=== PATIENT | female | born 1945 | race Caucasian/White ===

== ENCOUNTER → 2016-12-03 | Outpatient (CLI) | payer MEDICARE, OTHER ==
[~2016-12-03] MED LIST: ALPR.25T PO; ALPR0.254 PO; AMLO1CAP4 PO; ASCO-262 PO; ASP325T PO; ASP81CT PO; ASP81TEC PO; ATOR40TA70 PO; ATOR80TA PO; BNZ10T PO; BNZ20T PO; CALC-656 PO; CARV3.12 PO; CARV6.252 PO; CEPH500C PO; CHOL10003 PO; FISH OIL PO; FLAX100031 PO; FLC1T PO; GABA-486 PO; GABA-488 PO; GINK60CA13 PO; HCTZ12.5T PO; HYDR12.56 PO; MULT-974 PO; NITR0.3T6 SL; OMEG-12 PO; SERT50TA9 PO; SMV20T PO; TICA90TA PO; TRAM50TA2 PO; UBID100C27 PO; UBID200C PO; UBID30CA13 PO; VITA-198 PO; [UNRECOGNIZED DRUG - OTHER] PO; [UNRECOGNIZED DRUG - OTHER] PO; [UNRECOGNIZED DRUG - REMARK] PO
--- NOTE | 2016-12-03 11:30 | Diagnostic Imaging Report ---
Left leg duplex arterial ultrasound. INDICATION: Left leg pain with walking. FINDINGS: There are triphasic waveforms in the common femoral artery with transition to biphasic waveforms throughout the distal arteries to the foot in the left leg. The color Doppler demonstrates patency of vessels including the posterior tibial and dorsalis pedis in the foot. The velocities range from 61-166 cm/sec in the femoropopliteal segments and is 64 cm/sec in the posterior tibial artery. Slightly diminished flow velocity in the dorsalis pedis artery at 33 cm/sec is seen. The grayscale images demonstrate no significant plaque identified the in the femoropopliteal segments. IMPRESSION: No ultrasound evidence of significant arterial disease in the left leg. Dictated by: Dictated on workstation # [id number]
== END ==
LOC: RAD 08:38
PROVIDERS: ATTEND Family Medicine
DX: M79.605 Pain in left leg (principal)
CPT/HCPCS: 93926

== ENCOUNTER → 2016-12-06 | Outpatient (CLI) | payer MEDICARE, OTHER ==
--- NOTE | 2016-12-06 18:00 | Diagnostic Imaging Report ---
Three views of the left knee. INDICATION: Left knee pain. FINDINGS: No acute fracture or dislocation seen. Prosthesis with screws in the tibia and femur appear to relate to ACL graft surgery seen. No suprapatellar effusion is noted. There is suggestion of prominent osteophyte formation laterally with possible posttraumatic component along the lateral aspect of the tibial plateau. No significant joint space loss is seen. Only mild osteophytes in the medial and patellofemoral joint seen. IMPRESSION: No acute process. Dictated by: Dictated on workstation # [id number]
--- NOTE | 2016-12-06 18:08 | Diagnostic Imaging Report ---
Two views of the left tibia and fibula. The uppermost aspect of the tibia and fibula are included and concurrent left knee radiographs. There is no fracture or dislocation seen. Portion of tibial screw from prior ACL repair seen. The ankle joint appear grossly unremarkable. IMPRESSION: No acute process. Dictated by: Dictated on workstation # [id number]
== END ==
LOC: RAD 10:35
PROVIDERS: ATTEND Family Medicine
DX: M79.662 Pain in left lower leg (principal); M25.562 Pain in left knee
CPT/HCPCS: 73562; 73590

== ENCOUNTER → 2017-01-01 | Outpatient (CLI) | payer MEDICARE, OTHER ==
--- NOTE | 2017-01-01 15:48 | Diagnostic Imaging Report ---
Left renal ultrasound. INDICATION: Mass seen in the left kidney on MRI of the lumbar spine. FINDINGS: The left kidney is 10.5 cm in length. No focal lesion is identified. No hydronephrosis. IMPRESSION: No focal lesion is identified in the left kidney. If there is high index of suspicion, then dedicated CT scan or MRI of the kidneys could be helpful. Dictated by: Dictated on workstation # [id number]
--- NOTE | 2017-01-01 15:53 | Diagnostic Imaging Report ---
PROCEDURE: US Bilateral lower extremity arterial. TECHNIQUE: Multiple real-time grayscale images are obtained through both lower extremity arterial systems with color Doppler imaging and color Doppler spectral analysis. INDICATION: Weak pulses in the left foot. FINDINGS: Grayscale images demonstrate minimal atherosclerotic plaque in the femoropopliteal segments. Color Doppler demonstrates patency of the main arteries and the lower extremity on both sides from the common femoral to the posterior tibial and dorsalis pedis arteries. On the right side, the peak systolic velocities are in the range of 64 to 183 cm/sec in the femoropopliteal segments with mostly biphasic waveforms seen. Velocity in the posterior tibial is 75 cm/sec and in the dorsalis pedis is 45 cm/sec. On the left side, velocities are in the range of 99-211 cm/sec in the femoropopliteal segments with biphasic waveforms. The dorsalis pedis velocity is 49 and posterior tibial velocity is 86 cm/sec. IMPRESSION: Mild atherosclerotic plaque is seen in the lower extremities with largely biphasic waveforms. No focal significant stenosis is identified. Dictated by: Dictated on workstation # [id number]
== END ==
LOC: RAD 12:59
PROVIDERS: ATTEND Orthopaedic Surgery
DX: I70.203 Unspecified atherosclerosis of native arteries of extremities, bilateral legs (principal); N28.1 Cyst of kidney, acquired
CPT/HCPCS: 76775; 93925

== ENCOUNTER 2017-03-21 14:30 | Outpatient (RCR) | payer MEDICARE, OTHER | END 2017-04-07 | disposition home or self-care (01) | PROVIDERS: ATTEND Physician Assistant | DX: M48.06 Spinal stenosis, lumbar region (principal); M54.16 Radiculopathy, lumbar region ==

== ENCOUNTER → 2017-07-17 | Outpatient (CLI) | payer MEDICARE, OTHER ==
--- NOTE | 2017-07-17 17:59 | Diagnostic Imaging Report ---
PROCEDURE: US Thyroid. TECHNIQUE: Multiple real-time grayscale images were obtained of the thyroid in various projections. INDICATION: Thyroid nodule. FINDINGS: The previous thyroid ultrasound exam performed on 09/19/2016 noted a complex predominantly solid nodule involving the mid portion inferior pole of the left lobe. This measured 3.4 x 1.6 x 1.5 cm. This lesion was biopsied using ultrasound guidance on 10/08/2016. The pathology report noted follicular pattern growth and prominent fibrosis but failed to show any papillary features. On this exam, the nodule is again identified and measures 3.2 x 1.5 x 1.5 cm. The stability of this finding over a nearly year period would suggest that it is not related to an aggressive process. The previous study also identified another nodule in the mid portion of the left lobe. This nodule measures 1.1 x 0.5 x 0.9 cm and also seems similar in size to the previous exam. There is another subcentimeter nodule in the left lobe of the thyroid and it too is similar to the previous study. The hypoechoic nodules in the right lobe seen previously are again evident and no different. The thyroid gland is not enlarged with the right lobe measuring 4.7 x 1.3 x 1.2 cm and the left lobe estimated to be 4.5 x 1.7 x 1.7 cm (normal 4-5 x 2 x 2 cm or less). IMPRESSION: 1. The large complex nodule associated with the left lobe of the thyroid seen previously is again evident and no different. Most likely, this is a benign process. It may prove worthwhile to have a short-term (six-month) follow-up ultrasound exam for further study. 2. The overall appearance of the thyroid gland itself is otherwise no different. No new abnormality has developed. Dictated by: Dictated on workstation # [id number]
== END ==
LOC: RAD 12:16
PROVIDERS: ATTEND Family Medicine
DX: E04.1 Nontoxic single thyroid nodule (principal)
CPT/HCPCS: 76536

== ENCOUNTER → 2017-11-20 | Outpatient (CLI) | payer MEDICARE, OTHER ==
--- NOTE | 2017-11-21 10:07 | Diagnostic Imaging Report ---
Bilateral screening mammogram 2D views with tomosynthesis The current study was also evaluated with a Computer Aided Detection (CAD) system. Indication: Screening. No current complaints stated on the questionnaire. COMPARISON: 03/09/2015 Findings: The breasts are composed of scattered fibroglandular densities. There are scattered benign-appearing and vascular calcifications seen. Allowing for technique and positional differences, no suspicious change is seen. IMPRESSION: No significant change. ACR BI-RADS Category 2: Benign findings. Result letter will be mailed to the patient. Note: At least 10% of breast cancer is not imaged by mammography. Dictated by: Dictated on workstation # [id number]
== END ==
LOC: RAD 11:26
PROVIDERS: ATTEND Family Medicine
DX: Z12.31 Encounter for screening mammogram for malignant neoplasm of breast (principal)
CPT/HCPCS: 77067

== ENCOUNTER 2017-11-25 10:47 | Outpatient (RCR) | payer MEDICARE, OTHER | END 2018-01-02 10:22 | disposition home or self-care (01) | PROVIDERS: ATTEND Family Medicine | DX: M54.16 Radiculopathy, lumbar region (principal) ==

== ENCOUNTER → 2018-01-07 | Outpatient (CLI) | payer MEDICARE, OTHER ==
--- NOTE | 2018-01-07 13:10 | Diagnostic Imaging Report ---
PROCEDURE: US carotid duplex, bilateral. TECHNIQUE: Multiple real-time grayscale images were obtained over the carotid arteries in various projections, bilaterally. Additional duplex Doppler and color Doppler images were also obtained. INDICATION: Stenosis with right-sided stent. FINDINGS: There are no previous ultrasound examinations available for comparison. The CTA neck exam of 03/19/2016 indicated an 80% stenosis of the proximal internal carotid artery on the right. Reportedly in the interval since the prior exam, a stent has been inserted into the area of stenosis in the right internal carotid artery. The stent is visualized on this exam. The flow velocities failed to show any sign of a hemodynamically significant stenosis of the internal carotid artery. The IC/CC ratio is approximately 2.0. The previous CTA neck exam indicated a 40-50% stenosis of the internal carotid artery on the left. On this study, there is no sign of a hemodynamically significant stenosis of the left carotid system. The IC/CC ratio is 1.2. Both vertebral are noted and there is antegrade flow bilaterally. IMPRESSION: 1. There has been interval insertion of a stent into the internal carotid artery on the right. There is no evidence for a hemodynamically significant stenosis of the right carotid system. 2. There is still no hemodynamically significant stenosis of the left carotid system either. 3. Both vertebral arteries are patent and there is antegrade flow bilaterally. Dictated by: Dictated on workstation # [id number]
== END ==
LOC: RAD 11:31
PROVIDERS: ATTEND Nurse Practitioner
DX: I65.23 Occlusion and stenosis of bilateral carotid arteries (principal); Z95.5 Presence of coronary angioplasty implant and graft
CPT/HCPCS: 93880

== ENCOUNTER → 2018-02-20 | Outpatient (CLI) | payer MEDICARE ==
--- NOTE | 2018-02-20 13:08 | Diagnostic Imaging Report ---
PROCEDURE: US Thyroid. TECHNIQUE: Multiple real-time grayscale images were obtained of the thyroid in various projections. INDICATION: Followup thyroid nodules. COMPARISON: Comparison is made with prior exam from 07/17/2017. FINDINGS: The right lobe of thyroid measures 4.4 x 1.2 x 1.0 cm and left lobe measures 4.6 x 1.8 x 1.6 cm. There is a small hypoechoic solid nodule in the right lobe, unchanged measuring approximately 6 mm x 4 mm. Several small cysts are present as well. On the left, there is a dominant solid mass in the mid and lower aspect measuring 3.2 x 1.5 x 1.4 cm, stable. There is also mixed solid and cystic mass measuring 1.1 x 0.5 x 0.9 cm, stable. No new mass is detected. IMPRESSION: Stable bilateral thyroid nodules when compared with prior exam from 07/17/2017. Dictated by: Dictated on workstation # [id number]
== END ==
LOC: RAD 12:09
PROVIDERS: ATTEND Family Medicine
DX: E04.2 Nontoxic multinodular goiter (principal)
CPT/HCPCS: 76536

== ENCOUNTER → 2018-03-17 | Outpatient (CLI) | payer MEDICARE ==
[~2018-03-17] VITALS: Ht 177.8 cm; Wt 72.6 kg
[~2018-03-17] MED LIST changes: +ACHD5005 PO; +AMLO5TAB2 PO; +ASPI-999 PO; +BENA40TA5 PO; +CARV12.53 PO; +CEFD300C3 PO; +CHOL10007 PO; +CLOP75TA28 PO; +DOCU-143 PO; +FENO54TA PO; +FOLI0.4T2 PO; +GABA800T2 PO; +GARL10002 PO; +HYDR-3812 PO; +HYDR25TA4 PO; +LEVO100T7 PO; +NF-VITD400 PO; +OMG1KC PO; +ROSU5TAB PO; +UBID200C16 PO; +VITA400C60 PO
== END ==
LOC: PREOP 05:40
PROVIDERS: ATTEND Surgery
DX: Z01.818 Encounter for other preprocedural examination (principal); Z12.11 Encounter for screening for malignant neoplasm of colon

== ENCOUNTER 2018-04-20 05:41 | Outpatient (CLI) | payer MEDICARE ==
[~2018-04-20] VITALS: Ht 177.8 cm; Wt 72.6 kg
[~2018-04-20 05:41] MED LIST changes: -ACHD5005 PO; -BENA40TA5 PO; +BNZ40T PO; -GARL10002 PO; -LEVO100T7 PO; -NF-VITD400 PO
[2018-04-20] MEDS ORDERED: GARL10002 PO (14:25)
[2018-04-20] MEDS ORDERED: NF-VITD400 PO (14:25)
[2018-04-21] MEDS ORDERED: ACHD5005 PO (14:18)
[2018-04-21] MEDS ORDERED: LEVO100T7 PO (14:19)
== END 2018-04-20 14:27 ==
LOC: PREOP 05:41
PROVIDERS: ATTEND Surgery
DX: Z01.818 Encounter for other preprocedural examination (principal)

== ENCOUNTER 2018-04-21 10:32 | Inpatient (IN) | payer MEDICARE ==
[~2018-04-21] VITALS: Ht 177.8 cm; Wt 72.6 kg
[~2018-04-21 10:32] MED LIST changes: +GARL10002 PO; +NF-VITD400 PO
[2018-04-21] MEDS ORDERED: BUP/EPI 0.5% 1:200,000 (SENSORCAINE) 30 ML VIAL ONE (10:35)
[2018-04-21] MEDS ORDERED: THROMBIN SPRAY KIT 5,000 UNIT VIAL ONE ×2 (10:35→23:57)
[2018-04-21 10:40] VITALS: BP 115/55
[2018-04-21 11:10] LABS: BASOPHILS # (AUTO) 0.1 10^3/uL (0.0-0.1); BASOPHILS % (AUTO) 3 % (0-10); EOSINOPHILS # (AUTO) 0.2 10^3/uL (0.0-0.3); EOSINOPHILS % (AUTO) 5 % (0-10); HEMATOCRIT 41 % (35-52); HEMOGLOBIN 13.5 G/DL (11.5-16.0); LYMPHOCYTES # (AUTO) 1.8 X 10^3 (1.0-4.0); LYMPHOCYTES % (AUTO) 39 % (12-44); MEAN CORPUSCULAR HEMOGLOBIN 30 PG (25-34); MEAN CORPUSCULAR HGB CONC 33 G/DL (32-36); MEAN CORPUSCULAR VOLUME 92 FL (80-99); MEAN PLATELET VOLUME 9.6 FL (7.4-10.4); MONOCYTES # (AUTO) 0.5 X 10^3 (0.0-1.0); MONOCYTES % (AUTO) 10 % (0-12); NEUTROPHILS % (AUTO) 44 % (42-75); PLATELET COUNT 277 10^3/uL (130-400); RED BLOOD COUNT 4.45 10^6/uL (4.35-5.85); RED CELL DISTRIBUTION WIDTH 12.5 % (10.0-14.5); WHITE BLOOD COUNT 4.6 10^3/uL (4.3-11.0)
[2018-04-21] MEDS ORDERED: fentaNYL INJECTION 100 MCG/2 ML AMP ONE (11:11)
--- OUTSIDE RECORDS SUMMARY | 2018-04-21 11:15 | XMS REPORT | Continuity of Care Document ---
Author Author [facility] Organization [facility] Address Unknown Phone Unavailable Allergies Active Description Code Type Severity Reaction Onset Reported/Identified Relationship to Patient Clinical Status Yes No Known Drug Allergies [id number] Drug Allergy Unknown N/A 03/17/2018 Medications There is no data. Problems Date Dx Coded Attending Type Code Diagnosis Diagnosed By 10/30/1021 DAKOTA SOLIZ DO Ot M54.16 RADICULOPATHY, LUMBAR REGION 03/20/2012 Ot 272.4 HYPERLIPIDEMIA NEC/NOS 03/20/2012 Ot 300.00 ANXIETY STATE NOS 03/20/2012 Ot 305.1 TOBACCO USE DISORDER 03/20/2012 Ot 401.9 HYPERTENSION NOS 03/20/2012 Ot 410.91 ACUTE MYOCARD INFARCT,UNSPEC SITE,INITIA 03/20/2012 Ot 414.01 CORONARY ATHEROSCLEROSIS OF [place] CORON 03/20/2012 Ot 428.0 CONGESTIVE HEART FAILURE NOS 03/20/2012 Ot 428.21 ACUTE SYSTOLIC HEART FAILURE 03/20/2012 Ot V17.49 FAMILY HISTORY OF OTHER CARDIOVASCULAR D 04/02/2012 Ot 272.4 HYPERLIPIDEMIA NEC/NOS 04/02/2012 Ot 305.1 TOBACCO USE DISORDER 04/02/2012 Ot 401.9 HYPERTENSION NOS 04/02/2012 Ot 412 OLD MYOCARDIAL INFARCT 04/02/2012 Ot 414.01 CORONARY ATHEROSCLEROSIS OF [place] CORON 04/02/2012 Ot V45.82 PERCUTANEOUS TRANSLUM CORON ANGIOPLASTY 04/02/2012 Ot V58.66 LONG-TERM ( 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 04/02/2012 Ot V58.69 OTH MED,LT, CURRENT USE 04/08/2013 ABBEY BURNETT MD Ot 272.4 HYPERLIPIDEMIA NEC/NOS 04/08/2013 ABBEY BURNETT MD Ot 300.00 ANXIETY STATE NOS 04/08/2013 ABBEY BURNETT MD Ot 305.1 TOBACCO USE DISORDER 04/08/2013 ABBEY BURNETT MD Ot 401.9 HYPERTENSION NOS 04/08/2013 ABBEY BURNETT MD Ot 414.01 CORONARY ATHEROSCLEROSIS OF [place] CORON 04/08/2013 ABBEY BURNETT MD Ot 427.5 CARDIAC ARREST 04/08/2013 ABBEY BURNETT MD Ot 786.50 CHEST PAIN NOS 04/08/2013 ABBEY BURNETT MD Ot V45.82 PERCUTANEOUS TRANSLUM CORON ANGIOPLASTY 04/08/2013 ABBEY BURNETT MD Ot V58.61 ANTICOAGULANTS,LT,CURRENT USE 04/08/2013 ABBEY BURNETT MD Ot V58.66 LONG-TERM (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 04/08/2013 ABBEY BURNETT MD Ot V58.69 OTH MED,LT,CURRENT USE 05/15/2013 CRISTINA DONALD DO K Ot 401.9 HYPERTENSION NOS 07/11/2014 YVETTE GROVE Ot 300.00 ANXIETY STATE NOS 07/11/2014 YVETTE GROVE Ot 305.1 TOBACCO USE DISORDER 07/11/2014 YVETTE GROVE Ot 412 OLD MYOCARDIAL INFARCT 07/11/2014 YVETTE GROVE Ot 882.0 OPEN WOUND OF HAND 07/11/2014 YVETTE GROVE Ot E849.0 ACCIDENT IN HOME 07/11/2014 YVETTE GROVE Ot E920.8 ACC-CUTTING INSTRUM NEC 07/11/2014 YVETTE GROVE Ot V58.61 ANTICOAGULANTS,LT,CURRENT USE 07/11/2014 YVETTE GROVE Ot V58.66 LONG-TERM (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 07/21/2014 CAR SALCEDO MD Ot V58.32 ENCOUNTER FOR REMOVAL OF SUTURES 07/27/2014 ABBEY BURNETT MD Ot 272.4 HYPERLIPIDEMIA NEC/NOS 07/27/2014 ABBEY BURNETT MD Ot 300.00 ANXIETY STATE NOS 07/27/2014 ABBEY BURNETT MD Ot 305.1 TOBACCO USE DISORDER 07/27/2014 ABBEY BURNETT MD Ot 401.9 HYPERTENSION NOS 07/27/2014 ABBEY BURNETT MD Ot 414.01 CORONARY ATHEROSCLEROSIS OF [place] CORON 07/27/2014 ABBEY BURNETT MD Ot 786.50 CHEST PAIN NOS 07/27/2014 ABBEY BURNETT MD Ot 794.30 ABN CARDIOVASC STUDY NOS 07/27/2014 ABBEY BURNETT MD Ot V45.82 PERCUTANEOUS TRANSLUM CORON ANGIOPLASTY 07/27/2014 ABBEY BURNETT MD Ot V58.63 LONG-TERM(CURRENT)USE OF ANTIPLATELET/AN 07/27/2014 ABBEY BURNETT MD Ot V58.69 OTH MED,LT,CURRENT USE 04/29/2015 DAKOTA SOLIZ DO Ot V76.12 03/19/2016 Ot V76.12 OTH SCREEN MAMMO-MALIGN NEOPLASM OF TERRI 03/19/2016 Ot V76.12 OTH SCREEN MAMMO-MALIGN NEOPLASM OF TERRI 03/19/2016 ABBEY BURNETT MD Ot 272.4 HYPERLIPIDEMIA NEC/NOS 03/19/2016 ABBEY BURNETT MD Ot 401.9 HYPERTENSION NOS 03/19/2016 ABBEY BURNETT MD Ot 414.00 CORON ATHEROSCLER NOS TYPE VESSEL, NATIV 03/19/2016 DAKOTA SOLIZ DO Ot 793.89 OTH (ABN) FINDINGS ON RADIOLOGICAL EXAMI 03/19/2016 DAKOTA SOLIZ DO Ot V76.12 OTH SCREEN MAMMO-MALIGN NEOPLASM OF TERRI 03/19/2016 DAKOTA SOLIZ DO Ot 610.4 MAMMARY DUCT ECTASIA 03/19/2016 DAKOTA SOLIZ DO Ot 793.89 OTH (ABN) FINDINGS ON RADIOLOGICAL EXAMI 03/19/2016 HARSH ZHAO Ot 272.4 HYPERLIPIDEMIA NEC/NOS 03/19/2016 HARSH ZHAO Ot 305.1 TOBACCO USE DISORDER 03/19/2016 HARSH ZHAO Ot 401.9 HYPERTENSION NOS 03/19/2016 HARSH ZHAO Ot 414.00 CORON ATHEROSCLER NOS TYPE VESSEL, NATIV 03/19/2016 HARSH ZHAO Ot 272.4 HYPERLIPIDEMIA NEC/NOS 03/19/2016 HARSH ZHAO Ot 396.3 MITRAL/AORTIC JOSE INSUFF 03/19/2016 HARSH ZHAO Ot 397.0 TRICUSPID VALVE DISEASE 03/19/2016 HARSH ZHAO Ot 401.9 HYPERTENSION NOS 03/19/2016 HARSH ZHAO Ot 414.00 CORON ATHEROSCLER NOS TYPE VESSEL, NATIV 03/19/2016 DAKOTA SOLIZ DO A Ot V76.12 OTH SCREEN MAMMO-MALIGN NEOPLASM OF TERRI 03/20/2016 HORTENCIA LIU, ABBEY John Ot I65.23 OCCLUSION AND STENOSIS OF BILATERAL [place] 03/29/2016 HARSH ZHAO Ot E78.2 MIXED HYPERLIPIDEMIA 03/29/2016 HARSH ZHAO Ot I10 ESSENTIAL (PRIMARY) HYPERTENSION 03/29/2016 HARSH ZHAO Ot I25.10 ATHSCL HEART DISEASE OF [place] CORONARY 03/29/2016 HARSH ZHAO Ot Z72.0 TOBACCO USE 04/01/2016 HARSH ZHAO Ot E78.2 MIXED HYPERLIPIDEMIA 04/01/2016 HARSH ZHAO Ot I10 ESSENTIAL (PRIMARY) HYPERTENSION 04/01/2016 HARSH ZHAO Ot I25.10 ATHSCL HEART DISEASE OF [place] CORONARY 04/01/2016 HARSH ZHAO Ot Z72.0 TOBACCO USE 04/02/2016 HARSH ZHAO Ot E78.2 MIXED HYPERLIPIDEMIA 04/02/2016 HARSH ZHAO Ot I10 ESSENTIAL (PRIMARY) HYPERTENSION 04/02/2016 HARSH ZHAO Ot I25.10 ATHSCL HEART DISEASE OF [place] CORONARY 04/02/2016 HARSH ZHAO Ot Z72.0 TOBACCO USE 04/03/2016 HARSH ZHAO Ot E78.2 MIXED HYPERLIPIDEMIA 04/03/2016 HARSH ZHAO Ot I10 ESSENTIAL (PRIMARY) HYPERTENSION 04/03/2016 HARSH ZHAO Ot I25.10 ATHSCL HEART DISEASE OF [place] CORONARY 04/03/2016 HARSH ZHAO Ot Z72.0 TOBACCO USE 04/07/2016 HARSH ZHAO Ot E78.2 MIXED HYPERLIPIDEMIA 04/07/2016 HARSH ZHAO K Ot I10 ESSENTIAL (PRIMARY) HYPERTENSION 04/07/2016 HARSH ZHAO Ot I25.10 ATHSCL HEART DISEASE OF [place] CORONARY 04/07/2016 HARSH ZHAO Ot Z72.0 TOBACCO USE 04/09/2016 HORTENCIA LIU, ABBEY John Ot I65.23 OCCLUSION AND STENOSIS OF BILATERAL [place] 04/18/2016 HARSH ZHAO Ot E78.2 MIXED HYPERLIPIDEMIA 04/18/2016 HARSH ZHAO Ot I10 ESSENTIAL (PRIMARY) HYPERTENSION 04/18/2016 HARSH ZHAO Ot I25.10 ATHSCL HEART DISEASE OF [place] CORONARY 04/18/2016 HARSH ZHAO Ot Z72.0 TOBACCO USE 04/23/2016 HARSH ZHAO Ot E78.2 MIXED HYPERLIPIDEMIA 04/23/2016 HARSH ZHAO Ot I10 ESSENTIAL (PRIMARY) HYPERTENSION 04/23/2016 HARSH ZHAO Ot I25.10 ATHSCL HEART DISEASE OF [place] CORONARY 04/23/2016 HARSH ZHAO Ot Z72.0 TOBACCO USE 09/19/2016 Ot V76.12 OTH SCREEN MAMMO-MALIGN NEOPLASM OF TERRI 09/19/2016 Ot V76.12 OTH SCREEN MAMMO-MALIGN NEOPLASM OF TERRI 09/19/2016 ABBEY BURNETT MD Ot 272.4 HYPERLIPIDEMIA NEC/NOS 09/19/2016 ABBEY BURNETT MD Ot 401.9 HYPERTENSION NOS 09/19/2016 ABBEY BURNETT MD Ot 414.00 CORON ATHEROSCLER NOS TYPE VESSEL, NATIV 09/19/2016 DAKOTA SOLIZ DO Ot 793.89 OTH (ABN) FINDINGS ON RADIOLOGICAL EXAMI 09/19/2016 DAKOTA SOLIZ DO Ot V76.12 OTH SCREEN MAMMO-MALIGN NEOPLASM OF TERRI 09/19/2016 DAKOTA SOLIZ DO Ot 610.4 MAMMARY DUCT ECTASIA 09/19/2016 DAKOTA SOLIZ DO Ot 793.89 OTH (ABN) FINDINGS ON RADIOLOGICAL EXAMI 09/19/2016 HARSH ZHAO Ot 272.4 HYPERLIPIDEMIA NEC/NOS 09/19/2016 HARSH ZHAO Ot 305.1 TOBACCO USE DISORDER 09/19/2016 HARSH ZHAO Ot 401.9 HYPERTENSION NOS 09/19/2016 LAMONT ROSEN, HARSH Ortiz Ot 414.00 CORON ATHEROSCLER NOS TYPE VESSEL, NATIV 09/19/2016 HARSH ZHAO Ot 272.4 HYPERLIPIDEMIA NEC/NOS 09/19/2016 HARSH ZHAO Ot 396.3 MITRAL/AORTIC JOSE INSUFF 09/19/2016 HARSH ZHAO Ot 397.0 TRICUSPID VALVE DISEASE 09/19/2016 HARSH ZHAO Ot 401.9 HYPERTENSION NOS 09/19/2016 HARSH ZHAO Ot 414.00 CORON ATHEROSCLER NOS TYPE VESSEL, NATIV 09/19/2016 DAKOTA SOLIZ DO Ot V76.12 OTH SCREEN MAMMO-MALIGN NEOPLASM OF TERRI 09/19/2016 HORTENCIA LIU, ABBEY John Ot I65.23 OCCLUSION AND STENOSIS OF BILATERAL [place] 09/19/2016 HARSH ZHAO Ot E78.2 MIXED HYPERLIPIDEMIA 09/19/2016 HARSH ZHAO Ot I10 ESSENTIAL (PRIMARY) HYPERTENSION 09/19/2016 HARSH ZHAO Ot I25.10 ATHSCL HEART DISEASE OF [place] CORONARY 09/19/2016 HARSH ZHAO Ot Z72.0 TOBACCO USE 09/19/2016 HARSH ZHAO Ot E78.2 MIXED HYPERLIPIDEMIA 09/19/2016 HARSH ZHAO Ot I10 ESSENTIAL (PRIMARY) HYPERTENSION 09/19/2016 HARSH ZHAO Ot I25.10 ATHSCL HEART DISEASE OF [place] CORONARY 09/19/2016 HARSH ZHAO Ot Z72.0 TOBACCO USE 09/19/2016 HARSH ZHAO Ot E78.2 MIXED HYPERLIPIDEMIA 09/19/2016 HARSH ZHAO Ot I10 ESSENTIAL (PRIMARY) HYPERTENSION 09/19/2016 HARSH ZHAO Ot I25.10 ATHSCL HEART DISEASE OF [place] CORONARY 09/19/2016 HARSH ZHAO Ot Z72.0 TOBACCO USE 09/19/2016 HARSH ZHAO Ot Z86.39 PERSONAL HISTORY OF ENDO, NUTRITIONAL AN 09/24/2016 LAMONT ROSEN, HARSH Ortiz Ot E78.2 MIXED HYPERLIPIDEMIA 09/24/2016 HARSH ZHAO Ot I10 ESSENTIAL (PRIMARY) HYPERTENSION 09/24/2016 HARSH ZHAO Ot I25.10 ATHSCL HEART DISEASE OF [place] CORONARY 09/24/2016 HARSH ZHAO Ot Z72.0 TOBACCO USE 09/24/2016 HARSH ZHAO Ot Z86.39 PERSONAL HISTORY OF ENDO, NUTRITIONAL AN 10/09/2016 GELLENDER DO, DAKOTA Watkins Ot E04.9 NONTOXIC GOITER, UNSPECIFIED 10/09/2016 GELLENDER DO, DAKOTA Watkins Ot E04.9 NONTOXIC GOITER, UNSPECIFIED 10/10/2016 HARSH ZHAO Ot E78.2 MIXED HYPERLIPIDEMIA 10/10/2016 HARSH ZHAO Ot I10 ESSENTIAL (PRIMARY) HYPERTENSION 10/10/2016 HARSH ZHAO Ot I25.10 ATHSCL HEART DISEASE OF [place] CORONARY 10/10/2016 HARSH ZHAO Ot Z72.0 TOBACCO USE 10/10/2016 HARSH ZHAO Ot Z86.39 PERSONAL HISTORY OF ENDO, NUTRITIONAL AN 11/01/2016 GELLENDER DO, DAKOTA Watkins Ot E04.9 NONTOXIC GOITER, UNSPECIFIED 12/04/2016 GELLENDER DO, DAKOTA Watkins Ot M79.605 PAIN IN LEFT LEG 12/04/2016 GELLENDER DO, DAKOTA Watkins Ot M79.605 PAIN IN LEFT LEG 12/09/2016 GELLENDER DO, DAKOTA Watkins Ot M79.605 PAIN IN LEFT LEG 12/10/2016 GELLENDER DO, DAKOTA Watkins Ot M25.562 PAIN IN LEFT KNEE 12/10/2016 GELLENDER DO, DAKOTA Watkins Ot M79.662 PAIN IN LEFT LOWER LEG 12/26/2016 GELLENDER DO, DAKOTA Watkins Ot M25.562 PAIN IN LEFT KNEE 12/26/2016 GELLENDER DO, DAKOTA Watkins Ot M79.662 PAIN IN LEFT LOWER LEG 01/02/2017 ROMAINE MACHADO DO Ot I70.203 [facility] [place] [facility] 01/02/2017 ROMAINE MACHADO DO Ot N28.1 CYST OF KIDNEY, ACQUIRED 01/02/2017 ROMAINE MACHADO DO Ot I70.203 [facility] [place] [facility] 01/02/2017 ROMAINE MACHADO DO Ot N28.1 CYST OF KIDNEY, ACQUIRED 01/02/2017 DAOKTA SOLIZ DO Ot M79.605 PAIN IN LEFT LEG 01/23/2017 ROMAINE MACHADO DO Ot I70.203 [facility] [place] [facility] 01/23/2017 ROMAINE MACHADO DO Ot N28.1 CYST OF KIDNEY, ACQUIRED 02/27/2017 DORITA SANTIAGO Ot M48.06 SPINAL STENOSIS, LUMBAR REGION 02/27/2017 DORITA SANTIAGO Ot M54.16 RADICULOPATHY, LUMBAR REGION 04/07/2017 DORITA SANTIAGO Ot M48.06 SPINAL STENOSIS, LUMBAR REGION 04/07/2017 DORITA SANTIAGO Ot M54.16 RADICULOPATHY, LUMBAR REGION 07/23/2017 DAKOTA SOLIZ DO Ot E04.1 NONTOXIC SINGLE THYROID NODULE 08/08/2017 DAKOTA SOLIZ DO Ot E04.1 NONTOXIC SINGLE THYROID NODULE 11/20/2017 DAKOTA SOLIZ DO Ot M54.16 RADICULOPATHY, LUMBAR REGION 12/11/2017 DAKOTA SOLIZ DO Ot Z12.31 ENCNTR SCREEN MAMMOGRAM FOR MALIGNANT NE 12/29/2017 DAKOTA SOLIZ DO Ot M54.16 RADICULOPATHY, LUMBAR REGION 12/29/2017 SASKIA JOYNERP Ot I65.23 OCCLUSION AND STENOSIS OF BILATERAL [place] 12/29/2017 SASKIA JOYNER Ot I65.23 OCCLUSION AND STENOSIS OF BILATERAL [place] 12/29/2017 SASKIA JOYNER Ot I65.23 OCCLUSION AND STENOSIS OF BILATERAL [place] 12/29/2017 HORTENCIA LIU, ABBEY John Ot 272.4 HYPERLIPIDEMIA NEC/NOS 12/29/2017 ABBEY BURNETT MD Ot 401.9 HYPERTENSION NOS 12/29/2017 ABBEY BURNETT MD Ot 414.00 CORON ATHEROSCLER NOS TYPE VESSEL, NATIV 12/29/2017 DAKOTA SOLIZ DO Ot 793.89 OTH (ABN) FINDINGS ON RADIOLOGICAL EXAMI 12/29/2017 DAKOTA SOLIZ DO Ot V76.12 OTH SCREEN MAMMO-MALIGN NEOPLASM OF TERRI 12/29/2017 DAKOTA SOLIZ DO Ot 610.4 MAMMARY DUCT ECTASIA 12/29/2017 DAKOTA SOLIZ DO Ot 793.89 OTH (ABN) FINDINGS ON RADIOLOGICAL EXAMI 12/29/2017 HARSH ZHAO Ot 272.4 HYPERLIPIDEMIA NEC/NOS 12/29/2017 HARSH ZHAO Ot 305.1 TOBACCO USE DISORDER 12/29/2017 HARSH ZHAO Ot 401.9 HYPERTENSION NOS 12/29/2017 HARSH ZHAO Ot 414.00 CORON ATHEROSCLER NOS TYPE VESSEL, NATIV 12/29/2017 HARSH ZHAO Ot 272.4 HYPERLIPIDEMIA NEC/NOS 12/29/2017 HARSH ZHAO Ot 396.3 MITRAL/AORTIC JOSE INSUFF 12/29/2017 HARSH ZHAO Ot 397.0 TRICUSPID VALVE DISEASE 12/29/2017 HARSH ZHAO Ot 401.9 HYPERTENSION NOS 12/29/2017 HARSH ZHAO Ot 414.00 CORON ATHEROSCLER NOS TYPE VESSEL, NATIV 12/29/2017 DAKOTA SOLIZ DO Ot V76.12 OTH SCREEN MAMMO-MALIGN NEOPLASM OF TERRI 12/29/2017 HORTENCIA LIU, ABBEY John Ot I65.23 OCCLUSION AND STENOSIS OF BILATERAL TS[place] 12/29/2017 HARSH ZHAO Ot E78.2 MIXED HYPERLIPIDEMIA 12/29/2017 HARSH ZHAO Ot I10 ESSENTIAL (PRIMARY) HYPERTENSION 12/29/2017 HARSH ZHAO Ot I25.10 ATHSCL HEART DISEASE OF [place] CORONARY 12/29/2017 HARSH ZHAO Ot Z72.0 TOBACCO USE 12/29/2017 HARSH ZHAO Ot E78.2 MIXED HYPERLIPIDEMIA 12/29/2017 HARSH ZHAO Ot I10 ESSENTIAL (PRIMARY) HYPERTENSION 12/29/2017 HARSH ZHAO Ot I25.10 ATHSCL HEART DISEASE OF [place] CORONARY 12/29/2017 HARSH ZHAO Ot Z72.0 TOBACCO USE 12/29/2017 HARSH ZHAO Ot E78.2 MIXED HYPERLIPIDEMIA 12/29/2017 HARSH ZHAO Ot I10 ESSENTIAL (PRIMARY) HYPERTENSION 12/29/2017 HARSH ZHAO Ot I25.10 ATHSCL HEART DISEASE OF [place] CORONARY 12/29/2017 HARSH ZHAO Ot Z72.0 TOBACCO USE 12/29/2017 HARSH ZHAO Ot Z86.39 PERSONAL HISTORY OF ENDO, NUTRITIONAL AN 12/29/2017 DAKOTA SOLIZ DO Ot E04.9 NONTOXIC GOITER, UNSPECIFIED 12/29/2017 DAKOTA SOLIZ DO Ot M79.605 PAIN IN LEFT LEG 12/29/2017 DAKOTA SOLIZ DO Ot M25.562 PAIN IN LEFT KNEE 12/29/2017 DAKOTA SOLIZ DO Ot M79.662 PAIN IN LEFT LOWER LEG 12/29/2017 ROMAINE MACHADO DO Ot I70.203 UN[facility] ATHSCL [place] ARTERIES OF EXTREMITI 12/29/2017 ROMAINE MACHADO DO Ot N28.1 CYST OF KIDNEY, ACQUIRED 12/29/2017 DAKOTA SOLIZ DO Ot E04.1 NONTOXIC SINGLE THYROID NODULE 12/29/2017 DAKOTA SOLIZ DO Ot Z12.31 ENCNTR SCREEN MAMMOGRAM FOR MALIGNANT NE 12/29/2017 DAKOTA SOLIZ DO Ot M54.16 RADICULOPATHY, LUMBAR REGION 12/29/2017 SASKIA JOYNER Ot I65.23 OCCLUSION AND STENOSIS OF BILATERAL TS[place] 01/02/2018 DAKOTA SOLIZ DO Ot M54.16 RADICULOPATHY, LUMBAR REGION 01/08/2018 SASKIA JOYNER Ot I65.23 OCCLUSION AND STENOSIS OF BILATERAL [place] 01/08/2018 SASKIA JOYNER Ot Z95.5 PRESENCE OF CORONARY ANGIOPLASTY IMPLANT 01/29/2018 SASKIA JOYNER Ot I65.23 OCCLUSION AND STENOSIS OF BILATERAL [place] 01/29/2018 JOYNERSASKIA BERGERON Ot Z95.5 PRESENCE OF CORONARY ANGIOPLASTY IMPLANT 02/23/2018 INDYCEANTOINEDAKOTA Ot E04.2 NONTOXIC MULTINODULAR GOITER 03/04/2018 HEYDI LOPEZDAKOTA Ot E04.2 NONTOXIC MULTINODULAR GOITER 03/17/2018 SASKIA JOYNER Ot I65.23 OCCLUSION AND STENOSIS OF BILATERAL TS[place] 03/18/2018 LUCRECIA LIU, NEGAR Hall Ot Z01.818 ENCOUNTER FOR OTHER PREPROCEDURAL EXAMIN 03/18/2018 NEGAR SINGER MD Ot Z12.11 ENCOUNTER FOR SCREENING FOR MALIGNANT NE 03/23/2018 NEGAR SINGER MD Ot E04.1 NONTOXIC SINGLE THYROID NODULE 03/23/2018 NEGAR SINGER MD Ot E78.00 PURE HYPERCHOLESTEROLEMIA, UNSPECIFIED 03/23/2018 NEGAR SINGER MD Ot F41.9 ANXIETY DISORDER, UNSPECIFIED 03/23/2018 NEGAR SINGER MD Ot I10 ESSENTIAL (PRIMARY) HYPERTENSION 03/23/2018 NEGAR SINGER MD Ot I25.10 ATHSCL HEART DISEASE OF [place] CORONARY 03/23/2018 NEGAR SINGER MD Ot I25.2 OLD MYOCARDIAL INFARCTION 03/23/2018 NEGAR SINGER MD Ot Z12.11 ENCOUNTER FOR SCREENING FOR MALIGNANT NE 03/23/2018 NEGAR SINGER MD Ot Z79.899 OTHER HALF-WAY (CURRENT) DRUG THERAPY 03/23/2018 NEGAR SINGER MD Ot Z83.71 FAMILY HISTORY OF COLONIC POLYPS 03/25/2018 NEGAR SINGER MD Ot E04.1 NONTOXIC SINGLE THYROID NODULE 03/25/2018 NEGAR SINGER MD Ot E78.00 PURE HYPERCHOLESTEROLEMIA, UNSPECIFIED 03/25/2018 NEGAR SINGER MD Ot F41.9 ANXIETY DISORDER, UNSPECIFIED 03/25/2018 NEGAR SINGER MD M Ot I10 ESSENTIAL (PRIMARY) HYPERTENSION 03/25/2018 NEGAR SINGER MD Ot I25.10 ATHSCL HEART DISEASE OF [place] CORONARY 03/25/2018 NEGAR SINGER MD Ot I25.2 OLD MYOCARDIAL INFARCTION 03/25/2018 NEGAR SINGER MD Ot Z12.11 ENCOUNTER FOR SCREENING FOR MALIGNANT NE 03/25/2018 LUCRECIA LIU, NEGAR Hall Ot Z79.899 OTHER VENDOR SPECIALIST (CURRENT) DRUG THERAPY 03/25/2018 LUCRECIA LIU, NEGAR Hall Ot Z83.71 FAMILY HISTORY OF COLONIC POLYPS 03/29/2018 LUCRECIA LIU, NEGAR Hall Ot E04.1 NONTOXIC SINGLE THYROID NODULE 03/29/2018 LUCRECIA LIU, NEGAR Hall Ot E78.00 PURE HYPERCHOLESTEROLEMIA, UNSPECIFIED 03/29/2018 NEGAR SINGER MD Ot F41.9 ANXIETY DISORDER, UNSPECIFIED 03/29/2018 NEGAR SINGER MD Ot I10 ESSENTIAL (PRIMARY) HYPERTENSION 03/29/2018 NEGAR SINGER MD Ot I25.10 ATHSCL HEART DISEASE OF [place] CORONARY 03/29/2018 NEGAR SINGER MD Ot I25.2 OLD MYOCARDIAL INFARCTION 03/29/2018 NEGAR SINGER MD Ot Z12.11 ENCOUNTER FOR SCREENING FOR MALIGNANT NE 03/29/2018 LUCRECIA LIU, NEGAR Hall Ot Z79.899 OTHER HALF-WAY (CURRENT) DRUG THERAPY 03/29/2018 NEGAR SINGER MD Ot Z83.71 FAMILY HISTORY OF COLONIC POLYPS 03/30/2018 ABBEY BURNETT MD Ot 272.4 HYPERLIPIDEMIA NEC/NOS 03/30/2018 ABBEY BURNETT MD Ot 401.9 HYPERTENSION NOS 03/30/2018 ABBEY BURNETT MD Ot 414.00 CORON ATHEROSCLER NOS TYPE VESSEL, NATIV 03/30/2018 DAKOTA SOLIZ DO Ot 793.89 OTH (ABN) FINDINGS ON RADIOLOGICAL EXAMI 03/30/2018 DAKOTA SOLIZ DO Ot V76.12 OTH SCREEN MAMMO-MALIGN NEOPLASM OF TERRI 03/30/2018 DAKOTA SOLIZ DO Ot 610.4 MAMMARY DUCT ECTASIA 03/30/2018 DAKOTA SOLIZ DO Ot 793.89 OTH (ABN) FINDINGS ON RADIOLOGICAL EXAMI 03/30/2018 HARSH ZHAO Ot 272.4 HYPERLIPIDEMIA NEC/NOS 03/30/2018 HARSH ZHAO Ot 305.1 TOBACCO USE DISORDER 03/30/2018 HARSH ZHAO Ot 401.9 HYPERTENSION NOS 03/30/2018 HARSH ZHAO Ot 414.00 CORON ATHEROSCLER NOS TYPE VESSEL, NATIV 03/30/2018 HARSH ZHAO Ot 272.4 HYPERLIPIDEMIA NEC/NOS 03/30/2018 HARSH ZHAO Ot 396.3 MITRAL/AORTIC JOSE INSUFF 03/30/2018 HARSH ZHAO Ot 397.0 TRICUSPID VALVE DISEASE 03/30/2018 HARSH ZHAO Ot 401.9 HYPERTENSION NOS 03/30/2018 HARSH ZHAO Ot 414.00 CORON ATHEROSCLER NOS TYPE VESSEL, NATIV 03/30/2018 DAOKTA SOLIZ DO Ot V76.12 OTH SCREEN MAMMO-MALIGN NEOPLASM OF TERRI 03/30/2018 HORTENCIA LIU, ABBEY John Ot I65.23 OCCLUSION AND STENOSIS OF BILATERAL [place] 03/30/2018 HARSH ZHAO Ot E78.2 MIXED HYPERLIPIDEMIA 03/30/2018 HARSH ZHAO Ot I10 ESSENTIAL (PRIMARY) HYPERTENSION 03/30/2018 HARSH ZHAO Ot I25.10 ATHSCL HEART DISEASE OF [place] CORONARY 03/30/2018 HARSH ZHAO Ot Z72.0 TOBACCO USE 03/30/2018 HARSH ZHAO Ot E78.2 MIXED HYPERLIPIDEMIA 03/30/2018 HARSH ZHAO Ot I10 ESSENTIAL (PRIMARY) HYPERTENSION 03/30/2018 HARSH ZHAO Ot I25.10 ATHSCL HEART DISEASE OF [place] CORONARY 03/30/2018 HARSH ZHAO Ot Z72.0 TOBACCO USE 03/30/2018 HARSH ZHAO Ot E78.2 MIXED HYPERLIPIDEMIA 03/30/2018 HARSH ZHAO Ot I10 ESSENTIAL (PRIMARY) HYPERTENSION 03/30/2018 HARSH ZHAO Ot I25.10 ATHSCL HEART DISEASE OF [place] CORONARY 03/30/2018 HARSH ZHAO Ot Z72.0 TOBACCO USE 03/30/2018 HARSH ZHAO Ot Z86.39 PERSONAL HISTORY OF ENDO, NUTRITIONAL AN 03/30/2018 DAKOTA SOLIZ DO Ot E04.9 NONTOXIC GOITER, UNSPECIFIED 03/30/2018 HEYDI LOPEZ, DAKOTA Watkins Ot M79.605 PAIN IN LEFT LEG 03/30/2018 HEYDI LOPEZ, DAKOTA Watkins Ot M25.562 PAIN IN LEFT KNEE 03/30/2018 HEYDI LOPEZ, DAKOTA Watkins Ot M79.662 PAIN IN LEFT LOWER LEG 03/30/2018 JEANNETTE LOPEZ ROMAINE Rafael Ot I70.203 UNSP ATHSCL [place] ARTERIES OF EXTREMITI 03/30/2018 JEANNETTE LOPEZ ROMAINE Rafael Ot N28.1 CYST OF KIDNEY, ACQUIRED 03/30/2018 DAKOTA SOLIZ DO Ot E04.1 NONTOXIC SINGLE THYROID NODULE 03/30/2018 DAKOTA SOLIZ DO Ot Z12.31 ENCNTR SCREEN MAMMOGRAM FOR MALIGNANT NE 03/30/2018 SASKIA JOYNER Ot I65.23 OCCLUSION AND STENOSIS OF BILATERAL TS[place] 03/30/2018 SASKIA JOYNER Ot Z95.5 PRESENCE OF CORONARY ANGIOPLASTY IMPLANT 03/30/2018 SASKIA JOYNER Ot I65.23 OCCLUSION AND STENOSIS OF BILATERAL TSANG 03/30/2018 HEYDI LOPEZ, DAKOTA Roland Ot E04.2 NONTOXIC MULTINODULAR GOITER 03/30/2018 LUCRECIA LIU, NEGAR Hall Ot Z01.818 ENCOUNTER FOR OTHER PREPROCEDURAL EXAMIN 03/30/2018 LUCRECIA LIU, NEGAR Hall Ot Z12.11 ENCOUNTER FOR SCREENING FOR MALIGNANT NE 03/30/2018 SASKIA JOYNER Ot I65.23 OCCLUSION AND STENOSIS OF BILATERAL TS[place] 03/30/2018 SASKIA JOYNER Ot Z95.5 PRESENCE OF CORONARY ANGIOPLASTY IMPLANT 03/30/2018 YVETTE GROVE Ot E78.00 PURE HYPERCHOLESTEROLEMIA, UNSPECIFIED 03/30/2018 YVETTE GROVE Ot F17.210 NICOTINE DEPENDENCE, CIGARETTES, UNCOMPL 03/30/2018 YVETTE GROVE Ot F41.9 ANXIETY DISORDER, UNSPECIFIED 03/30/2018 YVETTE GROVE Ot I10 ESSENTIAL (PRIMARY) HYPERTENSION 03/30/2018 YVETTE GROVE Ot I25.10 ATHSCL HEART DISEASE OF [place] CORONARY 03/30/2018 YVETTE GROVE Ot I25.2 OLD MYOCARDIAL INFARCTION 03/30/2018 YVETTE GROVE Ot S41.111A LACERATION W/O FOREIGN BODY OF RIGHT UPP 03/30/2018 YVETTE GROVE Ot S50.11XA CONTUSION OF RIGHT FOREARM, INITIAL ENCO 03/30/2018 YVETTE GROVE Ot W28.XXXA CONTACT WITH POWERED THERAPEUTIC RECREATION LEADER, INITIAL 03/30/2018 YVETTE GROVE Ot 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.82 VENDOR SPECIALIST (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 03/30/2018 YVETTE GROVE Ot Z86.39 PERSONAL HISTORY OF ENDO, NUTRITIONAL AN 03/30/2018 YVETTE GROVE Ot Z90.49 ACQUIRED ABSENCE OF OTHER SPECIFIED PART 03/30/2018 YVETTE GROVE Ot Z95.5 PRESENCE OF CORONARY ANGIOPLASTY IMPLANT 03/30/2018 YVETTE GROVE Ot Z98.51 TUBAL LIGATION STATUS 04/01/2018 YVETTE GROVE Ot E78.00 PURE HYPERCHOLESTEROLEMIA, UNSPECIFIED 04/01/2018 YVETTE GROVE Ot F17.210 NICOTINE DEPENDENCE, CIGARETTES, UNCOMPL 04/01/2018 YVETTE GROVE Ot F41.9 ANXIETY DISORDER, UNSPECIFIED 04/01/2018 YVETTE GROVE Ot I10 ESSENTIAL (PRIMARY) HYPERTENSION 04/01/2018 YVETTE GROVE Ot I25.10 ATHSCL HEART DISEASE OF [place] CORONARY 04/01/2018 YVETTE GROVE Ot I25.2 OLD MYOCARDIAL INFARCTION 04/01/2018 YVETTE GROVE Ot S41.111A LACERATION W/O FOREIGN BODY OF RIGHT UPP 04/01/2018 YVETTE GROVE Ot S50.11XA CONTUSION OF RIGHT FOREARM, INITIAL ENCO 04/01/2018 YVETTE GROVE Ot W28.XXXA CONTACT WITH POWERED THERAPEUTIC RECREATION LEADER, INITIAL 04/01/2018 YVETTE GROVE Ot Z79.82 HALF-WAY (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 04/01/2018 YVETTE GROVE Ot Z86.39 PERSONAL HISTORY OF ENDO, NUTRITIONAL AN 04/01/2018 YVETTE GROVE Ot Z90.49 ACQUIRED ABSENCE OF OTHER SPECIFIED PART 04/01/2018 YVETTE GROVE Ot Z95.5 PRESENCE OF CORONARY ANGIOPLASTY IMPLANT 04/01/2018 YVETTE GROVE Ot Z98.51 TUBAL LIGATION STATUS 04/05/2018 YVETTE GROVE Ot E78.00 PURE HYPERCHOLESTEROLEMIA, UNSPECIFIED 04/05/2018 YVETTE GROVE Ot F17.210 NICOTINE DEPENDENCE, CIGARETTES, UNCOMPL 04/05/2018 YVETTE GROVE Ot F41.9 ANXIETY DISORDER, UNSPECIFIED 04/05/2018 YVETTE GROVE Ot I10 ESSENTIAL (PRIMARY) HYPERTENSION 04/05/2018 YVETTE GROVE Ot I25.10 ATHSCL HEART DISEASE OF [place] CORONARY 04/05/2018 YVETTE GROVE Ot I25.2 OLD MYOCARDIAL INFARCTION 04/05/2018 YVETTE GROVE Ot S41.111A LACERATION W/O FOREIGN BODY OF RIGHT UPP 04/05/2018 YVETTE GROVE Ot S50.11XA CONTUSION OF RIGHT FOREARM, INITIAL ENCO 04/05/2018 YVETTE GROVE Ot W28.XXXA CONTACT WITH [employer], INITIAL 04/05/2018 YVETTE GROVE Ot Z79.82 VENDOR SPECIALIST (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 04/05/2018 YVETTE GROVE Ot Z86.39 PERSONAL HISTORY OF ENDO, NUTRITIONAL AN 04/05/2018 YVETTE GROVE Ot Z90.49 ACQUIRED ABSENCE OF OTHER SPECIFIED PART 04/05/2018 YVETTE GROVE Ot Z95.5 PRESENCE OF CORONARY ANGIOPLASTY IMPLANT 04/05/2018 YVETTE GROVE Ot Z98.51 TUBAL LIGATION STATUS Procedures Code Description Performed By Performed On 00.40 03/17/2012 00.46 03/17/2012 00.66 03/17/2012 36.07 03/17/2012 37.22 03/17/2012 88.53 03/17/2012 88.56 03/17/2012 Results There is no data. Encounters ACCT No. Visit Date/Time Discharge Status Pt. Type Provider Facility Loc./Unit Complaint [id number] 03/30/2018 13:47:00 03/30/2018 16:34:00 DIS Outpatient YVETTE GROVE [facility] ER RIGHT ARM LAC [id number] 03/23/2018 09:54:00 03/23/2018 13:15:00 DIS Outpatient NEGAR SINGER MD [facility] ENDO SCREENING [id number] 03/17/2018 05:40:00 03/17/2018 23:59:59 CLS Outpatient NEGAR SINGER MD [facility] PREOP COLONOSCOPY [id number] 02/20/2018 12:09:00 02/20/2018 23:59:59 CLS Outpatient DAKOTA SOLIZ DO [facility] RAD THYROID NODULE [id number] 01/07/2018 11:31:00 01/07/2018 23:59:59 CLS Outpatient SASKIA JOYNER [facility] RAD Z98.890 I65.23 [id number] 11/25/2017 10:47:00 01/02/2018 10:22:00 DIS Outpatient DAKOTA SOLIZ DO [facility] REHAB LBP WITH L RADICULOPATHY [id number] 11/20/2017 11:26:00 11/20/2017 23:59:59 CLS Outpatient DAKOTA SOLIZ DO [facility] RAD YEARLY MAMMO [id number] 07/17/2017 12:16:00 07/17/2017 23:59:59 CLS Outpatient DAKOTA SOLIZ DO [facility] RAD THYROID NODULE [id number] 04/08/2017 00:14:00 04/08/2017 23:59:59 CLS Preadmit DORITA SANTIAGO [facility] REHAB STENOSIS; LUMBAR RADICULOPATHY [id number] 03/21/2017 14:30:00 04/07/2017 00:01:00 DIS Outpatient DORITA SANTIAGO [facility] REHAB STENOSIS; LUMBAR RADICULOPATHY [id number] 01/01/2017 12:59:00 01/01/2017 23:59:59 CLS Outpatient ROMAINE MACHADO DO [facility] RAD CYST,CLAUDICATION [id number] 12/06/2016 10:35:00 12/06/2016 23:59:59 CLS Outpatient DAKOTA SOLIZ DO [facility] RAD PAIN LT KNEE LT LOWER LEG [id number] 12/03/2016 08:38:00 12/03/2016 23:59:59 CLS Outpatient DAKOTA SOLIZ DO [facility] RAD FOOT COLD,LT LEG PAIN [id number] 10/08/2016 13:25:00 10/08/2016 23:59:59 CLS Outpatient DAKOTA SOLIZ DO [facility] RAD LT THYROID SOLID MASS [id number] 09/19/2016 11:09:00 09/19/2016 23:59:59 CLS Outpatient HARSH ZHAO [facility] RAD HTN,HX OF THYROID NODULE,HLP [id number] 04/01/2016 07:42:00 04/01/2016 23:59:59 CLS Outpatient HARSH ZHAO [facility] CARD HTN,HLP, [id number] 03/28/2016 12:29:00 03/28/2016 23:59:59 CLS Outpatient HARSH ZHAO [facility] CARD HTN,HLP, CORONARY STENOSIS [id number] 03/19/2016 08:44:00 03/19/2016 23:59:59 CLS Outpatient ABBEY BURNETT MD [facility] RAD CAROTID STENOSIS BILATERAL [id number] 03/09/2015 08:02:00 03/09/2015 23:59:59 CLS Outpatient HEYDI DO DAKOTA Roland [facility] RAD SCREENING [id number] 07/27/2014 09:00:00 07/27/2014 18:00:00 DIS Outpatient ABBEY BURNETT MD [facility] CATH ABNORMAL STRESS, CAD, HTN,HLP,TOBACCOISM [id number] 07/25/2014 07:42:00 07/25/2014 23:59:59 CLS Outpatient HARSH ZHAO [facility] CARD CAD,HTN,HLP, TOBACCO USE [id number] 07/21/2014 08:00:00 07/21/2014 08:13:00 DIS Emergency CAR SALCEDO MD [facility] ER SUTURE REMOVAL [id number] 07/11/2014 11:17:00 07/11/2014 13:03:00 DIS Emergency YVETTE GROVE [facility] ER LEFT HAND LAC [id number] 07/05/2014 10:44:00 07/05/2014 23:59:59 CLS Outpatient HARSH ZHAO [facility] CARD CAD,HTN,HLP, TOBACCO USE [id number] 10/13/2013 07:24:00 10/13/2013 23:59:59 CLS Outpatient DAKOTA SOLIZ DO [facility] RAD ABN MAMMO [id number] 09/22/2013 09:00:00 09/22/2013 23:59:59 CLS Outpatient DAKOTA SOLIZ DO [facility] RAD SCREENING [id number] 05/15/2013 15:37:00 05/15/2013 17:58:00 DIS Emergency ODILON LOPEZ CRISTINA Angel [facility] ER HIGH BLOOD PRESSURE [id number] 04/07/2013 08:09:00 04/08/2013 09:30:00 DIS Outpatient ABBEY BURNETT MD [facility] CATH ABN STRESS,CAD,HTN,HLP, CHEST PAIN [id number] 03/29/2013 07:50:00 03/29/2013 23:59:59 CLS Outpatient ABBEY BURNETT MD [facility] RAD CAD,HTN,HLP [id number] 01/11/2019 09:00:00 PEN Preadmit SASKIA JOYNER SCHEDULE HANGER [facility] RAD I65.23 BILATERAL CAROTID ARTERY ATHEROSCLEROSIS [id number] 04/21/2018 12:00:00 PEN [facility]readmit [facility] [id number] 05/27/2012 07:18:00 Document Registration [id number] 04/01/2012 07:40:00 Document Registration [id number] 03/17/2012 11:47:00 Document Registration [id number] 05/13/2011 08:37:00 Document Registration [email or web address] 03/09/2015 08:02:59 ACT Document Registration
[2018-04-21] MEDS ORDERED: ceFAZolin 2 GM IV Premixed 50 ML ONE (11:18)
[2018-04-21 11:24] LABS: BUN/CREATININE RATIO 14; CALCIUM 9.3 MG/DL (8.5-10.1); CARBON DIOXIDE 25 MMOL/L (21-32); CHLORIDE 107 MMOL/L (98-107); CREATININE SERUM 0.81 MG/DL (0.60-1.30); GFR ESTIMATED > 60; GLUCOSE 90 MG/DL (70-105); POTASSIUM 4.2 MMOL/L (3.6-5.0); SODIUM 143 MMOL/L (135-145)
[2018-04-21] MEDS ORDERED: ceFAZolin 2 GM IV Premixed 50 ML IV ONE (11:30)
[2018-04-21 11:42] LABS: BAND NEUTROPHILS 0 %; BASOPHILS % (MANUAL) 3 %; EOSINOPHILS % (MANUAL) 3 %; LYMPHOCYTES % (MANUAL) 44 %; MONOCYTES % (MANUAL) 9 %; NEUTROPHILS % (MANUAL) 40 %; RBC MORPH NORMAL; REACTIVE LYMPHOCYTES 1 %
--- NOTE | 2018-04-21 12:12 | Progress Note-Pre Operative ---
Pre-Operative Progress Note H&P Reviewed The H&P was reviewed, patient examined and no changes noted. Date Seen by Provider: April 16, 2018 Time Seen by Provider: 11:00 Date H&P Reviewed: April 21, 2018 Time H&P Reviewed: 12:11 Pre-Operative Diagnosis: Follicular neoplasm of thyroid. Laceration of right forearm NEGAR SINGER MD April 21, 2018 12:12 pm
[2018-04-21] MEDS ORDERED: LIDOCAINE PF 2% 5 ML (XYLOCAINE) VIAL ONE (12:57)
[2018-04-21] MEDS ORDERED: SEVOFLURANE (ULTANE) 15 ML INHAL SOLN ONE ×8 (12:57→14:05)
[2018-04-21] MEDS ORDERED: proPOfol 200 MG/20 ML (DIPRIVAN) VIAL IV ONE (12:57)
[2018-04-21] MEDS ORDERED: DEXAMETHASONE 10 MG/ML (DECADRON) 1 ML VIAL ONE (12:58)
[2018-04-21] MEDS ORDERED: ONDANSETRON 4 MG/2 ML (SDV) Z0FRAN ONE (12:58)
[2018-04-21] MEDS ORDERED: LACTATED RINGERS 1,000 ML IV ONE (14:00)
[2018-04-21] MEDS ORDERED: LACTATED RINGERS 1,000 ML IV PRN (14:03)
--- NOTE | 2018-04-21 14:11 | Operative Report ---
Operative Report Date of Procedure/Surgery April 21, 2018 Surgeon (s) NEGAR SINGER MD Belt Sander (s): Deyanira Watkins (Med Student) Post-Operative Diagnosis Same Procedure Performed Total thyroidectomy Intraoperative nerve monitoring Debridement of right forearm Description of Procedure Anesthesia Type: General Estimated blood loss (mL): Minimal Specimen(s) collected/removed Both lobes of thyroid Description of the Procedure Indication for the procedures: This lady was found to have a 3.2 cm right thyroid nodule, confirmed to be a follicular neoplasm by needle biopsy. In addition, she had smaller nodules on the right lobe of the thyroid. It was therefore felt reasonable to offer total thyroidectomy. Intraoperative monitoring of the recurrent laryngeal nerve was also arranged. During the weeks preceding surgery, she developed a traumatic laceration of the right forearm resulting from a fall. A 2 cm segment of necrotic skin was found and therefore excising this at the end of thyroidectomy was felt to be reasonable. Informed consent was obtained after reviewing the operative details and complications of hematoma, transient hoarseness of voice and hypocalcemia. Description of the procedures: 1. Total thyroidectomy with intraoperative nerve monitoring: She was placed supine on the operative table and general anesthesia induced using an endotracheal tube. A gram of Ancef was administered intravenously as prophylaxis against wound infection. Sequential compression devices were placed around her legs, to minimize the risk of venous thrombosis. Her neck and upper chest were prepared and draped in the usual sterile manner. Pre-emptive analgesia was established using 0.5 percent Marcaine with epinephrine. A 3 cm transverse incision was made and platysma incised transversely. Flaps were raised, superiorly to the level of the thyroid cartilage and inferiorly to the sternal notch. Cervical fascia was incised vertically and the strap muscles were retracted laterally. I began the dissection on the left side. The lobe with a solid nodule and the cystic 1 came into view. It was retracted medially, leading to the identification of both parathyroid glands. These were preserved, along with their blood supply. Superior thyroid artery was controlled between 0 silk sutures, reinforced with a Ligaclip. Brandis of the inferior thyroid artery were controlled using a combination of ligation clips and Harmonic scalpel. Recurrent laryngeal nerve was found in its conventional position and kept out of harm's way by constant visual inspection and intermittent nursed ablation technique. These muscle was then divided and the left lobe sent off separately for histologic examination. On the right side, a similar dissection was performed. Recurrent nerve was found in its conventional position and protected in a similar fashion. We had the CHOCOLATE TEMPERER administer Valsalva maneuver, looking for any venous bleeding. There wasn't any. Gelfoam, soaked in thrombin solution was placed along the trachea- esophageal groove, to optimize hemostasis. Neck was then flexed, in preparation for closure. Cervical fascia was approximated using 3-0 Vicryl and platysma using the same material. Skin was closed using 4-0 Vicryl, in a subcuticular fashion. 2. Debridement of the right forearm: Right forearm was prepared and draped in the usual sterile manner. Necrotic skin about 2 cm in width was excised and the area irrigated with saline. A nonadherent dressing was then applied. She tolerated the procedures well, was extubated in the operating room and taken to the recovery room in a stable condition. Findings of the Procedure see op report Allergies and Home Medications Allergies Coded Allergies: No Known Drug Allergies (Unverified , 04/20/18) Home Medications Amlodipine Besylate 5 Mg Tablet, 5 MG PO DAILY, (Reported) Aspirin 81 Mg Tab.chew, 81 MG PO DAILY, (Reported) Benazepril HCl 40 Mg Tab, 40 MG PO DAILY, (Reported) Carvedilol 12.5 Mg Tablet, 12.5 MG PO BID, (Reported) Cholecalciferol (Vitamin D3) 400 Unit Tablet, 400 UNIT PO DAILY, (Reported) Clopidogrel Bisulfate 75 Mg Tablet, 75 MG PO DAILY, (Reported) Fenofibrate 54 Mg Tablet, 54 MG PO HS, (Reported) Folic Acid 0.4 Mg Tablet, 0.4 MG PO DAILY, (Reported) Gabapentin 800 Mg Tablet, 800 MG PO TID, (Reported) Garlic 1,000 Mg Capsule, 1,000 MG PO DAILY, (Reported) Hydrochlorothiazide 25 Mg Tablet, 25 MG PO DAILY, (Reported) [place] 3 Polyunsat Fatty Acids 1,000 Mg Cap, 1,000 MG PO TID, (Reported) Rosuvastatin Calcium 5 Mg Tablet, 5 MG PO DAILY, (Reported) Ubidecarenone 200 Mg Capsule, 200 MG PO DAILY, (Reported) Patient Home Medication List Home Medication List Reviewed: Yes NEGAR SINGER MD April 21, 2018 2:11 pm
[2018-04-21] MEDS ORDERED: ONDANSETRON 4 MG/2 ML (SDV) Z0FRAN IVP PRN ×2 (14:15→14:45)
[2018-04-21] MEDS ORDERED: fentaNYL INJECTION 100 MCG/2 ML AMP IVP PRN ×2 (14:15→14:45)
[2018-04-21] MEDS ORDERED: HYDROcodone/APAP 5 MG/325 MG (LORTAB) TAB PO PRN (14:15)
[2018-04-21] MEDS ORDERED: ACHD5005 PO (14:18)
[2018-04-21] MEDS ORDERED: LEVO100T7 PO (14:19)
--- NOTE | 2018-04-21 14:20 | Discharge Inst-Simple/Standard ---
Discharge Inst-Standard Discharge Medications New, Converted or Re-Newed RX: RX on Chart Patient Instructions/Follow Up Plan of Care/Instructions/FU: Dressings off in a.m. Follow-up in 3 weeks. To follow-up with my nurse twice a week for wound care Activity as Tolerated: Yes Discharge Diet: No Restrictions NEGAR SINGER MD April 21, 2018 2:20 pm
[2018-04-21] MEDS ORDERED: morphine INJ 4 MG/ML 1 ML (VIAL/SYRINGE) ONE (14:38)
[2018-04-21] MEDS ORDERED: morphine INJ 10 MG/ML 1ML (SYR OR VIAL) IVP PRN (14:45)
[2018-04-21 15:25] VITALS: BP 137/64
[2018-04-21] MEDS: LACTATED RINGERS 1,000 ML IV SCH (16:22)
[2018-04-21 19:10] VITALS: BP 147/64
[2018-04-21] MEDS ORDERED: HYDROcodone/APAP 7.5MG-325 MG/15 ML (LORTAB) UDC PO PRN (20:45)
[2018-04-21] MEDS: HYDROcodone/APAP 7.5MG-325 MG/15 ML (LORTAB) UDC PO PRN (21:06)
[2018-04-21] MEDS: CARVEDILOL 12.5 MG (COREG) TABLET PO SCH ×2 (21:07→22:32)
[2018-04-21 21:50] VITALS: BP 158/72
--- NOTE | 2018-04-21 23:05 | Progress Note ---
Subjective Date Seen by Provider: April 21, 2018 Time Seen by Provider: 23:00 Subjective/Events-last exam Called to evaluate patient. Having difficulty breathing, cant talk. Family having concern of neck swelling. Started around 9 pm when took lortab elixir and had coughing spell. Symptoms progressed and nurse notified me with her concerns. Objective Exam Vital Signs Date Time Temp Pulse Resp B/P (MAP) Pulse Ox O2 Delivery O2 Flow Rate FiO2 04/21/18 19:10 98.2 71 18 147/64 (91) 95 Room Air 04/21/18 15:25 97.5 66 16 137/64 (88) 95 Room Air 04/21/18 10:40 97.0 59 16 115/55 (75) 98 Room Air Capillary Refill : General Appearance: Moderate Distress HEENT: Other (significant neck swelling, taut and blood oozing from incision site. Significant bruising inferior to incision. ) Respiratory: Other (labored breathing, with increased effort) Cardiovascular: Tachycardia Gastrointestinal: non tender, soft Neurologic/Psychiatric: Alert (anxious, difficutly speaking) Skin: Normal Color (bruising inferior to neck incision) Lymphatic: No Adenopathy Results Lab Laboratory Tests 04/21/18 10:45: White Blood Count 4.6, Red Blood Count 4.45, Hemoglobin 13.5, Hematocrit 41, Mean Corpuscular Volume 92, Mean Corpuscular Hemoglobin 30, Mean Corpuscular Hemoglobin Concent 33, Red Cell Distribution Width 12.5, Platelet Count 277, Mean Platelet Volume 9.6, Neutrophils (%) (Auto) 44, Lymphocytes (%) (Auto) 39, Monocytes (%) (Auto) 10, Eosinophils (%) (Auto) 5, Basophils (%) (Auto) 3, Neutrophils # (Auto) 2.0, Lymphocytes # (Auto) 1.8, Monocytes # (Auto) 0.5, Eosinophils # (Auto) 0.2, Basophils # (Auto) 0.1, Neutrophils % (Manual) 40, Lymphocytes % (Manual) 44, Monocytes % (Manual) 9, Eosinophils % (Manual) 3, Basophils % (Manual) 3, Band Neutrophils 0, Reactive Lymphocytes 1, Blood Morphology Comment NORMAL, Sodium Level 143, Potassium Level 4.2, Chloride Level 107, Carbon Dioxide Level 25, Anion Gap 11, Blood Urea Nitrogen 11, Creatinine 0.81, Estimat Glomerular Filtration Rate > 60, BUN/Creatinine Ratio 14, Glucose Level 90, Calcium Level 9.3 Assessment/Plan Assessment/Plan Assessment/Plan s/p thyroidectomy airway compromise likely secondary to expanding hematoma discussed risk and benefits of neck exploration and all indicated procedures to or Clinical Quality Measures DVT/VTE Risk/Contraindication: Risk Factor Score Per Nursin RFS Level Per Nursing on Admit: 3=High GURDEEP LOZA DO April 21, 2018 23:05
[2018-04-21] MEDS ORDERED: KETAMINE HCL 100 MG/ML 5 ML VIAL ONE (23:07)
[2018-04-21] MEDS ORDERED: MIDAZOLAM 2 MG/2 ML (VERSED) VIAL ONE (23:07)
[2018-04-21] MEDS ORDERED: morphine INJ 10 MG/ML 1ML (SYR OR VIAL) ONE (23:40)
[2018-04-21] MEDS ORDERED: PROMETHAZINE INJ 25 MG/ML (PHENERGAN) AMP ONE (23:48)
[2018-04-22] VITALS (36 sets, daily range): BP systolic 89–172; BP diastolic 42–77
[2018-04-22] MEDS ORDERED: LACTATED RINGERS 1,000 ML IV PRN
[2018-04-22] MEDS ORDERED: SUCCINYLCHOLINE INJ 100 MG/5 ML SYR ONE (00:13)
[2018-04-22] MEDS ORDERED: SEVOFLURANE (ULTANE) 15 ML INHAL SOLN ONE (00:13)
[2018-04-22] MEDS ORDERED: proPOfol 200 MG/20 ML (DIPRIVAN) VIAL IV ONE (00:13)
[2018-04-22] MEDS ORDERED: DEXAMETHASONE 10 MG/ML (DECADRON) 1 ML VIAL ONE (00:13)
[2018-04-22] MEDS ORDERED: ROCURONIUM 10 MG/ML 5 ML SYRINGE IV ONE (00:13)
[2018-04-22] MEDS ORDERED: ONDANSETRON 4 MG/2 ML (SDV) Z0FRAN ONE (00:13)
[2018-04-22] MEDS ORDERED: ONDANSETRON 4 MG/2 ML (SDV) Z0FRAN IVP PRN (01:00)
[2018-04-22] MEDS ORDERED: MEPERIDINE (DEMEROL) INJ 50 MG/ML IVP PRN (01:00)
[2018-04-22] MEDS ORDERED: fentaNYL INJECTION 100 MCG/2 ML AMP IVP PRN (01:00)
--- NOTE | 2018-04-22 01:05 | Progress Note-Post Operative ---
Post-Operative Progess Note Surgeon (s)/Research Staff Member (s) Surgeon GURDEEP LOZA DO Research Staff Member: na Pre-Operative Diagnosis airway compromise secondary to expanding hematoma s/p thyroidectomy Post-Operative Diagnosis same Procedure & Operative Findings Date of Procedure 04/22/18 Procedure Performed/Findings exploration of neck with evacuation of hematoma and control of bleeding Anesthesia Type general Estimated Blood Loss Estimated blood loss (mL): 100ml (70 mL clot and 30 mL bright red blood) Specimens/Packing Specimens Removed na Packin fr kelvin drain GURDEEP LOZA DO April 22, 2018 01:05
[2018-04-22] MEDS: morphine INJ 10 MG/ML 1ML (SYR OR VIAL) IVP PRN ×2 (01:07→01:11)
[2018-04-22] MEDS ORDERED: PROPOFOL DRIP (ICU) 100 ML IV ONE (01:13)
[2018-04-22] MEDS: PROPOFOL DRIP (ICU) 100 ML IV SCH ×4 (01:20→22:15)
--- OUTSIDE RECORDS SUMMARY | 2018-04-22 02:17 | XMS REPORT | Continuity of Care Document ---
Author Author [facility] Organization [facility] Address Unknown Phone Unavailable Allergies Active Description Code Type Severity Reaction Onset Reported/Identified Relationship to Patient Clinical Status Yes No Known Drug Allergies [id number] Drug Allergy Unknown N/A 03/17/2018 Medications There [...] SITE,INITIA 03/20/2012 Ot 414.01 CORONARY ATHEROSCLEROSIS OF [place] CORON 03/20/2012 Ot 428.0 CONGESTIVE HEART FAILURE NOS 03/20/2012 Ot 428.21 ACUTE SYSTOLIC HEART FAILURE 03/20/2012 Ot V17.49 FAMILY HISTORY OF OTHER CARDIOVASCULAR D 04/02/2012 Ot 272.4 HYPERLIPIDEMIA NEC/NOS 04/02/2012 Ot 305.1 TOBACCO USE DISORDER 04/02/2012 Ot 401.9 HYPERTENSION NOS 04/02/2012 Ot 412 OLD MYOCARDIAL INFARCT 04/02/2012 Ot 414.01 CORONARY ATHEROSCLEROSIS OF [place] CORON 04/02/2012 Ot V45.82 PERCUTANEOUS TRANSLUM CORON [...] BURNETT MD Ot 414.01 CORONARY ATHEROSCLEROSIS OF [place] CORON 04/08/2013 ABBEY BURNETT MD Ot 427.5 [...] BURNETT MD Ot 414.01 CORONARY ATHEROSCLEROSIS OF [place] CORON 07/27/2014 ABBEY BURNETT MD Ot 786.50 [...] ZHAO Ot I25.10 ATHSCL HEART DISEASE OF [place] CORONARY 03/29/2016 HARSH ZHAO Ot Z72.0 TOBACCO USE 04/01/2016 HARSH ZHAO Ot E78.2 MIXED HYPERLIPIDEMIA 04/01/2016 HARSH ZHAO Ot I10 ESSENTIAL (PRIMARY) HYPERTENSION 04/01/2016 HARSH ZHAO Ot I25.10 ATHSCL HEART DISEASE OF [place] CORONARY 04/01/2016 HARSH ZHAO Ot Z72.0 TOBACCO USE 04/02/2016 HARSH ZHAO Ot E78.2 MIXED HYPERLIPIDEMIA 04/02/2016 HARSH ZHAO Ot I10 ESSENTIAL (PRIMARY) HYPERTENSION 04/02/2016 HARSH ZHAO Ot I25.10 ATHSCL HEART DISEASE OF [place] CORONARY 04/02/2016 HARSH ZHAO Ot Z72.0 TOBACCO USE 04/03/2016 HARSH ZHAO Ot E78.2 MIXED HYPERLIPIDEMIA 04/03/2016 HARSH ZHAO Ot I10 ESSENTIAL (PRIMARY) HYPERTENSION 04/03/2016 HARSH ZHAO Ot I25.10 ATHSCL HEART DISEASE OF [place] CORONARY 04/03/2016 HARSH ZHAO Ot Z72.0 TOBACCO USE 04/07/2016 HARSH ZHAO Ot E78.2 MIXED HYPERLIPIDEMIA 04/07/2016 HARSH ZHAO K Ot I10 ESSENTIAL (PRIMARY) HYPERTENSION 04/07/2016 HARSH ZHAO Ot I25.10 ATHSCL HEART DISEASE OF [place] CORONARY 04/07/2016 HARSH ZHAO Ot Z72.0 TOBACCO USE 04/09/2016 HORTENCIA LIU, ABBEY John Ot I65.23 OCCLUSION AND STENOSIS OF BILATERAL TSANG 04/18/2016 HARSH ZHAO Ot E78.2 MIXED HYPERLIPIDEMIA 04/18/2016 HARSH ZHAO Ot I10 ESSENTIAL (PRIMARY) HYPERTENSION 04/18/2016 HARSH ZHAO Ot I25.10 ATHSCL HEART DISEASE OF [place] CORONARY 04/18/2016 HARSH ZHAO Ot Z72.0 TOBACCO USE 04/23/2016 HARSH ZHAO Ot E78.2 MIXED HYPERLIPIDEMIA 04/23/2016 HARSH ZHAO Ot I10 ESSENTIAL (PRIMARY) HYPERTENSION 04/23/2016 HARSH ZHAO Ot I25.10 ATHSCL HEART DISEASE OF [place] CORONARY 04/23/2016 HARSH ZHAO Ot Z72.0 TOBACCO [...] ZHAO Ot I25.10 ATHSCL HEART DISEASE OF [place] CORONARY 09/19/2016 HARSH ZHAO Ot Z72.0 TOBACCO USE 09/19/2016 HARSH ZHAO Ot E78.2 MIXED HYPERLIPIDEMIA 09/19/2016 HARSH ZHAO Ot I10 ESSENTIAL (PRIMARY) HYPERTENSION 09/19/2016 HARSH ZHAO Ot I25.10 ATHSCL HEART DISEASE OF [place] CORONARY 09/19/2016 HARSH ZHAO Ot Z72.0 TOBACCO USE 09/19/2016 HARSH ZHAO Ot E78.2 MIXED HYPERLIPIDEMIA 09/19/2016 HARSH ZHAO Ot I10 ESSENTIAL (PRIMARY) HYPERTENSION 09/19/2016 HARSH ZHAO Ot I25.10 ATHSCL HEART DISEASE OF [place] CORONARY 09/19/2016 HARSH ZHAO Ot Z72.0 TOBACCO USE 09/19/2016 HARSH ZHAO Ot Z86.39 PERSONAL HISTORY OF ENDO, NUTRITIONAL AN 09/24/2016 LAMONT ROSEN, HARSH Ortiz Ot E78.2 MIXED HYPERLIPIDEMIA 09/24/2016 HARSH ZHAO Ot I10 ESSENTIAL (PRIMARY) HYPERTENSION 09/24/2016 HARSH ZHAO Ot I25.10 ATHSCL HEART DISEASE OF [place] CORONARY 09/24/2016 HARSH ZHAO Ot Z72.0 TOBACCO USE 09/24/2016 HARSH ZHAO Ot Z86.39 PERSONAL HISTORY OF ENDO, NUTRITIONAL AN 10/09/2016 GELLENDER DO, DAKOTA Watkins Ot E04.9 NONTOXIC GOITER, UNSPECIFIED 10/09/2016 GELLENDER DO, DAKOTA Watkins Ot E04.9 NONTOXIC GOITER, UNSPECIFIED 10/10/2016 HARSH ZHAO Ot E78.2 MIXED HYPERLIPIDEMIA 10/10/2016 HARSH ZHAO Ot I10 ESSENTIAL (PRIMARY) HYPERTENSION 10/10/2016 HARSH ZHAO Ot I25.10 ATHSCL HEART DISEASE OF [place] CORONARY 10/10/2016 HARSH ZHAO Ot Z72.0 TOBACCO [...] LEG 01/02/2017 ROMAINE MACHADO DO Ot I70.203 [facility] ATHHIL [place] [facility] 01/02/2017 ROMAINE MACHADO DO Ot N28.1 CYST OF KIDNEY, ACQUIRED 01/02/2017 ROMAINE MACHADO DO Ot I70.203 [facility] ATHHIL [place] [facility] 01/02/2017 ROMAINE MACHADO DO Ot N28.1 CYST OF KIDNEY, ACQUIRED 01/02/2017 DAKOTA SOLIZ DO Ot M79.605 PAIN IN LEFT LEG 01/23/2017 ROMAINE MACHADO DO Ot I70.203 [facility] ATHHIL [place] [facility] 01/23/2017 [...] ZHAO Ot I25.10 ATHSCL HEART DISEASE OF [place] CORONARY 12/29/2017 HARSH ZHAO Ot Z72.0 TOBACCO USE 12/29/2017 HARSH ZHAO Ot E78.2 MIXED HYPERLIPIDEMIA 12/29/2017 HARSH ZHAO Ot I10 ESSENTIAL (PRIMARY) HYPERTENSION 12/29/2017 HARSH ZHAO Ot I25.10 ATHSCL HEART DISEASE OF [place] CORONARY 12/29/2017 HARSH ZHAO Ot Z72.0 TOBACCO USE 12/29/2017 HARSH ZHAO Ot E78.2 MIXED HYPERLIPIDEMIA 12/29/2017 HARSH ZHAO Ot I10 ESSENTIAL (PRIMARY) HYPERTENSION 12/29/2017 HARSH ZHAO Ot I25.10 ATHSCL HEART DISEASE OF [place] CORONARY 12/29/2017 HARSH ZHAO Ot Z72.0 TOBACCO [...] ROMAINE MACHADO DO Ot I70.203 UNSP ATHSCL [place] [facility] EXTREMITI 12/29/2017 ROMAINE MACHADO DO [...] MD Ot I25.10 ATHSCL HEART DISEASE OF [place] CORONARY 03/23/2018 NEGAR SINGER MD Ot I25.2 OLD MYOCARDIAL INFARCTION 03/23/2018 NEGAR SINGER MD Ot Z12.11 ENCOUNTER FOR SCREENING FOR MALIGNANT NE 03/23/2018 NEGAR SINGER MD Ot Z79.899 OTHER MCC (CURRENT) DRUG THERAPY 03/23/2018 NEGAR SINGER MD Ot Z83.71 FAMILY HISTORY OF COLONIC POLYPS 03/25/2018 NEGAR SINGER MD Ot E04.1 NONTOXIC SINGLE THYROID NODULE 03/25/2018 NEGAR SINGER MD Ot E78.00 PURE HYPERCHOLESTEROLEMIA, UNSPECIFIED 03/25/2018 NEGAR SINGER MD Ot F41.9 ANXIETY DISORDER, UNSPECIFIED 03/25/2018 NEGAR SINGER MD M Ot I10 ESSENTIAL (PRIMARY) HYPERTENSION 03/25/2018 NEGAR SINGER MD Ot I25.10 ATHSCL HEART DISEASE OF [place] CORONARY 03/25/2018 NEGAR SINGER MD Ot I25.2 OLD MYOCARDIAL INFARCTION 03/25/2018 NEGAR SINGER MD Ot Z12.11 ENCOUNTER FOR SCREENING FOR MALIGNANT NE 03/25/2018 LUCRECIA LIU, NEGAR Hall Ot Z79.899 OTHER SITE SUPERINTENDENT (CURRENT) DRUG THERAPY 03/25/2018 LUCRECIA LIU, NEGAR aHll Ot Z83.71 FAMILY HISTORY OF COLONIC POLYPS 03/29/2018 LUCRECIA LIU, NEGAR Hall Ot E04.1 NONTOXIC SINGLE THYROID NODULE 03/29/2018 LUCRECIA LIU, NEGAR Hall Ot E78.00 PURE HYPERCHOLESTEROLEMIA, UNSPECIFIED 03/29/2018 NEGAR SINGER MD Ot F41.9 ANXIETY DISORDER, UNSPECIFIED 03/29/2018 NEGAR SINGER MD Ot I10 ESSENTIAL (PRIMARY) HYPERTENSION 03/29/2018 NEGAR SINGER MD Ot I25.10 ATHSCL HEART DISEASE OF [place] CORONARY 03/29/2018 NEGAR SINGER MD Ot I25.2 OLD MYOCARDIAL INFARCTION 03/29/2018 NEGAR SINGER MD Ot Z12.11 ENCOUNTER FOR SCREENING FOR MALIGNANT NE 03/29/2018 LUCRECIA LIU, NEGAR Hall Ot Z79.899 OTHER MCC (CURRENT) DRUG THERAPY 03/29/2018 NEGAR SINGER MD [...] VESSEL, NATIV 03/30/2018 DAKOTA SOLIZ DO Ot V76.12 OTH SCREEN MAMMO-MALIGN NEOPLASM OF [place] 03/30/2018 HORTENCIA LIU, ABBEY John Ot I65.23 OCCLUSION AND STENOSIS OF BILATERAL TSANG 03/30/2018 HARSH ZHAO Ot E78.2 MIXED HYPERLIPIDEMIA 03/30/2018 HARSH ZHAO Ot I10 ESSENTIAL (PRIMARY) HYPERTENSION 03/30/2018 HARSH ZHAO Ot I25.10 ATHSCL HEART DISEASE OF [place] CORONARY 03/30/2018 HARSH ZHAO Ot Z72.0 TOBACCO USE 03/30/2018 HARSH ZHAO Ot E78.2 MIXED HYPERLIPIDEMIA 03/30/2018 HARSH ZHAO Ot I10 ESSENTIAL (PRIMARY) HYPERTENSION 03/30/2018 HARSH ZHAO Ot I25.10 ATHSCL HEART DISEASE OF [place] CORONARY 03/30/2018 HARSH ZHAO Ot Z72.0 TOBACCO USE 03/30/2018 HARSH ZHAO Ot E78.2 MIXED HYPERLIPIDEMIA 03/30/2018 HARSH ZHAO Ot I10 ESSENTIAL (PRIMARY) HYPERTENSION 03/30/2018 HARSH ZHAO Ot I25.10 ATHSCL HEART DISEASE OF [place] CORONARY 03/30/2018 HARSH ZHAO Ot Z72.0 TOBACCO [...] LOPEZ ROMAINE Rafael Ot I70.203 UNSP ATHSCL [place] ARTERIES OF EXTREMITI 03/30/2018 JEANNETTE LOPEZ ROMAINE [...] GROVE Ot I25.10 ATHSCL HEART DISEASE OF [place] CORONARY 03/30/2018 YVETTE GROVE Ot I25.2 OLD MYOCARDIAL INFARCTION 03/30/2018 YVETTE GROVE Ot S41.111A LACERATION W/O FOREIGN BODY OF RIGHT UPP 03/30/2018 YVETTE GROVE Ot S50.11XA CONTUSION OF RIGHT FOREARM, INITIAL ENCO 03/30/2018 YVETTE GROVE Ot W28.XXXA CONTACT WITH P[employer]IL[employer] MAN, INITIAL 03/30/2018 YVETTE GROVE Ot Z79.82 SITE SUPERINTENDENT (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 03/30/2018 YVETTE GROVE Ot Z86.39 PERSONAL HISTORY OF ENDO, NUTRITIONAL AN 03/30/2018 YVETTE GROVE Ot Z90.49 ACQUIRED ABSENCE OF OTHER SPECIFIED PART 03/30/2018 YVETTE GROVE Ot Z95.5 PRESENCE OF CORONARY ANGIOPLASTY IMPLANT 03/30/2018 YVETTE GROVE Ot Z98.51 TUBAL LIGATION STATUS 04/01/2018 YVETTE GROVE Ot E78.00 PURE HYPERCHOLESTEROLEMIA, UNSPECIFIED 04/01/2018 YVETTE GROVE Ot F17.210 NICOTINE DEPENDENCE, CIGARETTES, UNCOMPL 04/01/2018 YVETTE GRVOE Ot F41.9 ANXIETY DISORDER, UNSPECIFIED 04/01/2018 YVETTE GROVE Ot I10 ESSENTIAL (PRIMARY) HYPERTENSION 04/01/2018 YVETTE GROVE Ot I25.10 ATHSCL HEART DISEASE OF [place] CORONARY 04/01/2018 YVETTE GROVE Ot I25.2 OLD MYOCARDIAL INFARCTION 04/01/2018 YVETTE GROVE Ot S41.111A LACERATION W/O FOREIGN BODY OF RIGHT UPP 04/01/2018 YVETTE GROVE Ot S50.11XA CONTUSION OF RIGHT FOREARM, INITIAL ENCO 04/01/2018 YVETTE GROVE Ot W28.XXXA CONTACT WITH POWER[employer] TA[employer] MAN, INITIAL 04/01/2018 YVETTE GROVE Ot Z79.82 MCC (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 04/01/2018 YVETTE GROVE [...] GROVE Ot I25.10 ATHSCL HEART DISEASE OF [place] CORONARY 04/05/2018 YVETTE GROVE Ot I25.2 OLD MYOCARDIAL INFARCTION 04/05/2018 YVETTE GROVE Ot S41.111A LACERATION W/O FOREIGN BODY OF RIGHT UPP 04/05/2018 YVETTE GROVE Ot S50.11XA CONTUSION OF RIGHT FOREARM, INITIAL ENCO 04/05/2018 YVETTE GROVE Ot W28.XXXA CONTACT WITH [employer], INITIAL 04/05/2018 YVETTE GROVE Ot Z79.82 SITE SUPERINTENDENT (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 04/05/2018 YVETTE GROVE [...] Status Pt. Type Provider Facility Loc./Unit Complaint [id number] 03/30/2018 13:47:00 03/30/2018 16:34:00 DIS Outpatient YVETTE GROVE [facility] ER RIGHT ARM LAC [id number] 03/23/2018 09:54:00 03/23/2018 13:15:00 DIS Outpatient NEGAR SINGER MD [facility] ENDO SCREENING [id number] 03/17/2018 05:40:00 03/17/2018 23:59:59 CLS Outpatient NEGAR SINGER MD [facility] PREOP COLONOSCOPY [id number] 02/20/2018 12:09:00 02/20/2018 23:59:59 CLS Outpatient DAKOTA SOLIZ DO [facility] RAD THYROID NODULE [id number] 01/07/2018 11:31:00 01/07/2018 23:59:59 CLS Outpatient SASKIA JOYNER [facility] RAD Z98.890 I65.23 [id number] 11/25/2017 10:47:00 01/02/2018 10:22:00 DIS Outpatient DAKOTA SOLIZ DO [facility] REHAB LBP WITH L RADICULOPATHY [id number] 11/20/2017 11:26:00 11/20/2017 23:59:59 CLS Outpatient DAKOTA SOLIZ DO [facility] RAD YEARLY MAMMO [id number] 07/17/2017 12:16:00 07/17/2017 23:59:59 CLS Outpatient DAKOTA SOLIZ DO [facility] RAD THYROID NODULE [id number] 04/08/2017 00:14:00 04/08/2017 23:59:59 CLS Preadmit DORITA SANTIAGO [facility] REHAB STENOSIS; LUMBAR RADICULOPATHY [id number] 03/21/2017 14:30:00 04/07/2017 00:01:00 DIS Outpatient DORITA SANTIAGO [facility] REHAB STENOSIS; LUMBAR RADICULOPATHY [id number] 01/01/2017 12:59:00 01/01/2017 23:59:59 CLS Outpatient ROMAINE MACHADO DO [facility] RAD CYST,CLAUDICATION [id number] 12/06/2016 10:35:00 12/06/2016 23:59:59 CLS Outpatient DAKOTA SOLIZ DO [facility] RAD PAIN LT KNEE LT LOWER LEG [id number] 12/03/2016 08:38:00 12/03/2016 23:59:59 CLS Outpatient DAKOTA SOLIZ DO [facility] RAD FOOT COLD,LT LEG PAIN [id number] 10/08/2016 13:25:00 10/08/2016 23:59:59 CLS Outpatient DAKOTA SOLIZ DO [facility] RAD LT THYROID SOLID MASS [id number] 09/19/2016 11:09:00 09/19/2016 23:59:59 CLS Outpatient HARSH ZHAO [facility] RAD HTN,HX OF THYROID NODULE,HLP [id number] 04/01/2016 07:42:00 04/01/2016 23:59:59 CLS Outpatient HARSH ZHAO [facility] CARD HTN,HLP, [id number] 03/28/2016 12:29:00 03/28/2016 23:59:59 CLS Outpatient HARSH ZHAO [facility] CARD HTN,HLP, CORONARY STENOSIS [id number] 03/19/2016 08:44:00 03/19/2016 23:59:59 CLS Outpatient ABBEY BURNETT MD [facility] RAD CAROTID STENOSIS BILATERAL [id number] 03/09/2015 08:02:00 03/09/2015 23:59:59 CLS Outpatient HEYDI DO DAKOTA Roland [facility] RAD SCREENING [id number] 07/27/2014 09:00:00 07/27/2014 18:00:00 DIS Outpatient ABBEY BURNETT MD [facility] CATH ABNORMAL STRESS, CAD, HTN,HLP,TOBACCOISM [id number] 07/25/2014 07:42:00 07/25/2014 23:59:59 CLS Outpatient HARSH ZHAO [facility] CARD CAD,HTN,HLP, TOBACCO USE [id number] 07/21/2014 08:00:00 07/21/2014 08:13:00 DIS Emergency CAR SALCEDO MD [facility] ER SUTURE REMOVAL [id number] 07/11/2014 11:17:00 07/11/2014 13:03:00 DIS Emergency YVETTE GROVE [facility] ER LEFT HAND LAC [id number] 07/05/2014 10:44:00 07/05/2014 23:59:59 CLS Outpatient HARSH ZHAO [facility] CARD CAD,HTN,HLP, TOBACCO USE [id number] 10/13/2013 07:24:00 10/13/2013 23:59:59 CLS Outpatient DAKOTA SOLIZ DO [facility] RAD ABN MAMMO [id number] 09/22/2013 09:00:00 09/22/2013 23:59:59 CLS Outpatient DAKOTA SOLIZ DO [facility] RAD SCREENING [id number] 05/15/2013 15:37:00 05/15/2013 17:58:00 DIS Emergency ODILON LOPEZ CRISTINA Angel [facility] ER HIGH BLOOD PRESSURE [id number] 04/07/2013 08:09:00 04/08/2013 09:30:00 DIS Outpatient ABBEY BURNETT MD [facility] CATH ABN STRESS,CAD,HTN,HLP, CHEST PAIN [id number] 03/29/2013 07:50:00 03/29/2013 23:59:59 CLS Outpatient ABBEY BURNETT MD [facility] RAD CAD,HTN,HLP [id number] 01/11/2019 09:00:00 PEN Preadmit SASKIA JOYNER [employer] [facility] RAD I65.23 BILATERAL CAROTID ARTERY ATHEROSCLEROSIS [id number] 04/21/2018 12:00:00 PEN Preadmit [facility],HEMATOMA [id number] 05/27/2012 07:18:00 Document Registration [id number] 04/01/2012 07:40:00 Document Registration [id number] 03/17/2012 11:47:00 Document Registration [id number] 05/13/2011 08:37:00 Document Registration [id number] 03/09/2015 08:02:59 ACT Document Registration
[2018-04-22 02:18] LABS: ABG BASE EXCESS 0.2 MMOL/L (-2.5-2.5); ABG OXYGEN SATURATION 100 % (94-100); ABG PCO2 37 MMHG (35-45); ABG PH 7.43 (7.37-7.43); ABG PO2 401 MMHG (79-93); ABG TCO2 25.5 MMOL/L (21.0-31.0)
[2018-04-22 02:19] LABS: BASOPHILS % (AUTO) 0 % (0-10); EOSINOPHILS % (AUTO) 0 % (0-10); HEMATOCRIT 39 % (35-52); HEMOGLOBIN 13.1 G/DL (11.5-16.0); LYMPHOCYTES # (AUTO) 0.9 X 10^3 (1.0-4.0); LYMPHOCYTES % (AUTO) 5 % (12-44); MEAN CORPUSCULAR HEMOGLOBIN 31 PG (25-34); MEAN CORPUSCULAR HGB CONC 34 G/DL (32-36); MEAN CORPUSCULAR VOLUME 92 FL (80-99); MEAN PLATELET VOLUME 9.9 FL (7.4-10.4); MONOCYTES # (AUTO) 0.9 X 10^3 (0.0-1.0); MONOCYTES % (AUTO) 5 % (0-12); NEUTROPHILS # (AUTO) 15.5 X 10^3 (1.8-7.8); NEUTROPHILS % (AUTO) 89 % (42-75); PLATELET COUNT 138 10^3/uL (130-400); RED BLOOD COUNT 4.21 10^6/uL (4.35-5.85); RED CELL DISTRIBUTION WIDTH 12.1 % (10.0-14.5); WHITE BLOOD COUNT 17.3 10^3/uL (4.3-11.0)
[2018-04-22 02:20] LABS: ALLENS TEST YES-POS; INSPIRED O2 100%; PATIENT TEMP 96.9; VENTILATOR YES
[2018-04-22 02:27] LABS: PROTHROMBIN TIME PATIENT 13.7 SEC (12.2-14.7)
[2018-04-22] MEDS: LACTATED RINGERS 1,000 ML IV SCH ×3 (02:33→20:59)
[2018-04-22 02:36] LABS: ALANINE AMINOTRANSFERASE 13 U/L (0-55); ALBUMIN 3.9 GM/DL (3.2-4.5); ALKALINE PHOSPHATASE 54 U/L (40-136); BILIRUBIN,TOTAL 0.5 MG/DL (0.1-1.0); BUN/CREATININE RATIO 16; CALCIUM 8.4 MG/DL (8.5-10.1); CARBON DIOXIDE 20 MMOL/L (21-32); CHLORIDE 106 MMOL/L (98-107); CREATININE SERUM 0.96 MG/DL (0.60-1.30); GFR ESTIMATED 57; GLUCOSE 222 MG/DL (70-105); MAGNESIUM 1.8 MG/DL (1.8-2.4); SODIUM 140 MMOL/L (135-145); TOTAL PROTEIN 6.4 GM/DL (6.4-8.2)
[2018-04-22] MEDS ORDERED: PANTOPRAZOLE 40 MG/10 ML (PROTONIX) VIAL IV ONE (02:45)
[2018-04-22] MEDS ORDERED: CHLORHEXIDINE 0.12% SOLN 15 ML (PERIDEX) UDC PO PRN (02:45)
[2018-04-22] MEDS: NS IV 1000 ML 1,000 ML IV SCH ×2 (03:10→12:04)
[2018-04-22] MEDS ORDERED: NS IV 1000 ML 1,000 ML IV SCH ×2 (04:15→05:45)
[2018-04-22] MEDS: MAGNESIUM 1 GM/100 ML IVPB 100 ML IV SCH (05:14)
[2018-04-22] MEDS: KCL 20 MEQ TAB (K-DUR) PO SCH (05:14)
[2018-04-22] MEDS: POTASSIUM CL 10MEQ/50ML IVPB 50 ML IV SCH (05:14)
[2018-04-22] MEDS ORDERED: LEVOTHYROXINE 100 MCG (LEVOTHROID) TAB PO NR (06:00)
--- NOTE | 2018-04-22 06:19 | Pulmonary Consultation ---
History of Present Illness History of Present Illness Date of Consultation 04/22/18 06:09 Time Seen by Provider: 06:09 Date of Admission History of Present Illness 72 yo presented for elective thyroidectomy. Surgery went well however she then developed a large hematoma compromising airway. She is now s/p emergent surgery with evacuation of hematoma and placement of drain. She is intubated with a size 7.[address] Pt is resting comfortably on vent. Daughter at bedside. All questions answered. Unable to obtain ROS. I am consulted for CC management. Allergies and Home Medications Allergies Coded Allergies: No Known Drug Allergies (Unverified , 04/20/18) Home Medications Amlodipine Besylate 5 Mg Tablet, 5 MG PO DAILY, (Reported) Aspirin 81 Mg Tab.chew, 81 MG PO DAILY, (Reported) Benazepril HCl 40 Mg Tab, 40 MG PO DAILY, (Reported) Carvedilol 12.5 Mg Tablet, 12.5 MG PO BID, (Reported) Cholecalciferol (Vitamin D3) 400 Unit Tablet, 400 UNIT PO DAILY, (Reported) Clopidogrel Bisulfate 75 Mg Tablet, 75 MG PO DAILY, (Reported) Fenofibrate 54 Mg Tablet, 54 MG PO HS, (Reported) Folic Acid 0.4 Mg Tablet, 0.4 MG PO DAILY, (Reported) Gabapentin 800 Mg Tablet, 800 MG PO TID, (Reported) Garlic 1,000 Mg Capsule, 1,000 MG PO DAILY, (Reported) Hydrochlorothiazide 25 Mg Tablet, 25 MG PO DAILY, (Reported) Hydrocodone Bit/Acetaminophen 1 Tab Tab, 1-2 TAB PO 4-6HR PRN for PAIN Prescribed by: NEGAR SINGER on 04/21/18 1418 Levothyroxine Sodium 100 Mcg Tablet, 100 MCG PO DAILY Prescribed by: NEGAR SINGER on 04/21/18 1419 [place] 3 Polyunsat Fatty Acids 1,000 Mg Cap, 1,000 MG PO TID, (Reported) Rosuvastatin Calcium 5 Mg Tablet, 5 MG PO DAILY, (Reported) Ubidecarenone 200 Mg Capsule, 200 MG PO DAILY, (Reported) Past Tuvulme-Esqqqw-Gkctol Hx Patient Social History Alcohol Use: Denies Use Recreational Drug Use: No Smoking Status: Current Everyday Smoker Type Used: Cigarettes Recent Foreign Travel: No Contact w/Someone Who Travel: No Recent Infectious Disease Expo: No Recent Hopitalizations: No Physical Abuse: No Sexual Abuse: No Mistreated: No Fear: No Immunizations Up To Date Tetanus Booster (TDap): Less than 5yrs Date of Pneumonia Vaccine: Sep 11, 2015 Date of Influenza Vaccine: Sep 15, 2017 Seasonal Allergies Seasonal Allergies: No Past Medical History Surgeries: Yes (R CAROTID STENT, L KNEE) Appendectomy, Coronary Stent, Orthopedic, Tubal Ligation Respiratory: No Cardiac: Yes Coronary Artery Disease, Heart Attack, High Cholesterol, Hypertension Neurological: No Reproductive Disorders: No Sexually Transmitted Disease: No HIV/AIDS: No Genitourinary: No Gastrointestinal: No Musculoskeletal: Yes Degenerate Disk Disease, Arthritis Endocrine: Yes (THYROID ISSUES) Loss of Vision: Bilateral Hearing Impairment: Denies Cancer: Yes Skin Psychosocial: Yes Anxiety Integumentary: No Blood Disorders: No Adverse Reaction/Blood Tranf: No (N/A) Family Medical History Respiratory disorder No Pertinent Family Hx Review of Systems Time Seen by Provider: 06:22 Exam Exam Vital Signs Date Time Temp Pulse Resp B/P (MAP) Pulse Ox O2 Delivery O2 Flow Rate FiO2 04/22/18 06:00 61 12 138/60 (86) 100 Mechanical Ventilator 50.00 04/22/18 05:00 55 12 89/44 (59) 100 Mechanical Ventilator 50.00 04/22/18 04:20 Mechanical Ventilator 50.00 04/22/18 04:13 58 12 100 70 04/22/18 04:00 58 12 122/54 (76) 100 Mechanical Ventilator 70.00 04/22/18 03:03 96.9 Mechanical Ventilator 70.00 04/22/18 03:00 53 11 106/52 (70) 100 Mechanical Ventilator 80.00 04/22/18 02:10 58 12 100 80 04/22/18 02:00 58 12 106/57 (73) 100 Mechanical Ventilator 80.00 04/22/18 01:40 68 04/22/18 01:40 61 11 172/74 (106) 100 Mechanical Ventilator 80.00 04/22/18 01:20 97.6 88 20 158/72 97 Nasal Cannula 2.00 04/22/18 00:46 62 12 100 100 04/21/18 23:08 97.6 88 20 97 Nasal Cannula 2.00 04/21/18 22:58 97 Nasal Cannula 2.00 04/21/18 21:50 96 158/72 (100) 98 04/21/18 19:10 98.2 71 18 147/64 (91) 95 Room Air 04/21/18 15:25 97.5 66 16 137/64 (88) 95 Room Air 04/21/18 10:40 97.0 59 16 115/55 (75) 98 Room Air I & O 04/22/18 07:00 Intake Total 1270 ml Output Total 1040 ml Balance 230 ml General Appearance: No Apparent Distress (sedated on vent) HEENT: Other (neck is bandaged and clean. 7.[address].) Respiratory: Lungs Clear, No Accessory Muscle Use, No Respiratory Distress Cardiovascular: Tachycardia Gastrointestinal: non tender, soft Neurologic/Psychiatric: Alert Skin: Normal Color (bruising inferior to neck incision) Lymphatic: No Adenopathy Results Lab Laboratory Tests 04/21/18 10:45 04/22/18 02:05 Assessment/Plan Assessment/Plan S/p Thyroidectomy with developing hematoma -S/p emergent surgery Acute respiratory failure secondary to hematoma compressing airway -Continue ventilator care for today -Will wean when ok with surgery HTN then developed hypotension after BP meds - pt responded to IVF 255 ELIZABETH MORRIS DO April 22, 2018 06:19
--- NOTE | 2018-04-22 08:05 | Diagnostic Imaging Report ---
INDICATION: Tube placement. Time of exam: 2:19 AM An endotracheal tube has its tip in good position above the bear. NG tube passes below the diaphragm. The heart size is normal. The lungs appear clear. No effusion or pneumothorax is seen. IMPRESSION: Satisfactory endotracheal tube and nasogastric tube placement. Dictated by: Dictated on workstation # [id number]
[2018-04-22] MEDS: HYDROcodone/APAP 7.5MG-325 MG/15 ML (LORTAB) UDC PO PRN ×2 (08:54→14:47)
[2018-04-22] MEDS: ASPIRIN 81 MG CHEW (CHILDREN'S ASA) PO SCH (08:54)
[2018-04-22] MEDS ORDERED: NON-FORMULARY MEDICATION 1 EA EA (Benazepril HCl 40 MG) PO SCH (09:00)
[2018-04-22] MEDS ORDERED: NON-FORMULARY MEDICATION 1 EA EA (Amlodipine Besylate 5 MG) PO SCH (09:00)
[2018-04-22] MEDS: PANTOPRAZOLE 40 MG/10 ML (PROTONIX) VIAL IV SCH ×2 (10:35→20:59)
[2018-04-22] MEDS: fentaNYL INJECTION 100 MCG/2 ML AMP IVP PRN (10:40)
--- NOTE | 2018-04-22 10:41 | Diagnostic Imaging Report ---
Indication: PICC line placement. Time of exam: 10:17 AM Correlation is made with prior study earlier the same day. The endotracheal tube has its tip at the level of the clavicular heads. NG tube passed below the diaphragm. A right upper extremity PICC line has tip overlying the SVC. No pneumothorax is seen. There is some generalized increased density in the upper mediastinum. There is no effusion. Impression: 1. Satisfactory right upper extremity PICC line placement. 2. Generalized increased density in the upper mediastinum, perhaps owing to a recent thyroid surgery and perhaps hematoma. No definite mass effect on the airway is detected. Dictated by: Dictated on workstation # [id number]
--- NOTE | 2018-04-22 11:14 | Progress Note-Standard ---
Standard Progress Note Progress Notes/Assess & Plan Date Seen by Provider: April 22, 2018 Time Seen by Provider: 10:05 Progress/Assessment & Plan 04/22/18:patient's family and the nursing staff report a violent episode of coughing around 1030 last night, leading to a hematoma and compression of the trachea. Reexploration by the on-call surgeon, Dr. Carrillo, who I spoke with early this morning. Hematoma evacuated and drain placed. Patient left intubated in anticipation of edema of the airway. Oxygenation and ventilation appropriate. Episodes of hypotension about 6 a.m. this morning, responded to a total of 2 L of fluids. Currently normotensive. Calcium more than 8 mg. Intravenous thyroxine would be metastatic today. I have talked to her daughter and the sister and the family waiting room, updating about the patient's condition. Minimal output from the drain. Possible extubation in 1-2 days. I have made the family aware of the potential for injury to the recurrent laryngeal nerve due to reexploration. Final Diagnosis Follicular neoplasm of thyroid. Postoperative hematoma Focused Exam Lactate Level 04/22/18 02:05: Lactic Acid Level 1.70 NEGAR SINGER MD April 22, 2018 11:14
[2018-04-22] MEDS ORDERED: LEVOTHYROXINE 100 MCG INJ (SYNTHROID) VIAL IV SCH (11:15)
[2018-04-22] MEDS ORDERED: meTOprolol 5 MG/5 ML (LOPRESSOR) VIAL IV PRN (11:15)
[2018-04-22] MEDS: CARVEDILOL 12.5 MG (COREG) TABLET PO SCH ×2 (11:39→20:05)
[2018-04-22] MEDS: ROSUVASTATIN 5 MG (CRESTOR) TABLET PO SCH (13:18)
[2018-04-22] MEDS: lisINopril 40 MG (PRINIVIL) TABLET PO SCH (18:53)
[2018-04-22] MEDS: amLODIPine 5 MG (NORVASC) TAB PO SCH (18:53)
[2018-04-22] MEDS ORDERED: LACTATED RINGERS 1,000 ML IV ONE (21:20)
[2018-04-23] VITALS (28 sets, daily range): BP systolic 100–177; BP diastolic 45–136
[2018-04-23] MEDS: fentaNYL INJECTION 100 MCG/2 ML AMP IVP PRN ×3 (00:34→21:34)
[2018-04-23 03:45] LABS: ABG BASE EXCESS 0.9 MMOL/L (-2.5-2.5); ABG OXYGEN SATURATION 97 % (94-100); ABG PCO2 35 MMHG (35-45); ABG PH 7.46 (7.37-7.43); ABG PO2 74 MMHG (79-93); ABG TCO2 25.4 MMOL/L (21.0-31.0); ALLENS TEST YES-POS; INSPIRED O2 21%; PATIENT TEMP 98.6; VENTILATOR YES
[2018-04-23 03:53] LABS: BASOPHILS % (AUTO) 0 % (0-10); EOSINOPHILS % (AUTO) 0 % (0-10); HEMATOCRIT 30 % (35-52); HEMOGLOBIN 9.8 G/DL (11.5-16.0); LYMPHOCYTES # (AUTO) 2.5 X 10^3 (1.0-4.0); LYMPHOCYTES % (AUTO) 22 % (12-44); MEAN CORPUSCULAR HEMOGLOBIN 30 PG (25-34); MEAN CORPUSCULAR HGB CONC 32 G/DL (32-36); MEAN CORPUSCULAR VOLUME 94 FL (80-99); MEAN PLATELET VOLUME 10.1 FL (7.4-10.4); MONOCYTES % (AUTO) 9 % (0-12); NEUTROPHILS # (AUTO) 7.7 X 10^3 (1.8-7.8); NEUTROPHILS % (AUTO) 69 % (42-75); PLATELET COUNT 185 10^3/uL (130-400); RED BLOOD COUNT 3.23 10^6/uL (4.35-5.85); RED CELL DISTRIBUTION WIDTH 12.5 % (10.0-14.5); WHITE BLOOD COUNT 11.2 10^3/uL (4.3-11.0)
[2018-04-23] MEDS: PROPOFOL DRIP (ICU) 100 ML IV SCH ×2 (04:16→10:18)
[2018-04-23 04:39] LABS: BUN/CREATININE RATIO 19; CALCIUM 7.5 MG/DL (8.5-10.1); CARBON DIOXIDE 22 MMOL/L (21-32); CHLORIDE 111 MMOL/L (98-107); CREATININE SERUM 0.73 MG/DL (0.60-1.30); GFR ESTIMATED > 60; GLUCOSE 86 MG/DL (70-105); MAGNESIUM 1.9 MG/DL (1.8-2.4); PHOSPHORUS 2.2 MG/DL (2.3-4.7); POTASSIUM 3.9 MMOL/L (3.6-5.0); SODIUM 142 MMOL/L (135-145)
[2018-04-23] MEDS: POTASSIUM CL 10MEQ/50ML IVPB 50 ML IV SCH (04:41)
[2018-04-23] MEDS: KCL 20 MEQ TAB (K-DUR) PO SCH (04:41)
[2018-04-23] MEDS: MAGNESIUM 1 GM/100 ML IVPB 100 ML IV SCH (04:41)
--- NOTE | 2018-04-23 05:23 | Pulmonary Progress Note ---
Subjective Time Seen by Provider: 05:26 Subjective/Events-last exam PT ON VENT ONLY REQUIRING 21% FI02. Focused Exam Lactate Level 04/22/18 02:05: Lactic Acid Level 1.70 Exam Exam Vital Signs Date Time Temp Pulse Resp B/P (MAP) Pulse Ox O2 Delivery O2 Flow Rate FiO2 04/23/18 04:16 98.0 81 14 149/136 98 Mechanical Ventilator 21.00 04/23/18 04:00 77 11 169/77 (107) 97 Mechanical Ventilator 21.00 04/23/18 04:00 Mechanical Ventilator 21 04/23/18 03:55 14 21 04/23/18 03:33 81 16 98 21 04/23/18 03:00 72 14 150/65 (93) 97 Mechanical Ventilator 21.00 04/23/18 02:00 65 12 107/46 (66) 96 Mechanical Ventilator 21.00 04/23/18 01:05 68 13 97 21 04/23/18 01:00 72 04/23/18 01:00 72 12 141/61 (87) 97 Mechanical Ventilator 21.00 04/23/18 00:29 98.0 04/23/18 00:00 67 12 122/54 (76) 95 Mechanical Ventilator 21.00 04/23/18 00:00 Mechanical Ventilator 21 04/22/18 23:00 66 12 108/42 (64) 96 Mechanical Ventilator 21.00 04/22/18 22:50 66 13 97 21 04/22/18 22:15 98.6 65 12 108/48 96 Mechanical Ventilator 21.00 04/22/18 22:00 71 11 143/60 (87) 97 Mechanical Ventilator 21.00 04/22/18 21:12 65 12 96 21 04/22/18 21:00 64 12 108/48 (68) 96 Mechanical Ventilator 21.00 04/22/18 20:00 Mechanical Ventilator 21 04/22/18 20:00 67 12 105/42 (63) 97 Mechanical Ventilator 21.00 04/22/18 19:48 68 12 97 21 04/22/18 19:25 98.6 68 12 134/63 (86) 96 Mechanical Ventilator 21.00 04/22/18 19:00 70 04/22/18 19:00 70 12 126/51 (76) 97 Mechanical Ventilator 21.00 04/22/18 18:17 77 14 96 21 04/22/18 18:00 63 12 98/42 (60) 96 Mechanical Ventilator 21.00 04/22/18 17:00 64 11 108/47 (67) 96 Mechanical Ventilator 21.00 04/22/18 16:37 126/52 04/22/18 16:10 Mechanical Ventilator 21 04/22/18 16:10 98.7 Mechanical Ventilator 21.00 04/22/18 16:03 65 12 96 21 04/22/18 16:00 62 11 112/47 (68) 95 Mechanical Ventilator 21.00 04/22/18 15:00 65 12 129/56 (80) 95 Mechanical Ventilator 21.00 04/22/18 14:28 62 12 97 21 04/22/18 14:00 65 13 149/62 (91) 97 Mechanical Ventilator 21.00 04/22/18 13:00 56 04/22/18 13:00 56 12 121/55 (77) 96 Mechanical Ventilator 21.00 04/22/18 12:43 61 12 97 21 04/22/18 12:04 Mechanical Ventilator 21 04/22/18 12:00 55 11 107/47 (67) 94 Mechanical Ventilator 21.00 04/22/18 12:00 98.3 Mechanical Ventilator 21.00 04/22/18 10:19 67 12 97 21 04/22/18 10:00 58 11 108/48 (68) 95 Mechanical Ventilator 21.00 04/22/18 09:15 98.2 Mechanical Ventilator 21.00 04/22/18 09:00 60 29 150/68 (95) 95 Mechanical Ventilator 21.00 04/22/18 08:54 Mechanical Ventilator 21 04/22/18 08:31 59 12 98 30 04/22/18 08:00 58 12 112/54 (73) 97 Mechanical Ventilator 30.00 04/22/18 07:00 61 04/22/18 07:00 59 11 113/54 (73) 96 Mechanical Ventilator 30.00 04/22/18 06:40 Mechanical Ventilator 30.00 04/22/18 06:25 59 12 100 40 04/22/18 06:00 61 12 138/60 (86) 100 Mechanical Ventilator 50.00 I & O 04/23/18 07:00 Intake Total 500 ml Output Total 1025 ml Balance -525 ml General Appearance: No Apparent Distress (sedated on vent) HEENT: Other (neck is bandaged and clean. 7.[address].) Respiratory: Lungs Clear, No Accessory Muscle Use, No Respiratory Distress Cardiovascular: Tachycardia Gastrointestinal: non tender, soft Neurologic/Psychiatric: Alert Skin: Normal Color (bruising inferior to neck incision) Lymphatic: No Adenopathy Results Lab Laboratory Tests 04/21/18 10:45 04/22/18 02:05 04/23/18 03:20 Assessment/Plan Assessment/Plan S/p Thyroidectomy with developing hematoma -S/p emergent surgery Acute respiratory failure secondary to hematoma compressing airway -Continue ventilator care for today -WILL WEAN VENT WHEN OK WITH SURGERY -Check US of neck secondary to obvious edema to ensure there's not going to be tracheal compression when extubated. -Will wean when ok with surgery HTN then developed hypotension after BP meds - pt responded to IVF 233 ELIZABETH MORRIS DO April 23, 2018 05:23
[2018-04-23] MEDS ORDERED: SODIUM PHOSPHATE INJ 30 MM in NS (IVPB) 250 ML IV NR (06:45)
[2018-04-23] MEDS: LACTATED RINGERS 1,000 ML IV SCH (07:28)
--- NOTE | 2018-04-23 08:35 | Diagnostic Imaging Report ---
INDICATION: Dyspnea. Comparison made with prior examination 04/22/18. FINDINGS: Lines and tubes are in satisfactory position. Heart size is normal. Lungs are clear. There is no pleural effusion or pneumothorax. IMPRESSION: Stable appearance of the chest. Dictated by: Dictated on workstation # [id number]
[2018-04-23] MEDS: amLODIPine 5 MG (NORVASC) TAB PO SCH (08:43)
[2018-04-23] MEDS: lisINopril 40 MG (PRINIVIL) TABLET PO SCH (08:43)
[2018-04-23] MEDS: PANTOPRAZOLE 40 MG/10 ML (PROTONIX) VIAL IV SCH ×2 (08:43→21:33)
[2018-04-23] MEDS: ASPIRIN 81 MG CHEW (CHILDREN'S ASA) PO SCH (08:43)
[2018-04-23] MEDS: ROSUVASTATIN 5 MG (CRESTOR) TABLET PO SCH (08:43)
[2018-04-23] MEDS: CARVEDILOL 12.5 MG (COREG) TABLET PO SCH ×2 (08:43→21:10)
[2018-04-23] MEDS ORDERED: CALCIUM GLUCONATE 10% INJ 4.65 MEQ in NS (IVPB) 50 ML IV NR ×2 (09:14→19:15)
[2018-04-23] MEDS ORDERED: POTASSIUM PHOSPHATE INJ 30 MM in NS (IVPB) 250 ML IV ONE (09:15)
[2018-04-23 10:20] LABS: HEMOGLOBIN 8.7 G/DL (11.5-16.0)
--- NOTE | 2018-04-23 11:15 | Diagnostic Imaging Report ---
INDICATION: Neck edema. Patient had bilateral thyroidectomy approximately 2 days ago with postoperative hematoma. TECHNIQUE: Sonographic interrogation of the soft tissues of the neck was performed. FINDINGS: There is a complex fluid collection in the right thyroid bed measuring 2.5 x 2.5 x 5.2 cm. There is a similar complex fluid collection in the left neck thyroid bed measuring 2.5 x 2.1 x 3.8 cm. IMPRESSION: Bilateral neck hematomas, as described. Dictated by: Dictated on workstation # [id number]
[2018-04-23] MEDS ORDERED: NS 250 ML (IVPB) BAG IV ONE (14:00)
[2018-04-23] MEDS ORDERED: IOHEXOL 350 MG/ML 100 ML (OMNIPAQUE 350) VIAL IV ONE (14:00)
[2018-04-23] MEDS ORDERED: DEXTROSE 50% 50 ML (IMS) SYR ONE (14:53)
--- NOTE | 2018-04-23 15:01 | Anesthesia-General Post-Op ---
General Patient Condition Mental Status/LOC: Same as Preop (Off sedation, appears to open eyes and nod head appropriately. ) Cardiovascular: Satisfactory Nausea/Vomiting: Absent (still intubated) Respiratory: Unsatisfactory (This morning she was on FiO2 21% and breathing on her own with ETT in place. ) Pain: Controlled Complications: Present (Pt was brought emergently to the OR for expanding neck hematoma after thyroidectomy Friday. She remains intubated. This morning the patient was off sedation and could open eyes and nod head appropriately. ) Post Op Complications Complications Post op thyroidectomy hematoma. No airway issues and ETT still in place. Follow Up Care/Instructions Patient Instructions None needed. Anesthesia/Patient Condition Patient Condition Patient is still intubated. We will be available if needed. MARGARETH RODARTE DO April 23, 2018 15:01
--- NOTE | 2018-04-23 15:13 | Diagnostic Imaging Report ---
INDICATION: Status post recent thyroidectomy with return to surgery for postop bleeding. The study is performed to evaluate for airway compromise prior to extubation. TECHNIQUE: After intravenous administration of contrast, thin section axial CT angiography of the neck was performed. Source data was reformatted into multiple MIP projections. FINDINGS: Endotracheal tube is located within the trachea terminates above the bear. There is also an NG tube in place. There are postop changes of thyroidectomy. There are multiple surgical clips located within the thyroid bed. There is some increased density noted at the thyroid bed consistent with hematoma, correlating with the ultrasound earlier the same day. Small amount of gas is present in the thyroid bed as well. No significant mass effect on the adjacent trachea is seen. Airway at the level of the thyroid bed appears to be widely patent. Soft tissue at the thyroid bed measures approximately 3.3 cm AP x 2.9 cm transverse on the left and 3.1 cm AP x 2.5 cm on the right. A hematoma extends from the thyroid bed cephalad to the level of the hyoid. No definite acute arterial extravasation is seen. There is a surgical drain which enters at the level of the clavicles on the left and extends just anterior to the trachea and curls cephalad. The tip is located just anterior to the thyroid cartilage. No other significant abnormality is seen. The intracranial structures are unremarkable. Posterior nasopharynx and oropharynx are unremarkable. Visualized salivary glands are unremarkable. IMPRESSION: Status post thyroidectomy. There is a hematoma in the neck at the thyroid bed and extending cephalad, as described. No significant mass effect or compression of the adjacent trachea is seen. No active arterial extravasation is identified. Dictated by: Dictated on workstation # [id number]
[2018-04-23] MEDS: D5 LR IV SOLUTION 1,000 ML IV SCH (15:25)
[2018-04-23 16:34] LABS: ABG BASE EXCESS 1.1 MMOL/L (-2.5-2.5); ABG OXYGEN SATURATION 97 % (94-100); ABG PCO2 37 MMHG (35-45); ABG PH 7.44 (7.37-7.43); ABG PO2 85 MMHG (79-93); ABG TCO2 25.8 MMOL/L (21.0-31.0)
[2018-04-23 16:35] LABS: ALLENS TEST YES-POS; INSPIRED O2 21%; VENTILATOR YES
[2018-04-23 16:36] LABS: PATIENT TEMP 99.3
--- NOTE | 2018-04-23 16:41 | Progress Note-Standard ---
Standard Progress Note Progress Notes/Assess & Plan Date Seen by Provider: April 23, 2018 Time Seen by Provider: 09:20 Progress/Assessment & Plan 04/22/18:patient's family and the nursing staff report a violent episode of coughing around 1030 last night, leading to a hematoma and compression of the trachea. Reexploration by the on-call surgeon, Dr. Carrillo, who I spoke with early this morning. Hematoma evacuated and drain placed. Patient left intubated in anticipation of edema of the airway. Oxygenation and ventilation appropriate. Episodes of hypotension about 6 a.m. this morning, responded to a total of 2 L of fluids. Currently normotensive. Calcium more than 8 mg. Intravenous thyroxine would be metastatic today. I have talked to her daughter and the sister and the family waiting room, updating about the patient's condition. Minimal output from the drain. Possible extubation in 1-2 days. I have made the family aware of the potential for injury to the recurrent laryngeal nerve due to reexploration. 04/23/18: Seen in the morning and subsequently around 2 o'clock. Sedated with soft tissue swelling over the right side of the neck. CT scan shows no compression on the trachea with no extravasation of the contrast. Therefore, it is reasonable to attempt weaning from the ventilator, with a view to extubation. Hemoglobin is decreased due to the formation of a hematoma and hemodilution. This could be observed at this point. 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 This should be disclosed to the family during the next visit Final Diagnosis Multinodular goiter. Postoperative hematoma Focused Exam Lactate Level 04/22/18 02:05: Lactic Acid Level 1.70 NEGAR SINGER MD April 23, 2018 16:41
--- NOTE | 2018-04-23 16:56 | OPERATIVE REPORT ---
DATE OF SERVICE: 04/21/2018 PREOPERATIVE DIAGNOSIS: Airway compromise secondary to expanding hematoma status post thyroidectomy. POSTOPERATIVE DIAGNOSIS: Airway compromise secondary to expanding hematoma status post thyroidectomy. PROCEDURE: Exploration of neck with evacuation of hematoma, control of bleeding. ANESTHESIA: General. SURGEON: Robbie Carrillo DO ESTIMATED BLOOD LOSS: Approximately 70 mL of clot and 30 mL of bright red blood. INDICATIONS: The patient is a 72-year-old female who earlier underwent thyroidectomy by Dr. Tarango. Postoperatively, the patient began having some neck swelling, inability to speak with her normal voice and having difficulty breathing. The patient's neck was examined and she had significant swelling throughout the neck region with bruising inferior to the incision. Her dressing was taken down and had some slight bleeding through the incision as well. At this time, these findings were discussed with the patient and the family that there is concern for airway compromise due to expanding hematoma causing compression of the trachea and the emergent exploration of the neck need to be performed. The operating team had already been called in case of this scenario and I stayed with the patient until we are all the way from the room down to the operating room. DESCRIPTION OF PROCEDURE: The patient was intubated and the patient was prepped and draped in a sterile fashion. A timeout was performed. The skin incision was then opened, no significant hematoma present at this time in the first layer. The platysma was then divided, which then began noticing a little bit of blood within this layer, but noticing significantly taught strap muscles. Once the strap muscles were then opened by cutting the suture that was done in a running fashion, once this was cut a significant amount of clot started protruding between the strap muscles. Once this was completely opened, the whole area was significantly distended with clot. Irrigation was then used to begin irrigating field and evacuating the clot. Gentle finger manipulation of the clot was performed removing the clot. With copious amounts of irrigation was used, continue to improve visualization throughout this area. Once all the clot was evacuated, The wound was continued to be inspected for any active bleeding. There is one area of active bleeding, which was very small, which was at the level of the ligament of Fraser on the right side. It was more medial to this approximately a centimeter away from the ligament of Fraser on the trachea. Cautery was used to control this area achieving hemostasis. The wound was then irrigated with copious amounts of irrigation again and continued to be inspected for any other sources of bleeding. No other source of bleeding was identified. A Gelfoam and thrombin was then used to pack the wound and this was let to sit for approximately 5 to 10 minutes. This was then removed. The wound was then reinspected, again seen no areas of bleeding. At this time, a 15-Macedonian Jose drain was placed through a stab incision inferior to the incision and was cut to length, which was then placed underneath the strap muscles and the strap muscles were then closed in interrupted fashion with 3-0 Vicryls. The platysma muscle was then reapproximated using 3-0 Vicryl. The skin was then closed using 4-0 Vicryl in a running subcuticular fashion. The area was then washed and dried. Mastisol and Steri-Strips were applied and sterile bandage was applied. The drain was secured in place with 3-0 silk suture. The patient tolerated procedure well, but due to the significant edema and difficulty with intubation, the patient remained intubated and placed in the Intensive Care Unit. Job ID: [id number] DocumentID: [id number] Dictated Date: 04/23/2018 13:44:35 Chinese Herbalist Date: 04/23/2018 16:55:53 Dictated By: DO JOLANTA BELTRAN
[2018-04-23] MEDS ORDERED: fentaNYL INJECTION 100 MCG/2 ML AMP ONE (21:08)
[2018-04-24] VITALS (12 sets, daily range): BP systolic 132–184; BP diastolic 52–79
[2018-04-24] MEDS: fentaNYL INJECTION 100 MCG/2 ML AMP IVP PRN ×4 (00:37→06:00)
[2018-04-24 04:15] LABS: BASOPHILS # (AUTO) 0.1 10^3/uL (0.0-0.1); BASOPHILS % (AUTO) 1 % (0-10); EOSINOPHILS % (AUTO) 0 % (0-10); HEMATOCRIT 32 % (35-52); HEMOGLOBIN 10.6 G/DL (11.5-16.0); LYMPHOCYTES # (AUTO) 2.1 X 10^3 (1.0-4.0); LYMPHOCYTES % (AUTO) 23 % (12-44); MEAN CORPUSCULAR HEMOGLOBIN 30 PG (25-34); MEAN CORPUSCULAR HGB CONC 33 G/DL (32-36); MEAN CORPUSCULAR VOLUME 92 FL (80-99); MEAN PLATELET VOLUME 9.8 FL (7.4-10.4); MONOCYTES % (AUTO) 10 % (0-12); NEUTROPHILS # (AUTO) 6.1 X 10^3 (1.8-7.8); NEUTROPHILS % (AUTO) 66 % (42-75); PLATELET COUNT 197 10^3/uL (130-400); RED BLOOD COUNT 3.51 10^6/uL (4.35-5.85); RED CELL DISTRIBUTION WIDTH 12.1 % (10.0-14.5); WHITE BLOOD COUNT 9.2 10^3/uL (4.3-11.0)
[2018-04-24 04:45] LABS: BUN/CREATININE RATIO 11; CALCIUM 8.2 MG/DL (8.5-10.1); CARBON DIOXIDE 25 MMOL/L (21-32); CHLORIDE 109 MMOL/L (98-107); CREATININE SERUM 0.64 MG/DL (0.60-1.30); GFR ESTIMATED > 60; GLUCOSE 90 MG/DL (70-105); MAGNESIUM 1.8 MG/DL (1.8-2.4); PHOSPHORUS 2.8 MG/DL (2.3-4.7); POTASSIUM 3.2 MMOL/L (3.6-5.0); SODIUM 144 MMOL/L (135-145)
[2018-04-24] MEDS: POTASSIUM CL 10MEQ/50ML IVPB 50 ML IV SCH ×5 (05:24→08:45)
[2018-04-24] MEDS: MAGNESIUM 1 GM/100 ML IVPB 100 ML IV SCH (05:24)
[2018-04-24] MEDS: KCL 20 MEQ TAB (K-DUR) PO SCH (05:25)
--- NOTE | 2018-04-24 06:16 | Pulmonary Progress Note ---
Subjective Time Seen by Provider: 06:14 Subjective/Events-last exam pt appears to be doing much better. Focused Exam Lactate Level 04/22/18 02:05: Lactic Acid Level 1.70 Exam Exam Vital Signs Date Time Temp Pulse Resp B/P (MAP) Pulse Ox O2 Delivery O2 Flow Rate FiO2 04/24/18 05:00 63 13 151/68 (95) 95 Room Air 04/24/18 04:00 80 11 168/69 (102) 96 Room Air 04/24/18 04:00 98.0 04/24/18 04:00 Room Air 04/24/18 03:00 60 13 149/61 (90) 95 Room Air 04/24/18 02:00 81 166/52 (90) 96 Room Air 04/24/18 01:00 70 04/24/18 01:00 66 144/61 (88) 94 Room Air 04/24/18 00:10 98.8 04/24/18 00:00 74 167/66 (99) 96 Room Air 04/24/18 00:00 Room Air 04/23/18 23:00 73 161/65 (97) 95 Room Air 04/23/18 22:00 71 148/58 (88) 94 Room Air 04/23/18 21:44 99 Room Air 04/23/18 21:00 80 155/68 (97) 97 Nasal Cannula 2.00 04/23/18 20:17 99.5 77 18 174/68 (103) 98 Nasal Cannula 2.00 04/23/18 20:00 Room Air 04/23/18 19:00 73 155/76 (102) 98 Nasal Cannula 2.00 04/23/18 19:00 73 04/23/18 18:00 80 97 Mechanical Ventilator 21.00 04/23/18 17:00 83 159/62 (94) 98 Mechanical Ventilator 21.00 04/23/18 16:00 99.5 85 20 177/73 (107) 97 Mechanical Ventilator 21.00 04/23/18 16:00 Mechanical Ventilator 21 04/23/18 15:00 65 8 176/77 (110) 96 Mechanical Ventilator 21.00 04/23/18 14:00 73 144/62 (89) 97 Mechanical Ventilator 21.00 04/23/18 13:35 99 21 04/23/18 13:25 61 12 97 21 04/23/18 13:00 62 04/23/18 13:00 62 19 126/57 (80) 97 Mechanical Ventilator 21.00 04/23/18 12:00 Mechanical Ventilator 21 04/23/18 12:00 61 12 139/57 (84) 97 Mechanical Ventilator 21.00 04/23/18 11:00 58 11 129/55 (79) 97 Mechanical Ventilator 21.00 04/23/18 10:22 57 12 95 21 04/23/18 10:18 61 105/47 Mechanical Ventilator 21.00 04/23/18 10:00 60 12 114/50 (71) 93 Mechanical Ventilator 21.00 04/23/18 09:00 64 11 127/58 (81) 97 Mechanical Ventilator 21.00 04/23/18 08:30 64 12 97 21 04/23/18 08:07 99.1 Mechanical Ventilator 21.00 04/23/18 08:00 Mechanical Ventilator 21 04/23/18 07:00 67 04/23/18 07:00 73 14 130/54 (79) 97 Mechanical Ventilator 21.00 04/23/18 06:38 67 13 97 21 I & O 04/24/18 07:00 Intake Total 150 ml Output Total 2785 ml Balance -2635 ml General Appearance: No Apparent Distress (sedated on vent) HEENT: Other (neck is bandaged and clean. 7.[address].) Respiratory: Lungs Clear, No Accessory Muscle Use, No Respiratory Distress Cardiovascular: Tachycardia Gastrointestinal: non tender, soft Neurologic/Psychiatric: Alert Skin: Normal Color (bruising inferior to neck incision) Lymphatic: No Adenopathy Results Lab Laboratory Tests 04/23/18 03:20 04/23/18 10:10 04/24/18 03:45 Assessment/Plan Assessment/Plan S/p Thyroidectomy with developing hematoma -S/p emergent surgery Acute respiratory failure secondary to hematoma compressing airway -PT is now off ventilator and doing well. No complications noted. HTN then developed hypotension after BP meds - pt responded to IVF To 4th floor when ok with surgery. 233 ELIZABETH MORRIS DO April 24, 2018 06:16
--- NOTE | 2018-04-24 07:18 | Diagnostic Imaging Report ---
INDICATION: Status post thyroidectomy. Followup. COMPARISON: 04/23/2018 FINDINGS: Single frontal radiographic view of the chest was obtained and demonstrates interval extubation and removal of enteric tube. Surgical drain remains projecting over the chest. Right upper extremity PICC line is also again identified. Cardiac silhouette and pulmonary vasculature is stable and within normal limits. Lungs remain clear. There is no focal consolidation, large effusion, nor pneumothorax. Bony structures show no gross acute abnormalities. IMPRESSION: 1. Lines and tubes as above. Otherwise, no acute cardiopulmonary process. Dictated by: Dictated on workstation # [id number]
[2018-04-24] MEDS: amLODIPine 5 MG (NORVASC) TAB PO SCH (10:49)
[2018-04-24] MEDS: ASPIRIN 81 MG CHEW (CHILDREN'S ASA) PO SCH (10:49)
[2018-04-24] MEDS: CARVEDILOL 12.5 MG (COREG) TABLET PO SCH ×2 (10:50→21:43)
[2018-04-24] MEDS: HYDROcodone/APAP 5 MG/325 MG (LORTAB) TAB PO PRN ×2 (10:50→21:43)
[2018-04-24] MEDS: PANTOPRAZOLE 40 MG (PROTONIX) TAB PO SCH ×2 (10:50→17:38)
[2018-04-24] MEDS: ROSUVASTATIN 5 MG (CRESTOR) TABLET PO SCH (10:50)
[2018-04-24] MEDS: LEVOTHYROXINE 100 MCG (LEVOTHROID) TAB PO SCH (10:50)
[2018-04-24] MEDS: lisINopril 40 MG (PRINIVIL) TABLET PO SCH (10:50)
--- NOTE | 2018-04-24 11:24 | Progress Note-Standard ---
Standard Progress Note Progress Notes/Assess & Plan Date Seen by Provider: April 24, 2018 Time Seen by Provider: 11:22 Progress/Assessment & Plan 04/22/18:patient's family and the nursing staff report a violent episode of coughing around 1030 last night, leading to a hematoma and compression of the trachea. Reexploration by the on-call surgeon, Dr. Carrillo, who I spoke with early this morning. Hematoma evacuated and drain placed. Patient left intubated in anticipation of edema of the airway. Oxygenation and ventilation appropriate. Episodes of hypotension about 6 a.m. this morning, responded to a total of 2 L of fluids. Currently normotensive. Calcium more than 8 mg. Intravenous thyroxine would be metastatic today. I have talked to her daughter and the sister and the family waiting room, updating about the patient's condition. Minimal output from the drain. Possible extubation in 1-2 days. I have made the family aware of the potential for injury to the recurrent laryngeal nerve due to reexploration. 04/23/18: Seen in the morning and subsequently around 2 o'clock. Sedated with soft tissue swelling over the right side of the neck. CT scan shows no compression on the trachea with no extravasation of the contrast. Therefore, it is reasonable to attempt weaning from the ventilator, with a view to extubation. Hemoglobin is decreased due to the formation of a hematoma and hemodilution. This could be observed at this point. 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 This should be disclosed to the family during the next visit 04/24/18: Vocal cord function intact. Calcium 8.2. Very minimal output from the drain, which would be removed. Hypokalemia, replaced early this morning. She appears to be slightly anxious. 2 mm focus of papillary carcinoma, should be considered as an incidental finding. I have disclosed this to the patient and her family Increase kristina intake and possibly discharge in a.m. Final Diagnosis Papillary carcinoma of thyroid Focused Exam Lactate Level 04/22/18 02:05: Lactic Acid Level 1.70 NEGAR SINGER MD April 24, 2018 11:24
[2018-04-24] MEDS: D5 LR IV SOLUTION 1,000 ML IV SCH (13:40)
[2018-04-24] MEDS ORDERED: ACETAMINOPHEN 500 MG TAB (TYLENOL) PO PRN (17:30)
[2018-04-24] MEDS ORDERED: ACETAMINOPHEN 500 MG TAB (TYLENOL) ONE (17:32)
[2018-04-25] MEDS: HYDROcodone/APAP 5 MG/325 MG (LORTAB) TAB PO PRN ×3 (01:46→10:13)
[2018-04-25 03:40] VITALS: BP 141/63
[2018-04-25] MEDS: POTASSIUM CL 10MEQ/50ML IVPB 50 ML IV SCH (05:41)
[2018-04-25] MEDS: KCL 20 MEQ TAB (K-DUR) PO SCH (05:43)
[2018-04-25] MEDS: MAGNESIUM 1 GM/100 ML IVPB 100 ML IV SCH (05:43)
[2018-04-25] MEDS: LEVOTHYROXINE 100 MCG (LEVOTHROID) TAB PO SCH (05:46)
[2018-04-25] MEDS: PANTOPRAZOLE 40 MG (PROTONIX) TAB PO SCH (05:46)
[2018-04-25 06:16] LABS: BASOPHILS # (AUTO) 0.1 10^3/uL (0.0-0.1); BASOPHILS % (AUTO) 1 % (0-10); EOSINOPHILS # (AUTO) 0.2 10^3/uL (0.0-0.3); EOSINOPHILS % (AUTO) 3 % (0-10); HEMATOCRIT 33 % (35-52); HEMOGLOBIN 10.8 G/DL (11.5-16.0); LYMPHOCYTES # (AUTO) 1.4 X 10^3 (1.0-4.0); LYMPHOCYTES % (AUTO) 21 % (12-44); MEAN CORPUSCULAR HEMOGLOBIN 30 PG (25-34); MEAN CORPUSCULAR HGB CONC 33 G/DL (32-36); MEAN CORPUSCULAR VOLUME 91 FL (80-99); MEAN PLATELET VOLUME 9.7 FL (7.4-10.4); MONOCYTES # (AUTO) 0.7 X 10^3 (0.0-1.0); MONOCYTES % (AUTO) 10 % (0-12); NEUTROPHILS # (AUTO) 4.3 X 10^3 (1.8-7.8); NEUTROPHILS % (AUTO) 65 % (42-75); PLATELET COUNT 204 10^3/uL (130-400); RED BLOOD COUNT 3.58 10^6/uL (4.35-5.85); RED CELL DISTRIBUTION WIDTH 11.8 % (10.0-14.5); WHITE BLOOD COUNT 6.7 10^3/uL (4.3-11.0)
[2018-04-25 06:38] LABS: BUN/CREATININE RATIO 14; CALCIUM 8.4 MG/DL (8.5-10.1); CARBON DIOXIDE 24 MMOL/L (21-32); CHLORIDE 107 MMOL/L (98-107); CREATININE SERUM 0.69 MG/DL (0.60-1.30); GFR ESTIMATED > 60; GLUCOSE 101 MG/DL (70-105); PHOSPHORUS 3.2 MG/DL (2.3-4.7); POTASSIUM 3.6 MMOL/L (3.6-5.0); SODIUM 141 MMOL/L (135-145)
[2018-04-25 07:37] VITALS: BP 127/60
[2018-04-25] MEDS: D5 LR IV SOLUTION 1,000 ML IV SCH (07:50)
[2018-04-25] MEDS: lisINopril 40 MG (PRINIVIL) TABLET PO SCH (08:32)
[2018-04-25] MEDS: CARVEDILOL 12.5 MG (COREG) TABLET PO SCH (08:32)
[2018-04-25] MEDS: ASPIRIN 81 MG CHEW (CHILDREN'S ASA) PO SCH (08:32)
[2018-04-25] MEDS: amLODIPine 5 MG (NORVASC) TAB PO SCH (08:32)
[2018-04-25] MEDS: ROSUVASTATIN 5 MG (CRESTOR) TABLET PO SCH (08:32)
[2018-04-25 12:00] VITALS: BP 133/62
[2018-04-25 13:15] VITALS: BP 133/62
--- NOTE | 2018-04-25 13:22 | Progress Note ---
Subjective Time Seen by Provider: 10:41 Subjective/Events-last exam Pt seen and examined, very nervous about going home. Pt is concerned about swallowing and eating; however, she denies any trouble drinking clears. Review of Systems General: No Chills, No Night Sweats Pulmonary: No Cough Cardiovascular: No: Chest Pain Objective Exam Vital Signs Date Time Temp Pulse Resp B/P (MAP) Pulse Ox O2 Delivery O2 Flow Rate FiO2 04/25/18 12:00 97.6 61 18 133/62 (85) 94 Room Air 04/25/18 07:37 99.3 71 18 127/60 (82) 92 Room Air 04/25/18 03:40 97.1 60 16 141/63 (89) 95 Room Air 04/24/18 23:50 97.8 59 18 144/67 (92) 95 Room Air 04/24/18 20:00 Room Air 04/24/18 19:25 97.5 71 16 132/60 (84) 95 Room Air 04/24/18 16:50 98.2 61 14 180/74 (109) 95 Room Air I & O 04/25/18 07:00 Intake Total 890 ml Output Total 20 ml Balance 870 ml Capillary Refill : General Appearance: No Apparent Distress HEENT: Other (neck is bandaged and clean, removed sponge over drain site looks good) Respiratory: Lungs Clear, No Accessory Muscle Use, No Respiratory Distress Cardiovascular: Regular Rate, Rhythm Gastrointestinal: non tender, soft Neurologic/Psychiatric: Alert Skin: Normal Color (bruising inferior to neck incision) Results Lab Laboratory Tests 04/25/18 06:06: White Blood Count 6.7, Red Blood Count 3.58L, Hemoglobin 10.8L, Hematocrit 33L, Mean Corpuscular Volume 91, Mean Corpuscular Hemoglobin 30, Mean Corpuscular Hemoglobin Concent 33, Red Cell Distribution Width 11.8, Platelet Count 204, Mean Platelet Volume 9.7, Neutrophils (%) (Auto) 65, Lymphocytes (%) (Auto) 21, Monocytes (%) (Auto) 10, Eosinophils (%) (Auto) 3, Basophils (%) (Auto) 1, Neutrophils # (Auto) 4.3, Lymphocytes # (Auto) 1.4, Monocytes # (Auto) 0.7, Eosinophils # (Auto) 0.2, Basophils # (Auto) 0.1, Sodium Level 141, Potassium Level 3.6, Chloride Level 107, Carbon Dioxide Level 24, Anion Gap 10, Blood Urea Nitrogen 10, Creatinine 0.69, Estimat Glomerular Filtration Rate > 60, BUN/ Creatinine Ratio 14, Glucose Level 101, Calcium Level 8.4L, Phosphorus Level 3.2 , Magnesium Level 2.0 Microbiology 04/22/18 Gram Stain - Final, Complete 04/22/18 Sputum Culture - Final, Complete Presumptive Rand Albicans Assessment/Plan Assessment/Plan Assessment/Plan s/p thyroidectomy Pt speaking without any hoarseness, swallowing without difficulty. OK to d/c home. Clinical Quality Measures DVT/VTE Risk/Contraindication: Risk Factor Score Per Nursin RFS Level Per Nursing on Admit: 3=High Contraindications-Pharm: Other *list below* Other: POST OP BLEED KIRTI ALEJANDRE DO April 25, 2018 13:22
--- NOTE | 2018-05-07 23:21 | DISCHARGE SUMMARY ---
DATE OF SERVICE: DIAGNOSIS: Bilateral thyroid nodules. 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 Due to previous endovascular intervention involving the carotid artery, aspirin was continued perioperatively. She developed postoperative hematoma during the late hours of the post-op night, requiring exploration and placement of drain. Subsequently, she made a reasonable recovery. At the time of discharge, her vocal cord function was preserved and her calcium back to normal. I have encouraged her to return for a followup in about 10 days. Job ID: [id number] DocumentID: [id number] Dictated Date: 05/07/2018 14:56:17 Sash Finisher Date: 05/07/2018 23:20:52 Dictated By: NEGAR SINGER MD MTDD
== END 2018-04-25 13:15 | disposition home or self-care (01) | DRG 907 ==
LOC: SDC 10:32 → 4TH 15:20 → SDC 04-22 01:38 → ICU 04-22 01:40 → UNDOADMOB 04-22 01:40 → ICU 04-22 09:04 → INTOOBSV 04-22 09:05 → OBSVTOIN 04-22 09:05 → ICU 04-22 11:13 → 4TH 04-24 10:25 → UNDODISIN 04-25 13:15
PROVIDERS: ADMIT Surgery; ATTEND Surgery
PROC: 0HBDXZZ Excision of Right Lower Arm Skin, External Approach (ICD-10-PCS; 2018-04-21)
PROC: 5A1945Z Respiratory Ventilation, 24-96 Consecutive Hours (ICD-10-PCS; 2018-04-21)
PROC: 0W360ZZ Control Bleeding in Neck, Open Approach (ICD-10-PCS; principal; 2018-04-21 12:14)
PROC: 0GTK0ZZ Resection of Thyroid Gland, Open Approach (ICD-10-PCS; 2018-04-21 12:14)
DX: E89.810 Postprocedural hemorrhage of an endocrine system organ or structure following an endocrine system procedure (principal); E89.820 Postprocedural hematoma of an endocrine system organ or structure following an endocrine system procedure; J96.00 Acute respiratory failure, unspecified whether with hypoxia or hypercapnia; C73 Malignant neoplasm of thyroid gland; E04.2 Nontoxic multinodular goiter; S51.811A Laceration without foreign body of right forearm, initial encounter; I96 Gangrene, not elsewhere classified; I10 Essential (primary) hypertension; I95.9 Hypotension, unspecified; F17.210 Nicotine dependence, cigarettes, uncomplicated; I25.10 Atherosclerotic heart disease of native coronary artery without angina pectoris; I25.2 Old myocardial infarction; E78.00 Pure hypercholesterolemia, unspecified; M19.91 Primary osteoarthritis, unspecified site; C44.90 Unspecified malignant neoplasm of skin, unspecified; F41.9 Anxiety disorder, unspecified; E87.6 Hypokalemia; W19.XXXA Unspecified fall, initial encounter; Z95.5 Presence of coronary angioplasty implant and graft
CPT/HCPCS: 36415; 36569; 36600; 70498; 71045; 76536; 76937; 80048; 80053; 82330; 82805; 82962; 83605; 83735; 84100; 84484; 85007; 85014; 85018; 85025; 85027; 85610; 87070; 87081; 87205; 88307; 94002; 94799

== ENCOUNTER → 2018-07-06 | Outpatient (CLI) | payer MEDICARE, OTHER ==
[~2018-07-06] MED LIST changes: +ACHD5005 PO; +BENA40TA5 PO; -BNZ40T PO; +LEVO100T7 PO
== END ==
LOC: CARD 13:38
PROVIDERS: ATTEND Internal Medicine Cardiovascular Disease
DX: R07.9 Chest pain, unspecified (principal); I25.10 Atherosclerotic heart disease of native coronary artery without angina pectoris; I10 Essential (primary) hypertension; E78.5 Hyperlipidemia, unspecified; I08.3 Combined rheumatic disorders of mitral, aortic and tricuspid valves; Z72.0 Tobacco use
CPT/HCPCS: 93306

== ENCOUNTER → 2018-07-08 | Outpatient (CLI) | payer MEDICARE, OTHER ==
[~2018-07-08] VITALS: Ht 175.3 cm; Wt 69.4 kg
[~2018-07-08] MED LIST changes: +CATHETER FLUSH 10 ML SYR IV PRN; +REGADENOSON 0.4 MG/5 ML SYR (LEXISCAN) IV ONE
[2018-07-08 09:38] VITALS: BP 158/67
[2018-07-08 09:45] VITALS: BP 152/60
--- NOTE | 2018-07-08 21:29 | STRESS TEST ---
DATE OF SERVICE: 07/08/2018 LEXISCAN MYOVIEW STRESS TEST REPORT REFERRING PHYSICIAN: Dr. Arshad. Baseline heart rate is 60, baseline blood pressure 158/67. Baseline EKG is sinus rhythm with no ischemic changes. In summary, the patient was injected with 10.82 mCi of technetium-99 Myoview and the resting images were obtained. Then, the patient received 0.4 mg of Lexiscan followed by 30.1 mCi of technetium-99 Myoview. Throughout the test, there were no EKG changes. The resting and stress images were reviewed and compared in the short axis, horizontal long axis, and vertical long axis views. Review of the images showed good radiotracer uptake with no significant ischemia or infarction on SPECT images. SSS is 6, SDS is 0. TID value is 1.05. On the gated images, the left ventricle appeared to be in normal size with normal contractility. Calculated ejection fraction 67%. CONCLUSION: 1. The patient tolerated Lexiscan well. 2. No ischemia or infarction on SPECT images. 3. Normal left ventricular size with normal contractility. Calculated ejection fraction 67%. Job ID: [id number] DocumentID: [id number] Dictated Date: 07/08/2018 16:59:05 Application Assistant Date: 07/08/2018 21:29:19 Dictated By: ABBEY BURNETT MD
== END ==
LOC: CARD 07:32
PROVIDERS: ATTEND Internal Medicine Cardiovascular Disease
DX: I10 Essential (primary) hypertension (principal); R07.9 Chest pain, unspecified
CPT/HCPCS: 78452; 93017

== ENCOUNTER → 2018-07-15 | Outpatient (CLI) | payer MEDICARE, OTHER ==
[~2018-07-15] MED LIST changes: -CATHETER FLUSH 10 ML SYR IV PRN; -REGADENOSON 0.4 MG/5 ML SYR (LEXISCAN) IV ONE
--- NOTE | 2018-07-15 11:42 | Diagnostic Imaging Report ---
PROCEDURE: US left lower extremity venous. TECHNIQUE: Multiple real-time grayscale images were obtained over the left lower extremity in various projections. Additional duplex Doppler and color Doppler images were also obtained. INDICATION: Left leg swelling. There is no evidence of a left lower extremity DVT. Left lower extremity deep venous system shows normal compressibility with normal response to augmentation and Valsalva. No fluid collection or mass is seen. IMPRESSION: No evidence of left lower extremity DVT. Dictated by: Dictated on workstation # [id number]
== END ==
LOC: RAD 10:35
PROVIDERS: ATTEND Family Medicine
DX: R22.42 Localized swelling, mass and lump, left lower limb (principal)

== ENCOUNTER 2018-08-06 07:10 | Emergency (ER) | payer MEDICARE ==
[~2018-08-06] VITALS: Ht 175.3 cm; Wt 67.1 kg
[~2018-08-06 07:10] MED LIST changes: -AMLO5TAB2 PO; +AMLO5TAB7 PO
[2018-08-06] MEDS ORDERED: NS IV 500 ML 500 ML IV ONE (07:24)
[2018-08-06 07:32] LABS: BASOPHILS # (AUTO) 0.1 10^3/uL (0.0-0.1); BASOPHILS % (AUTO) 2 % (0-10); EOSINOPHILS # (AUTO) 0.2 10^3/uL (0.0-0.3); EOSINOPHILS % (AUTO) 3 % (0-10); HEMATOCRIT 41 % (35-52); LYMPHOCYTES # (AUTO) 1.8 X 10^3 (1.0-4.0); LYMPHOCYTES % (AUTO) 27 % (12-44); MEAN CORPUSCULAR HEMOGLOBIN 31 PG (25-34); MEAN CORPUSCULAR HGB CONC 34 G/DL (32-36); MEAN CORPUSCULAR VOLUME 91 FL (80-99); MEAN PLATELET VOLUME 9.8 FL (7.4-10.4); MONOCYTES # (AUTO) 0.7 X 10^3 (0.0-1.0); MONOCYTES % (AUTO) 10 % (0-12); NEUTROPHILS # (AUTO) 3.9 X 10^3 (1.8-7.8); NEUTROPHILS % (AUTO) 59 % (42-75); PLATELET COUNT 236 10^3/uL (130-400); RED CELL DISTRIBUTION WIDTH 12.8 % (10.0-14.5); WHITE BLOOD COUNT 6.7 10^3/uL (4.3-11.0)
--- NOTE | 2018-08-06 07:46 | Diagnostic Imaging Report ---
INDICATION: New-onset confusion and weakness Portable chest 7:33 AM Heart size and pulmonary vascularity are normal. Lungs are clear. There are no effusions or pneumothoraces. IMPRESSION: Negative chest Dictated by: Dictated on workstation # [id number]
[2018-08-06 07:58] LABS: BILIRUBIN,URINE NEGATIVE (NEGATIVE); CLARITY,URINE CLEAR; COLOR,URINE YELLOW; GLUCOSE, URINE (UA) NEGATIVE (NEGATIVE); KETONES,URINE NEGATIVE (NEGATIVE); LEUKOCYTE ESTERASE ,URINE NEGATIVE (NEGATIVE); NITRITE,URINE NEGATIVE (NEGATIVE); PH,URINE 7 (5-9); PROTEIN,URINE NEGATIVE (NEGATIVE); UROBILINOGEN,URINE NORMAL (NORMAL)
[2018-08-06 08:09] LABS: BACTERIA,URINE NEGATIVE /HPF; SQUAMOUS EPITHELIAL CELL,UR RARE /HPF
[2018-08-06 08:09] LABS: ALANINE AMINOTRANSFERASE 11 U/L (0-55); ALBUMIN 3.8 GM/DL (3.2-4.5); ALKALINE PHOSPHATASE 53 U/L (40-136); BILIRUBIN,TOTAL 0.3 MG/DL (0.1-1.0); BUN/CREATININE RATIO 12; CALCIUM 8.8 MG/DL (8.5-10.1); CARBON DIOXIDE 28 MMOL/L (21-32); CHLORIDE 100 MMOL/L (98-107); CREATININE SERUM 0.78 MG/DL (0.60-1.30); GFR ESTIMATED > 60; GLUCOSE 96 MG/DL (70-105); MAGNESIUM 2.1 MG/DL (1.8-2.4); POTASSIUM 4.1 MMOL/L (3.6-5.0); SODIUM 134 MMOL/L (135-145); TOTAL PROTEIN 6.1 GM/DL (6.4-8.2)
--- NOTE | 2018-08-06 08:27 | ED General ---
General Chief Complaint: General Problems/Pain Stated Complaint: WEAKNESS Nursing Triage Note: PT ARRIVED PER EMS, PT CO OF WEAKNESS IN LOWER EXT BILATERALLY, PT IS VERY TIRED TODAY PT IS DIFFICULT TO KEEP AWAKE DURING PROCEDURES. PT HAS SL IN R AC #20 Nursing Sepsis Screen: No Definite Risk Source of Information: Patient, EMS Exam Limitations: No Limitations History of Present Illness Date Seen by Provider: Aug 06, 2018 Time Seen by Provider: 07:18 Initial Comments Here by EMS with report of weakness in the lower extremities this morning. Apparently family was helping her to the bathroom and then on the way back patient stated that she could not walk anymore because she was too weak. EMS was called. Patient arrives drowsy but in no distress. She does answer questions and seems to be oriented to person, place and situation. States that she is very tired and does feel weak on her legs. She has had some leg FOR quite some time. She did take full dose Xanax per the family last night instead of the half tablet. Timing/Duration: 1-3 Hours Severity: Moderate Associated Systoms: No Chest Pain, No Fever/Chills, No Nausea/Vomiting, No Shortness of Air; Weakness Allergies and Home Medications Allergies Coded Allergies: No Known Drug Allergies (Unverified , 04/20/18) Home Medications Amlodipine Besylate 5 Mg Tablet, 10 MG PO DAILY, (Reported) Aspirin 81 Mg Tab.chew, 81 MG PO DAILY, (Reported) Benazepril HCl 40 Mg Tab, 40 MG PO DAILY, (Reported) Carvedilol 12.5 Mg Tablet, 12.5 MG PO BID, (Reported) Cholecalciferol (Vitamin D3) 400 Unit Tablet, 400 UNIT PO DAILY, (Reported) Fenofibrate 54 Mg Tablet, 54 MG PO HS, (Reported) Gabapentin 800 Mg Tablet, 800 MG PO TID, (Reported) Hydrochlorothiazide 25 Mg Tablet, 25 MG PO DAILY, (Reported) Hydrocodone Bit/Acetaminophen 1 Tab Tab, 1-2 TAB PO 4-6HR PRN for PAIN Prescribed by: NEGAR SINGER on 04/21/18 141 Levothyroxine Sodium 100 Mcg Tablet, 100 MCG PO DAILY Prescribed by: NEGAR SINGER on 04/21/18 1419 Patient Home Medication List Home Medication List Reviewed: Yes Review of Systems Review of Systems Constitutional: see HPI; No chills, No fever EENTM: no symptoms reported Respiratory: no symptoms reported Cardiovascular: no symptoms reported Gastrointestinal: No nausea, No vomiting Genitourinary: no symptoms reported Musculoskeletal: see HPI, muscle pain, muscle weakness; No neck pain Skin: no symptoms reported All Other Systems Reviewed Negative Unless Noted: Yes Past Vkuqcou-Gkqwvr-Bftkod Hx Past Med/Social Hx: Reviewed Nursing Past Med/Soc Hx Patient Social History Alcohol Use: Denies Use Recreational Drug Use: No Smoking Status: Current Everyday Smoker Type Used: Cigarettes Recent Foreign Travel: No Contact w/Someone Who Travel: No Recent Infectious Disease Expo: No Recent Hopitalizations: No Physical Abuse: No Sexual Abuse: No Immunizations Up To Date Tetanus Booster (TDap): Less than 5yrs Date of Pneumonia Vaccine: Sep 11, 2015 Date of Influenza Vaccine: Sep 15, 2017 Seasonal Allergies Seasonal Allergies: No Past Medical History Surgeries: Yes (R CAROTID ENDARTERECTOMY AND STENT, L KNEE SURGERY) Appendectomy, Coronary Stent, Orthopedic, Tubal Ligation Respiratory: No Cardiac: Yes (STENTS X5) Coronary Artery Disease, Heart Attack, High Cholesterol, Hypertension Neurological: No Reproductive Disorders: No Sexually Transmitted Disease: No HIV/AIDS: No Genitourinary: No Gastrointestinal: No Musculoskeletal: Yes (SPINAL STENOSIS) Degenerate Disk Disease, Arthritis Endocrine: Yes (THYROID NODULES) Loss of Vision: Bilateral Hearing Impairment: Denies Cancer: Yes (SKIN X 36) Skin Psychosocial: Yes Anxiety Integumentary: No Blood Disorders: No Adverse Reaction/Blood Tranf: No (N/A) Family Medical History Reviewed Nursing Family Hx Respiratory disorder No Pertinent Family Hx Physical Exam Vital Signs Vital Signs - First Documented 08/06/18 07:10 Temp 97.2 Pulse 58 Resp 18 B/P (MAP) 139/78 (98) Pulse Ox 98 Capillary Refill : Less Than 3 Seconds Height, Weight, BMI Height: 5'9.00" Weight: 148lbs. 0.0oz. 67.668184yl; 22.6 BMI Method:Stated General Appearance: No Apparent Distress, WD/WN HEENT: PERRL/EOMI, Pharynx Normal Neck: Non Tender, Supple Respiratory: Lungs Clear, Normal Breath Sounds Cardiovascular: Regular Rate, Rhythm, No Murmur Gastrointestinal: Non Tender, Soft Back: Normal Inspection, No CVA Tenderness, No Vertebral Tenderness Extremity: Normal Range of Motion, Non Tender Neurologic/Psychiatric: Alert, Oriented x3, Other (appears drowsy) Skin: Normal Color, Warm/Dry Procedures/Interventions Date of ETT Placement: April 22, 2018 Progress/Results/Core Measures Suspected Sepsis Recent Fever Within 48 Hours: No Infection Criteria Present: None New/Unexplained Altered Menta: No Sepsis Screen: No Definite Risk SIRS Temperature:97.2 Pulse: 58 Respiratory Rate: 18 Laboratory Tests 08/06/18 07:10: White Blood Count 6.7 Blood Pressure 139 /78 Mean: 98 Laboratory Tests 08/06/18 07:10: Platelet Count 236 08/06/18 07:43: Creatinine 0.78, Total Bilirubin 0.3 Results/Orders Lab Results Laboratory Tests Test 08/06/18 07:10 08/06/18 07:43 08/06/18 07:45 Range/Units White Blood Count 6.7 4.3-11.0 10^3/uL Red Blood Count 4.50 4.35-5.85 10^6/uL Hemoglobin 14.0 11.5-16.0 G/DL Hematocrit 41 35-52 % Mean Corpuscular Volume 91 80-99 FL Mean Corpuscular Hemoglobin 31 25-34 PG Mean Corpuscular Hemoglobin Concent 34 32-36 G/DL Red Cell Distribution Width 12.8 10.0-14.5 % Platelet Count 236 130-400 10^3/uL Mean Platelet Volume 9.8 7.4-10.4 FL Neutrophils (%) (Auto) 59 42-75 % Lymphocytes (%) (Auto) 27 12-44 % Monocytes (%) (Auto) 10 0-12 % Eosinophils (%) (Auto) 3 0-10 % Basophils (%) (Auto) 2 0-10 % Neutrophils # (Auto) 3.9 1.8-7.8 X 10^3 Lymphocytes # (Auto) 1.8 1.0-4.0 X 10^3 Monocytes # (Auto) 0.7 0.0-1.0 X 10^3 Eosinophils # (Auto) 0.2 0.0-0.3 10^3/uL Basophils # (Auto) 0.1 0.0-0.1 10^3/uL D-Dimer 0.84 H 0.00-0.49 UG/ML Sodium Level 134 L 135-145 MMOL/L Potassium Level 4.1 3.6-5.0 MMOL/L Chloride Level 100 98-107 MMOL/L Carbon Dioxide Level 28 21-32 MMOL/L Anion Gap 6 5-14 MMOL/L Blood Urea Nitrogen 9 7-18 MG/DL Creatinine 0.78 0.60-1.30 MG/DL Estimat Glomerular Filtration Rate > 60 BUN/Creatinine Ratio 12 Glucose Level 96 70-105 MG/DL Calcium Level 8.8 8.5-10.1 MG/DL Corrected Calcium 9.0 8.5-10.1 MG/DL Magnesium Level 2.1 1.8-2.4 MG/DL Total Bilirubin 0.3 0.1-1.0 MG/DL Aspartate Amino Transf (AST/SGOT) 17 5-34 U/L Alanine Aminotransferase (ALT/SGPT) 11 0-55 U/L Alkaline Phosphatase 53 40-136 U/L Troponin I < 0.30 <0.30 NG/ML C-Reactive Protein High Sensitivity 0.02 0.00-0.50 MG/DL Total Protein 6.1 L 6.4-8.2 GM/DL Albumin 3.8 3.2-4.5 GM/DL Free Thyroxine 1.26 0.70-1.48 NG/DL TSH [place] Testing 0.22 L 0.35-4.94 UIU/ML Urine Color YELLOW Urine Clarity CLEAR Urine pH 7 5-9 Urine Specific [place] 1.010 L 1.016-1.022 Urine Protein NEGATIVE NEGATIVE Urine Glucose (UA) NEGATIVE NEGATIVE Urine Ketones NEGATIVE NEGATIVE Urine Nitrite NEGATIVE NEGATIVE Urine Bilirubin NEGATIVE NEGATIVE Urine Urobilinogen NORMAL NORMAL MG/DL Urine Leukocyte Esterase NEGATIVE NEGATIVE Urine RBC (Auto) NEGATIVE NEGATIVE Urine RBC NONE /HPF Urine WBC NONE /HPF Urine Squamous Epithelial Cells RARE /HPF Urine Crystals NONE /LPF Urine Bacteria NEGATIVE /HPF Urine Casts NONE /LPF Urine Mucus NEGATIVE /LPF Urine Culture Indicated NO My Orders Orders - CAR SALCEDO MD Cbc With Automated Diff (08/06/18 07:24) Comprehensive Metabolic Panel (08/06/18 07:24) Hs C Reactive Protein (08/06/18 07:24) Fibrin Degradation Products (08/06/18 07:24) Magnesium (08/06/18 07:24) Thyroid Analyzer (08/06/18 07:24) Troponin I (08/06/18 07:24) Ua Culture If Indicated (08/06/18 07:24) Ekg Tracing (08/06/18 07:24) Chest 1 View, Ap/Pa Only (08/06/18 07:24) Saline Lock/Iv-Start (08/06/18 07:24) Ns Iv 500 Ml (Sodium Chloride 0.9%) (08/06/18 07:24) Free T4 (Free Thyroxine) (08/06/18 07:43) Medications Given in ED Current Medications Medications Dose Ordered Sig/Sho Route Start Time Stop Time Status Last Admin Dose Admin Sodium Chloride 500 ml @ 0 mls/hr Q0M ONCE IV 08/06/18 07:24 08/06/18 07:27 DC 08/06/18 07:55 500 MLS/HR Vital Signs/I&O 08/06/18 07:10 Temp 97.2 Pulse 58 Resp 18 B/P (MAP) 139/78 (98) Pulse Ox 98 Capillary Refill : Less Than 3 Seconds Blood Pressure Mean: 98 Progress Note : Progress Note Seen and evaluated. IV by EMS. Labs, UA, chest x-ray and EKG ordered. Normal saline 500 mL bolus. Monitor patient. 0815: Patient was seen with Dr. Soliz. She is doing better overall. We will monitor. If she continues to improve, likely discharged home. We will check her for weakness and ability to walk after fluids are complete. 0940: Walker was given and patient is doing better. Her sister and passed her are ,@ bedside. There is some concern that she may have taken too much of her medicine last night that she is doing much better now. All are in agreement with discharge home. Dr. Soliz will see her tomorrow. I did discuss with her about consideration for physical therapy and she can talk with Dr. Soliz about that. I will send a copy of the chart to him. Discharged home with return precautions. Patient verbalize understanding instructions and agreement with plan. ECG Initial ECG Impression Date: Aug 06, 2018 Initial ECG Impression Time: 07:42 Initial ECG Rate: 57 Initial ECG Rhythm: Normal Sinus Initial ECG Comparisson: Unchanged Comment Sinus rhythm with left axis deviation. No evidence of ST elevation [place]. Similar to previous of 07/27/14. Interpreted by me. Diagnostic Imaging Diagonstic Imaging: Xray Plain Films/CT/US/NM/MRI: chest Comments NAME: MADINA WIGGINS [facility] REC#: [id number] PT STATUS: REG ER : 1945 PHYSICIAN: CAR SALCEDO MD ADMIT DATE: 08/06/18/ER Signed Date of Exam: 08/06/18 CHEST 1 VIEW, AP/PA ONLY INDICATION: New-onset confusion and weakness Portable chest 7:33 AM Heart size and pulmonary vascularity are normal. Lungs are clear. There are no effusions or pneumothoraces. IMPRESSION: Negative chest Dictated by: Dictated on workstation # [id number] Dict: 08/06/18 0743 Trans: 08/06/18 0749 Interpreted by: CAR JONES MD Electronically signed by: CAR JONES MD 08/06/18 0749 Departure Impression Primary Impression: Leg weakness, bilateral Disposition: 01 HOME, SELF-CARE Condition: Improved Departure-Patient Inst. Decision time for Depature: 09:52 Referrals: DAKOTA SOLIZ DO (PCP/Family) Primary Care Physician Patient Instructions: Generalized Weakness (DC), Lower Extremity Muscle Strain (DC) Add. Discharge Instructions: All discharge instructions reviewed with patient and/or family. Voiced understanding. Continue home medications as directed. Carefully take your pain medicine as they may be part of the problem is causing your drowsiness. Follow-up with Dr. Soliz tomorrow at 9 a.m. Use the walker as instructed. He should talk with Dr. Soliz about physical therapy. Return for worse pain, fever, vomiting, weakness, breathing problems or other concerns as needed. Copy Copies To 1: DAKOTA SOLIZ TIMOTHY D MD Aug 06, 2018 08:27
[2018-08-06 08:28] LABS: TSH (THYROID ANALYZER) 0.22 UIU/ML (0.35-4.94)
[2018-08-06 09:00] LABS: FREE T4 (FREE THYROXINE) 1.26 NG/DL (0.70-1.48)
[2018-08-06 11:27] VITALS: BP 141/61
== END 2018-08-06 11:27 | disposition home or self-care (01) ==
LOC: EDUNIT# 07:10 → ER 07:11
DX: M62.81 Muscle weakness (generalized) (principal); R41.0 Disorientation, unspecified; I25.10 Atherosclerotic heart disease of native coronary artery without angina pectoris; I10 Essential (primary) hypertension; E78.00 Pure hypercholesterolemia, unspecified; F41.9 Anxiety disorder, unspecified; I25.2 Old myocardial infarction; F17.210 Nicotine dependence, cigarettes, uncomplicated; Z85.828 Personal history of other malignant neoplasm of skin; Z95.5 Presence of coronary angioplasty implant and graft; Z90.89 Acquired absence of other organs; Z98.51 Tubal ligation status; Z79.82 Long term (current) use of aspirin
CPT/HCPCS: 36415; 71045; 80053; 81000; 83735; 84439; 84443; 84484; 85025; 85379; 86141; 93005; 96360

== ENCOUNTER 2018-08-10 09:50 | Emergency (ER) | payer MEDICARE ==
[~2018-08-10] VITALS: Ht 177.8 cm; Wt 68.5 kg
[2018-08-10] MEDS ORDERED: ASPIRIN 81 MG CHEW (CHILDREN'S ASA) ONE (09:58)
[2018-08-10] MEDS ORDERED: NITROGLYCERIN 0.4 MG SL TABS BTL 25'S SL ONE (09:58)
--- OUTSIDE RECORDS SUMMARY | 2018-08-10 10:02 | XMS REPORT | Continuity of Care Document ---
Author Author [facility] Organization [facility] Address Unknown Phone Unavailable Allergies Active Description Code Type Severity Reaction Onset Reported/Identified Relationship to Patient Clinical Status Yes No Known Drug Allergies [id number] Drug Allergy Unknown N/A 04/20/2018 Medications There is no data. Problems Date Dx Coded Attending Type Code Diagnosis Diagnosed By 10/30/1021 DAKOTA SOLIZ DO Ot M54.16 RADICULOPATHY, LUMBAR REGION 03/20/2012 Ot 272.4 HYPERLIPIDEMIA NEC/NOS 03/20/2012 Ot 300.00 ANXIETY STATE NOS 03/20/2012 Ot 305.1 TOBACCO USE DISORDER 03/20/2012 Ot 401.9 HYPERTENSION NOS 03/20/2012 Ot 410.91 ACUTE MYOCARD INFARCT,UNSPEC SITE,INITIA 03/20/2012 Ot 414.01 CORONARY ATHEROSCLEROSIS OF [place] CORON 03/20/2012 Ot 428.0 CONGESTIVE HEART FAILURE NOS 03/20/2012 Ot 428.21 ACUTE SYSTOLIC HEART FAILURE 03/20/2012 Ot V17.49 FAMILY HISTORY OF OTHER CARDIOVASCULAR D 04/02/2012 Ot 272.4 HYPERLIPIDEMIA NEC/NOS 04/02/2012 Ot 305.1 TOBACCO USE DISORDER 04/02/2012 Ot 401.9 HYPERTENSION NOS 04/02/2012 Ot 412 OLD MYOCARDIAL INFARCT 04/02/2012 Ot 414.01 CORONARY ATHEROSCLEROSIS OF [place] CORON 04/02/2012 Ot V45.82 PERCUTANEOUS TRANSLUM CORON [...] BURNETT MD Ot 414.01 CORONARY ATHEROSCLEROSIS OF [place] CORON 04/08/2013 ABBEY BURNETT MD Ot 427.5 [...] BURNETT MD Ot 414.01 CORONARY ATHEROSCLEROSIS OF [place] CORON 07/27/2014 ABBEY BURNETT MD Ot 786.50 [...] ZHAO Ot I25.10 ATHSCL HEART DISEASE OF [place] CORONARY 03/29/2016 HARSH ZHAO Ot Z72.0 TOBACCO USE 04/01/2016 HARSH ZHAO Ot E78.2 MIXED HYPERLIPIDEMIA 04/01/2016 HARSH ZHAO Ot I10 ESSENTIAL (PRIMARY) HYPERTENSION 04/01/2016 HARSH ZHAO Ot I25.10 ATHSCL HEART DISEASE OF [place] CORONARY 04/01/2016 HARSH ZHAO Ot Z72.0 TOBACCO USE 04/02/2016 HARSH ZHAO Ot E78.2 MIXED HYPERLIPIDEMIA 04/02/2016 HARSH ZHAO Ot I10 ESSENTIAL (PRIMARY) HYPERTENSION 04/02/2016 HARSH ZHAO Ot I25.10 ATHSCL HEART DISEASE OF [place] CORONARY 04/02/2016 HARSH ZHAO Ot Z72.0 TOBACCO USE 04/03/2016 HARSH ZHAO Ot E78.2 MIXED HYPERLIPIDEMIA 04/03/2016 HARSH ZHAO Ot I10 ESSENTIAL (PRIMARY) HYPERTENSION 04/03/2016 HARSH ZHAO Ot I25.10 ATHSCL HEART DISEASE OF [place] CORONARY 04/03/2016 HARSH ZHAO Ot Z72.0 TOBACCO USE 04/07/2016 HARSH ZHAO Ot E78.2 MIXED HYPERLIPIDEMIA 04/07/2016 HARSH ZHAO K Ot I10 ESSENTIAL (PRIMARY) HYPERTENSION 04/07/2016 HARSH ZHAO Ot I25.10 ATHSCL HEART DISEASE OF [place] CORONARY 04/07/2016 HARSH ZHAO Ot Z72.0 TOBACCO USE 04/09/2016 HORTENCIA LIU, ABBEY John Ot I65.23 OCCLUSION AND STENOSIS OF BILATERAL [place] 04/18/2016 HARSH ZHAO Ot E78.2 MIXED HYPERLIPIDEMIA 04/18/2016 HARSH ZHAO Ot I10 ESSENTIAL (PRIMARY) HYPERTENSION 04/18/2016 HARSH ZHAO Ot I25.10 ATHSCL HEART DISEASE OF [place] CORONARY 04/18/2016 HARSH ZHAO Ot Z72.0 TOBACCO USE 04/23/2016 HARSH ZHAO Ot E78.2 MIXED HYPERLIPIDEMIA 04/23/2016 HARSH ZHAO Ot I10 ESSENTIAL (PRIMARY) HYPERTENSION 04/23/2016 HARSH ZHAO Ot I25.10 ATHSCL HEART DISEASE OF [place] CORONARY 04/23/2016 HARSH ZHAO Ot Z72.0 TOBACCO [...] CORON ATHEROSCLER NOS TYPE VESSEL, NATIV 09/19/2016 AHRSH ZHAO Ot 272.4 HYPERLIPIDEMIA NEC/NOS 09/19/2016 HARSH [...] ZHAO Ot I25.10 ATHSCL HEART DISEASE OF [place] CORONARY 09/19/2016 HARSH ZHAO Ot Z72.0 TOBACCO USE 09/19/2016 HARSH ZHAO Ot E78.2 MIXED HYPERLIPIDEMIA 09/19/2016 HARSH ZHAO Ot I10 ESSENTIAL (PRIMARY) HYPERTENSION 09/19/2016 HARSH ZHAO Ot I25.10 ATHSCL HEART DISEASE OF [place] CORONARY 09/19/2016 HARSH ZHAO Ot Z72.0 TOBACCO USE 09/19/2016 HARSH ZHAO Ot E78.2 MIXED HYPERLIPIDEMIA 09/19/2016 HARSH ZHAO Ot I10 ESSENTIAL (PRIMARY) HYPERTENSION 09/19/2016 HARSH ZHAO Ot I25.10 ATHSCL HEART DISEASE OF [place] CORONARY 09/19/2016 HARSH ZHAO Ot Z72.0 TOBACCO USE 09/19/2016 HARSH ZHAO Ot Z86.39 PERSONAL HISTORY OF ENDO, NUTRITIONAL AN 09/24/2016 LAMONT ROSEN, HARSH Ortiz Ot E78.2 MIXED HYPERLIPIDEMIA 09/24/2016 HARSH ZHAO Ot I10 ESSENTIAL (PRIMARY) HYPERTENSION 09/24/2016 HARSH ZHAO Ot I25.10 ATHSCL HEART DISEASE OF [place] CORONARY 09/24/2016 HARSH ZHAO Ot Z72.0 TOBACCO USE 09/24/2016 HARSH ZHAO Ot Z86.39 PERSONAL HISTORY OF ENDO, NUTRITIONAL AN 10/09/2016 GELLENDER DO, DAKOTA Watkins Ot E04.9 NONTOXIC GOITER, UNSPECIFIED 10/09/2016 GELLENDER DO, DAKOTA Watkins Ot E04.9 NONTOXIC GOITER, UNSPECIFIED 10/10/2016 HARSH ZHAO Ot E78.2 MIXED HYPERLIPIDEMIA 10/10/2016 HARSH ZHAO Ot I10 ESSENTIAL (PRIMARY) HYPERTENSION 10/10/2016 HARSH ZHAO Ot I25.10 ATHSCL HEART DISEASE OF [place] CORONARY 10/10/2016 HARSH ZHAO Ot Z72.0 TOBACCO [...] LEG 01/02/2017 ROMAINE MACHADO DO Ot I70.203 [facility] ATHNDL [place] ARTERIES OF [facility] 01/02/2017 ROMAINE MACHADO DO Ot N28.1 CYST OF KIDNEY, ACQUIRED 01/02/2017 ROMAINE MACHADO DO Ot I70.203 [facility] ATHNDL [place] ARTERIES OF [facility] 01/02/2017 ROMAINE MACHADO DO Ot N28.1 CYST OF KIDNEY, ACQUIRED 01/02/2017 DAKOTA SOLIZ DO Ot M79.605 PAIN IN LEFT LEG 01/23/2017 ROMAINE MACHADO DO Ot I70.203 [facility] ATHNDL [place] [facility]IES OF [facility] 01/23/2017 ROMAINE MACHADO DO Ot N28.1 CYST [...] ATHEROSCLER NOS TYPE VESSEL, NATIV 12/29/2017 HARSH ZHOA Ot 272.4 HYPERLIPIDEMIA NEC/NOS 12/29/2017 HARSH ZHAO [...] ZHAO Ot I25.10 ATHSCL HEART DISEASE OF [place] CORONARY 12/29/2017 HARSH ZHAO Ot Z72.0 TOBACCO USE 12/29/2017 HARSH ZHAO Ot E78.2 MIXED HYPERLIPIDEMIA 12/29/2017 HARSH ZHAO Ot I10 ESSENTIAL (PRIMARY) HYPERTENSION 12/29/2017 HARSH ZHAO Ot I25.10 ATHSCL HEART DISEASE OF [place] CORONARY 12/29/2017 HARSH ZHAO Ot Z72.0 TOBACCO USE 12/29/2017 HARSH ZHAO Ot E78.2 MIXED HYPERLIPIDEMIA 12/29/2017 HARSH ZHAO Ot I10 ESSENTIAL (PRIMARY) HYPERTENSION 12/29/2017 HARSH ZHAO Ot I25.10 ATHSCL HEART DISEASE OF [place] CORONARY 12/29/2017 HARSH ZHAO Ot Z72.0 TOBACCO [...] ROMAINE MACHADO DO Ot I70.203 UNSP ATHSCL [place] ARTERIES OF [place] 12/29/2017 ROMAINE MACHADO DO [...] MD Ot I25.10 ATHSCL HEART DISEASE OF [place] CORONARY 03/23/2018 NEGAR SINGER MD Ot I25.2 OLD MYOCARDIAL INFARCTION 03/23/2018 NEGAR SINGER MD Ot Z12.11 ENCOUNTER FOR SCREENING FOR MALIGNANT NE 03/23/2018 NEGAR SINGER MD Ot Z79.899 OTHER LONG-TERM (CURRENT) DRUG THERAPY 03/23/2018 NEGAR SINGER MD Ot Z83.71 FAMILY HISTORY OF COLONIC POLYPS 03/25/2018 NEGAR SINGER MD Ot E04.1 NONTOXIC SINGLE THYROID NODULE 03/25/2018 NEGAR SINGER MD Ot E78.00 PURE HYPERCHOLESTEROLEMIA, UNSPECIFIED 03/25/2018 NEGAR SINGER MD Ot F41.9 ANXIETY DISORDER, UNSPECIFIED 03/25/2018 NEGAR SINGER MD M Ot I10 ESSENTIAL (PRIMARY) HYPERTENSION 03/25/2018 NEGAR SINGER MD Ot I25.10 ATHSCL HEART DISEASE OF [place] CORONARY 03/25/2018 NEGAR SINGER MD Ot I25.2 OLD MYOCARDIAL INFARCTION 03/25/2018 NEGAR SINGER MD Ot Z12.11 ENCOUNTER FOR SCREENING FOR MALIGNANT NE 03/25/2018 LUCRECIA LIU, NEGAR Hall Ot Z79.899 OTHER ARCHIVES SPECIALIST (CURRENT) DRUG THERAPY 03/25/2018 LUCRECIA LIU, [...] MD Ot I25.10 ATHSCL HEART DISEASE OF [place] CORONARY 03/29/2018 NEGAR SINGER MD Ot I25.2 OLD MYOCARDIAL INFARCTION 03/29/2018 NEGAR SINGER MD Ot Z12.11 ENCOUNTER FOR SCREENING FOR MALIGNANT NE 03/29/2018 LUCRECIA LIU, NEGAR Hall Ot Z79.899 OTHER LONG-TERM (CURRENT) DRUG THERAPY 03/29/2018 NEGAR SINGER MD [...] ZHAO Ot I25.10 ATHSCL HEART DISEASE OF [place] CORONARY 03/30/2018 HARSH ZHAO Ot Z72.0 TOBACCO USE 03/30/2018 HARSH ZHAO Ot E78.2 MIXED HYPERLIPIDEMIA 03/30/2018 HARSH ZHAO Ot I10 ESSENTIAL (PRIMARY) HYPERTENSION 03/30/2018 HARSH ZHAO Ot I25.10 ATHSCL HEART DISEASE OF [place] CORONARY 03/30/2018 HARSH ZHAO Ot Z72.0 TOBACCO USE 03/30/2018 HARSH ZHAO Ot E78.2 MIXED HYPERLIPIDEMIA 03/30/2018 HARSH ZHAO Ot I10 ESSENTIAL (PRIMARY) HYPERTENSION 03/30/2018 HARSH ZHAO Ot I25.10 ATHSCL HEART DISEASE OF [place] CORONARY 03/30/2018 HARSH ZHAO Ot Z72.0 TOBACCO [...] LOPEZ ROMAINE Rafael Ot I70.203 UNSP ATHSCL [place] ARTERIES OF [place] 03/30/2018 JEANNETTE LOPEZ ROMAINE [...] GROVE Ot I25.10 ATHSCL HEART DISEASE OF [place] CORONARY 03/30/2018 YVETTE GROVE Ot I25.2 OLD MYOCARDIAL INFARCTION 03/30/2018 YVETTE GROVE Ot S41.111A LACERATION W/O FOREIGN BODY OF RIGHT UPP 03/30/2018 YVETTE GROVE Ot S50.11XA CONTUSION OF RIGHT FOREARM, INITIAL ENCO 03/30/2018 YVETTE GROVE Ot W28.XXXA CONTACT WITH [employer], INITIAL 03/30/2018 YVETTE GROVE Ot Z79.82 ARCHIVES SPECIALIST (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 03/30/2018 YVETTE [...] GROVE Ot I25.10 ATHSCL HEART DISEASE OF [place] CORONARY 04/01/2018 YVETTE GROVE Ot I25.2 OLD MYOCARDIAL INFARCTION 04/01/2018 YVETTE GROVE Ot S41.111A LACERATION W/O FOREIGN BODY OF RIGHT UPP 04/01/2018 YVETTE GROVE Ot S50.11XA CONTUSION OF RIGHT FOREARM, INITIAL ENCO 04/01/2018 YVETTE GROVE Ot W28.XXXA CONTACT WITH POWERED [employer] WHEEL HAND FILER, INITIAL 04/01/2018 YVETTE GROVE Ot Z79.82 LONG-TERM (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 04/01/2018 YVETTE GROVE [...] GROVE Ot I25.10 ATHSCL HEART DISEASE OF [place] CORONARY 04/05/2018 YVETTE GROVE Ot I25.2 OLD MYOCARDIAL INFARCTION 04/05/2018 YVETTE GROVE Ot S41.111A LACERATION W/O FOREIGN BODY OF RIGHT UPP 04/05/2018 YVETTE GROVE Ot S50.11XA CONTUSION OF RIGHT FOREARM, INITIAL ENCO 04/05/2018 YVETTE GROVE Ot W28.XXXA CONTACT WITH [employer], INITIAL 04/05/2018 YVETTE GROVE Ot Z79.82 LONG-TERM (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 04/05/2018 YVETTE GROVE Ot Z86.39 PERSONAL HISTORY OF ENDO, NUTRITIONAL AN 04/05/2018 YVETTE GROVE Ot Z90.49 ACQUIRED ABSENCE OF OTHER SPECIFIED PART 04/05/2018 YVETTE GROVE Ot Z95.5 PRESENCE OF CORONARY ANGIOPLASTY IMPLANT 04/05/2018 YVETTE GROVE Ot Z98.51 TUBAL LIGATION STATUS 04/20/2018 SASKIA JOYNER Ot I65.23 OCCLUSION AND STENOSIS OF BILATERAL TS[place] 04/20/2018 LUCRECIA LIU, NEGAR Hall Ot Z01.818 ENCOUNTER FOR OTHER PREPROCEDURAL EXAMIN 04/22/2018 NEGAR SINGER MD Ot Z01.818 ENCOUNTER FOR OTHER PREPROCEDURAL EXAMIN 04/24/2018 NEGAR SINGER MD Ot C44.90 UNSPECIFIED MALIGNANT NEOPLASM OF SKIN, 04/24/2018 NEGAR SINGER MD Ot C73 MALIGNANT NEOPLASM OF THYROID GLAND 04/24/2018 NEGAR SINGER MD Ot E78.00 PURE HYPERCHOLESTEROLEMIA, UNSPECIFIED 04/24/2018 LUCRECIA LIU, NEGAR Hall Ot E89.820 POSTPROC HEMATOMA OF AN ENDO SYS ORG FOL 04/24/2018 LUCRECIA LIU, NEGAR Hall Ot F17.210 NICOTINE DEPENDENCE, CIGARETTES, UNCOMPL 04/24/2018 LUCRECIA LIU, NEGAR Hall Ot F41.9 ANXIETY DISORDER, UNSPECIFIED 04/24/2018 LUCRECIA LIU, NEGAR Hall Ot I10 ESSENTIAL (PRIMARY) HYPERTENSION 04/24/2018 LUCRECIA LIU, NEGAR Hall Ot I25.10 ATHSCL HEART DISEASE OF [place] CORONARY 04/24/2018 NEGAR SINGER MD Ot I25.2 OLD MYOCARDIAL INFARCTION 04/24/2018 NEGAR SINGER MD Ot I95.9 HYPOTENSION, UNSPECIFIED 04/24/2018 NEGAR SINGER MD Ot I96 GANGRENE, NOT ELSEWHERE CLASSIFIED 04/24/2018 LUCRECIA LIU, NEGAR Hall Ot J96.00 ACUTE RESPIRATORY FAILURE, UNSP W HYPOXI 04/24/2018 NEGAR SINGER MD Ot M19.91 PRIMARY OSTEOARTHRITIS, UNSPECIFIED SITE 04/24/2018 LUCRECIA LIU, NEGAR Hall Ot Z95.5 PRESENCE OF CORONARY ANGIOPLASTY IMPLANT 04/25/2018 LUCRECIA LIU, NEGAR Hall Ot C44.90 UNSPECIFIED MALIGNANT NEOPLASM OF SKIN, 04/25/2018 NEGAR SINGER MD Ot C73 MALIGNANT NEOPLASM OF THYROID GLAND 04/25/2018 LUCRECIA LIU, NEGAR Hall Ot E04.2 NONTOXIC MULTINODULAR GOITER 04/25/2018 NEGAR SINGER MD Ot E78.00 PURE HYPERCHOLESTEROLEMIA, UNSPECIFIED 04/25/2018 NEGAR SINGER MD Ot E87.6 HYPOKALEMIA 04/25/2018 NEGAR SINGER MD Ot E89.810 POSTPROC HEMOR OF AN ENDO SYS ORG FOL AN 04/25/2018 NEGAR SINGER MD Ot E89.820 POSTPROC HEMATOMA OF AN ENDO SYS ORG FOL 04/25/2018 NEGAR SINGER MD Ot F17.210 NICOTINE DEPENDENCE, CIGARETTES, UNCOMPL 04/25/2018 NEGAR SINGER MD Ot F41.9 ANXIETY DISORDER, UNSPECIFIED 04/25/2018 NEGAR SINGER MD Ot I10 ESSENTIAL (PRIMARY) HYPERTENSION 04/25/2018 NEGAR SINGER MD Ot I25.10 ATHSCL HEART DISEASE OF [place] CORONARY 04/25/2018 NEGAR SINGER MD Ot I25.2 OLD MYOCARDIAL INFARCTION 04/25/2018 NEGAR SINGER MD Ot I95.9 HYPOTENSION, UNSPECIFIED 04/25/2018 NEGAR SINGER MD Ot I96 GANGRENE, NOT ELSEWHERE CLASSIFIED 04/25/2018 NEGAR SINGER MD Ot J96.00 ACUTE RESPIRATORY FAILURE, UNSP W HYPOXI 04/25/2018 NEGAR SINGER MD Ot M19.91 PRIMARY OSTEOARTHRITIS, UNSPECIFIED SITE 04/25/2018 NEGAR SINGER MD Ot S51.811A LACERATION W/O FOREIGN BODY OF RIGHT FOR 04/25/2018 NEGAR SINGER MD Ot W19.XXXA UNSPECIFIED FALL, INITIAL ENCOUNTER 04/25/2018 NEGAR SINGER MD Ot Z95.5 PRESENCE OF CORONARY ANGIOPLASTY IMPLANT 05/05/2018 NEGAR SINGER MD Ot C44.90 UNSPECIFIED MALIGNANT NEOPLASM OF SKIN, 05/05/2018 NEGAR SINGER MD Ot C73 MALIGNANT NEOPLASM OF THYROID GLAND 05/05/2018 NEGAR SINGER MD Ot E04.2 NONTOXIC MULTINODULAR GOITER 05/05/2018 NEGAR SINGER MD Ot E78.00 PURE HYPERCHOLESTEROLEMIA, UNSPECIFIED 05/05/2018 NEGAR SINGER MD Ot E87.6 HYPOKALEMIA 05/05/2018 NEGAR SINGER MD Ot E89.810 POSTPROC HEMOR OF AN ENDO SYS ORG FOL AN 05/05/2018 NEGAR SINGER MD Ot E89.820 POSTPROC HEMATOMA OF AN ENDO SYS ORG FOL 05/05/2018 NEGAR SINGER MD Ot F17.210 NICOTINE DEPENDENCE, CIGARETTES, UNCOMPL 05/05/2018 NEGAR SINGER MD Ot F41.9 ANXIETY DISORDER, UNSPECIFIED 05/05/2018 NEGAR SINGER MD Ot I10 ESSENTIAL (PRIMARY) HYPERTENSION 05/05/2018 NEGAR SINGER MD Ot I25.10 ATHSCL HEART DISEASE OF [place] CORONARY 05/05/2018 NEGAR SINGER MD Ot I25.2 OLD MYOCARDIAL INFARCTION 05/05/2018 NEGAR SINGER MD Ot I95.9 HYPOTENSION, UNSPECIFIED 05/05/2018 NEGAR SINGER MD Ot I96 GANGRENE, NOT ELSEWHERE CLASSIFIED 05/05/2018 NEGAR SINGER MD Ot J96.00 ACUTE RESPIRATORY FAILURE, UNSP W HYPOXI 05/05/2018 NEGAR SINGER MD Ot M19.91 PRIMARY OSTEOARTHRITIS, UNSPECIFIED SITE 05/05/2018 NEGAR SINGER MD Ot S51.811A LACERATION W/O FOREIGN BODY OF RIGHT FOR 05/05/2018 NEGAR SINGER MD Ot W19.XXXA UNSPECIFIED FALL, INITIAL ENCOUNTER 05/05/2018 NEGAR SINGER MD Ot Z95.5 PRESENCE OF CORONARY ANGIOPLASTY IMPLANT 05/05/2018 NEGAR SINGER MD Ot C44.90 UNSPECIFIED MALIGNANT NEOPLASM OF SKIN, 05/05/2018 NEGAR SINGER MD Ot C73 MALIGNANT NEOPLASM OF THYROID GLAND 05/05/2018 NEGAR SINGER MD Ot E04.2 NONTOXIC MULTINODULAR GOITER 05/05/2018 NEGAR SINGER MD Ot E78.00 PURE HYPERCHOLESTEROLEMIA, UNSPECIFIED 05/05/2018 NEGAR SINGER MD Ot E87.6 HYPOKALEMIA 05/05/2018 NEGAR SINGER MD Ot E89.810 POSTPROC HEMOR OF AN ENDO SYS ORG FOL AN 05/05/2018 NEGAR SINGER MD Ot E89.820 POSTPROC HEMATOMA OF AN ENDO SYS ORG FOL 05/05/2018 NEGAR SINGER MD Ot F17.210 NICOTINE DEPENDENCE, CIGARETTES, UNCOMPL 05/05/2018 NEGAR SINGER MD Ot F41.9 ANXIETY DISORDER, UNSPECIFIED 05/05/2018 NEGAR SINGER MD Ot I10 ESSENTIAL (PRIMARY) HYPERTENSION 05/05/2018 NEGAR SINGER MD Ot I25.10 ATHSCL HEART DISEASE OF [place] CORONARY 05/05/2018 NEGAR SINGER MD Ot I25.2 OLD MYOCARDIAL INFARCTION 05/05/2018 NEGAR SINGER MD Ot I95.9 HYPOTENSION, UNSPECIFIED 05/05/2018 NEGAR ISNGER MD Ot I96 GANGRENE, NOT ELSEWHERE CLASSIFIED 05/05/2018 NEGAR SINGER MD Ot J96.00 ACUTE RESPIRATORY FAILURE, UNSP W HYPOXI 05/05/2018 LUCRECIA LIU, NEGAR Hall Ot M19.91 PRIMARY OSTEOARTHRITIS, UNSPECIFIED SITE 05/05/2018 LUCRECIA LIU, NEGAR Hall Ot S51.811A LACERATION W/O FOREIGN BODY OF RIGHT FOR 05/05/2018 LUCRECIA LIU, NEGAR Hall Ot W19.XXXA UNSPECIFIED FALL, INITIAL ENCOUNTER 05/05/2018 LUCRECIA LIU, NEGAR Hall Ot Z95.5 PRESENCE OF CORONARY ANGIOPLASTY IMPLANT 07/17/2018 ABBEY BURNETT MD Ot E78.5 HYPERLIPIDEMIA, UNSPECIFIED 07/17/2018 ABBEY BURNETT MD Ot I08.3 COMB RHEUMATIC DISORD OF MITRAL, AORTIC 07/17/2018 ABBEY BURNETT MD Ot I10 ESSENTIAL (PRIMARY) HYPERTENSION 07/17/2018 ABBEY BURNETT MD Ot I25.10 ATHSCL HEART DISEASE OF [place] CORONARY 07/17/2018 ABBEY BURNETT MD Ot R07.9 CHEST PAIN, UNSPECIFIED 07/17/2018 ABBEY BURNETT MD Ot Z72.0 TOBACCO USE 07/24/2018 DAKOTA SOLIZ DO Ot M41.86 OTHER FORMS OF SCOLIOSIS, LUMBAR REGION 07/24/2018 DAKOTA SOLIZ DO Ot M47.816 SPONDYLOSIS W/O MYELOPATHY OR RADICULOPA 07/24/2018 DAKOTA SOLIZ DO Ot M79.605 PAIN IN LEFT LEG 07/24/2018 DAKOTA SOLIZ DO Ot M99.73 CONN TISS AND DISC STENOS OF INTVRT FORA 07/24/2018 ABBEY BURNETT MD Ot I10 ESSENTIAL (PRIMARY) HYPERTENSION 07/24/2018 ABBEY BURNETT MD Ot R07.9 CHEST PAIN, UNSPECIFIED 07/27/2018 DAKOTA SOLIZ DO Ot M41.86 OTHER FORMS OF SCOLIOSIS, LUMBAR REGION 07/27/2018 DAKOTA SOLIZ DO Ot M47.816 SPONDYLOSIS W/O MYELOPATHY OR RADICULOPA 07/27/2018 DAKOTA SOLIZ DO Ot M48.061 SPINAL STENOSIS, LUMBAR REGION WITHOUT N 07/27/2018 DAKOTA SOLIZ DO Ot M51.26 OTHER INTERVERTEBRAL DISC DISPLACEMENT, 07/27/2018 DAKOTA SOLIZ DO Ot M51.36 OTHER INTERVERTEBRAL DISC DEGENERATION, 07/27/2018 INDYCEANTOINEDAKOTA Ot M79.605 PAIN IN LEFT LEG 07/27/2018 TRESNAM DAKOTA LOPEZ Ot M99.73 CONN TISS AND DISC STENOS OF INTVRT FORA Procedures Code Description Performed By Performed On 00.40 03/17/2012 00.46 03/17/2012 00.66 03/17/2012 36.07 03/17/2012 37.22 03/17/2012 88.53 03/17/2012 88.56 03/17/2012 [id number] RESECTION OF LEFT THYROID GLAND LOBE, OP 04/21/2018 [id number] RESECTION OF RIGHT THYROID GLAND LOBE, O 04/21/2018 [id number] RESECTION OF THYROID GLAND , OPEN APPROAC 04/21/2018 [id number] EXCISION OF RIGHT LOWER ARM SKIN, WEB OPERATIONS MANAGER 04/21/2018 [id number] CONTROL BLEEDING IN NECK, OPEN APPROACH 04/21/2018 [id number] RESPIRATORY VENTILATION, 24-96 CONSECUTI 04/21/2018 Results Test Result Range Complete blood count (CBC) with automated white blood cell (WBC) differential - 04/21/18 10:45 Blood leukocytes automated count (number/volume) 4.6 10*3/uL 4.3-11.0 Blood erythrocytes automated count (number/volume) 4.45 10*6/uL 4.35-5.85 Venous blood hemoglobin measurement (mass/volume) 13.5 g/dL 11.5-16.0 Blood hematocrit (volume fraction) 41 % 35-52 Automated erythrocyte mean corpuscular volume 92 [foz_us] 80-99 Automated erythrocyte mean corpuscular hemoglobin (mass per erythrocyte) 30 pg 25-34 Automated erythrocyte mean corpuscular hemoglobin concentration measurement ( mass/volume) 33 g/dL 32-36 Automated erythrocyte distribution width ratio 12.5 % 10.0-14.5 Automated blood platelet count (count/volume) 277 10*3/uL 130-400 Automated blood platelet mean volume measurement 9.6 [foz_us] 7.4-10.4 Automated blood neutrophils/100 leukocytes 44 % 42-75 Automated blood lymphocytes/100 leukocytes 39 % 12-44 Blood monocytes/100 leukocytes 10 % 0-12 Automated blood eosinophils/100 leukocytes 5 % 0-10 Automated blood basophils/100 leukocytes 3 % 0-10 Blood neutrophils automated count (number/volume) 2.0 10*3 1.8-7.8 Blood lymphocytes automated count (number/volume) 1.8 10*3 1.0-4.0 Blood monocytes automated count (number/volume) 0.5 10*3 0.0-1.0 Automated eosinophil count 0.2 10*3/uL 0.0-0.3 Automated blood basophil count (count/volume) 0.1 10*3/uL 0.0-0.1 Whole blood basic metabolic panel - 04/21/18 10:45 Serum or plasma sodium measurement (moles/volume) 143 mmol/L 135-145 Serum or plasma potassium measurement (moles/volume) 4.2 mmol/L 3.6-5.0 Serum or plasma chloride measurement (moles/volume) 107 mmol/L 98-107 Carbon dioxide 25 mmol/L 21-32 Serum or plasma anion gap determination (moles/volume) 11 mmol/L 5-14 Serum or plasma urea nitrogen measurement (mass/volume) 11 mg/dL 7-18 Serum or plasma creatinine measurement (mass/volume) 0.81 mg/dL 0.60-1.30 Serum or plasma urea nitrogen/creatinine mass ratio 14 NRG Serum or plasma creatinine measurement with calculation of estimated glomerular filtration rate > NRG Serum or plasma glucose measurement (mass/volume) 90 mg/dL 70-105 Serum or plasma calcium measurement (mass/volume) 9.3 mg/dL 8.5-10.1 Blood manual differential performed detection - 04/21/18 10:45 Blood monocytes/100 leukocytes 9 % NRG Manual blood segmented neutrophils/100 leukocytes 40 % NRG Blood band neutrophils/100 leukocytes 0 % NRG Manual blood lymphocytes/100 leukocytes 44 % NRG Manual eosinophils/100 leukocytes in nose 3 % NRG Manual blood basophils/100 leukocytes 3 % NRG Blood lymphocytes variant/100 leukocytes 1 % NRG Blood erythrocyte morphology finding identification NORMAL NRG Methicillin resistant Staphylococcus aureus (MRSA) screening culture - 10:45 Methicillin resistant Staphylococcus aureus (MRSA) screening culture NEG NRG Complete blood count (CBC) with automated white blood cell (WBC) differential - 04/22/18 02:05 Blood leukocytes automated count (number/volume) 17.3 10*3/uL 4.3-11.0 Blood erythrocytes automated count (number/volume) 4.21 10*6/uL 4.35-5.85 Venous blood hemoglobin measurement (mass/volume) 13.1 g/dL 11.5-16.0 Blood hematocrit (volume fraction) 39 % 35-52 Automated erythrocyte mean corpuscular volume 92 [foz_us] 80-99 Automated erythrocyte mean corpuscular hemoglobin (mass per erythrocyte) 31 pg 25-34 Automated erythrocyte mean corpuscular hemoglobin concentration measurement ( mass/volume) 34 g/dL 32-36 Automated erythrocyte distribution width ratio 12.1 % 10.0-14.5 Automated blood platelet count (count/volume) 138 10*3/uL 130-400 Automated blood platelet mean volume measurement 9.9 [foz_us] 7.4-10.4 Automated blood neutrophils/100 leukocytes 89 % 42-75 Automated blood lymphocytes/100 leukocytes 5 % 12-44 Blood monocytes/100 leukocytes 5 % 0-12 Automated blood eosinophils/100 leukocytes 0 % 0-10 Automated blood basophils/100 leukocytes 0 % 0-10 Blood neutrophils automated count (number/volume) 15.5 10*3 1.8-7.8 Blood lymphocytes automated count (number/volume) 0.9 10*3 1.0-4.0 Blood monocytes automated count (number/volume) 0.9 10*3 0.0-1.0 Automated eosinophil count 0.0 10*3/uL 0.0-0.3 Automated blood basophil count (count/volume) 0.0 10*3/uL 0.0-0.1 Blood lactic acid measurement (moles/volume) - 04/22/18 02:05 Blood lactic acid measurement (moles/volume) 1.70 mmol/L 0.50-2.00 Comprehensive metabolic panel - 04/22/18 02:05 Serum or plasma sodium measurement (moles/volume) 140 mmol/L 135-145 Serum or plasma potassium measurement (moles/volume) 4.0 mmol/L 3.6-5.0 Serum or plasma chloride measurement (moles/volume) 106 mmol/L 98-107 Carbon dioxide 20 mmol/L 21-32 Serum or plasma anion gap determination (moles/volume) 14 mmol/L 5-14 Serum or plasma urea nitrogen measurement (mass/volume) 15 mg/dL 7-18 Serum or plasma creatinine measurement (mass/volume) 0.96 mg/dL 0.60-1.30 Serum or plasma urea nitrogen/creatinine mass ratio 16 NRG Serum or plasma creatinine measurement with calculation of estimated glomerular filtration rate 57 NRG Serum or plasma glucose measurement (mass/volume) 222 mg/dL 70-105 Serum or plasma calcium measurement (mass/volume) 8.4 mg/dL 8.5-10.1 Serum or plasma total bilirubin measurement (mass/volume) 0.5 mg/dL 0.1-1.0 Serum or plasma alkaline phosphatase measurement (enzymatic activity/volume) 54 U/L 40-136 Serum or plasma aspartate aminotransferase measurement (enzymatic activity/ volume) 21 U/L 5-34 Serum or plasma alanine aminotransferase measurement (enzymatic activity/volume ) 13 U/L 0-55 Serum or plasma protein measurement (mass/volume) 6.4 g/dL 6.4-8.2 Serum or plasma albumin measurement (mass/volume) 3.9 g/dL 3.2-4.5 Magnesium - 04/22/18 02:05 Magnesium 1.8 mg/dL 1.8-2.4 PT panel in platelet poor plasma by coagulation assay - 04/22/18 02:05 Prothrombin time (PT) in platelet poor plasma by coagulation assay 13.7 s 12.2-14.7 INR in platelet poor plasma or blood by coagulation assay 1.0 0.8-1.4 Serum or plasma troponin i.cardiac measurement (mass/volume) - 04/22/18 02:05 Serum or plasma troponin i.cardiac measurement (mass/volume) < ng/ mL <0.30 Arterial blood gas measurement - 04/22/18 02:14 Blood pCO2 37 mm[Hg] 35-45 Blood pO2 401 mm[Hg] 79-93 Arterial blood bicarbonate measurement (moles/volume) 24 mmol/L 23-27 Arterial blood base excess by calculation 0.2 mmol/L -2.5 -2.5 Arterial blood oxygen saturation measurement 100 % 94- 100 * Inhaled oxygen flow rate 100% NRG Arterial blood pH measurement with patient temperature correction 7.43 7.37-7.43 Arterial blood carbon dioxide, total measurement (moles/volume) 25.5 mmol/L 21.0-31.0 Body site LEFT RADIAL NRG Assessment of wrist artery patency prior to arterial puncture YES- POS NRG Setting of ventilation mode YES NRG Measurement of body temperature 96.9 NRG Sputum Gram stain - 04/22/18 02:20 Sputum Gram stain Rare ciliated epithelial cell and WBC, no bacteria NRG Bacterial sputum culture - 04/22/18 02:20 FREE TEXT EXTERNAL 2 COLONIES ISOLATED NRG QUANTITY OF GROWTH Scant Growth NRG Bacterial sputum culture [id number] NRG IONIZED CALCIUM (SEND OFF) - 04/22/18 03:35 Blood ionized calcium measurement (mass/volume) 1.06 % 1.16-1.32 Venous blood ionized calcium measurement adjusted to pH 7.4 (moles/volume) 1.03 % 1.16-1.32 pH measurement 7.36 NRG Capillary blood glucose measurement by glucometer (mass/volume) - 04/22/18 12: 00 Capillary blood glucose measurement by glucometer (mass/volume) 142 mg/dL 70-110 Capillary blood glucose measurement by glucometer (mass/volume) - 04/22/18 16: 42 Capillary blood glucose measurement by glucometer (mass/volume) 119 mg/dL 70-110 Capillary blood glucose measurement by glucometer (mass/volume) - 04/22/18 22: 12 Capillary blood glucose measurement by glucometer (mass/volume) 100 mg/dL 70-110 Arterial blood gas measurement - 04/23/18 03:20 Blood pCO2 35 mm[Hg] 35-45 Blood pO2 74 mm[Hg] 79-93 Arterial blood bicarbonate measurement (moles/volume) 24 mmol/L 23-27 Arterial blood base excess by calculation 0.9 mmol/L -2.5 -2.5 Arterial blood oxygen saturation measurement 97 % 94-100 * Inhaled oxygen flow rate 21% NRG Arterial blood pH measurement with patient temperature correction 7.46 7.37-7.43 Arterial blood carbon dioxide, total measurement (moles/volume) 25.4 mmol/L 21.0-31.0 Body site L RAD NRG Assessment of wrist artery patency prior to arterial puncture YES- POS NRG Setting of ventilation mode YES NRG Measurement of body temperature 98.6 NRG Complete blood count (CBC) with automated white blood cell (WBC) differential - 04/23/18 03:20 Blood leukocytes automated count (number/volume) 11.2 10*3/uL 4.3-11.0 Blood erythrocytes automated count (number/volume) 3.23 10*6/uL 4.35-5.85 Venous blood hemoglobin measurement (mass/volume) 9.8 g/dL 11.5-16.0 Blood hematocrit (volume fraction) 30 % 35-52 Automated erythrocyte mean corpuscular volume 94 [foz_us] 80-99 Automated erythrocyte mean corpuscular hemoglobin (mass per erythrocyte) 30 pg 25-34 Automated erythrocyte mean corpuscular hemoglobin concentration measurement ( mass/volume) 32 g/dL 32-36 Automated erythrocyte distribution width ratio 12.5 % 10.0-14.5 Automated blood platelet count (count/volume) 185 10*3/uL 130-400 Automated blood platelet mean volume measurement 10.1 [foz_us] 7.4-10.4 Automated blood neutrophils/100 leukocytes 69 % 42-75 Automated blood lymphocytes/100 leukocytes 22 % 12-44 Blood monocytes/100 leukocytes 9 % 0-12 Automated blood eosinophils/100 leukocytes 0 % 0-10 Automated blood basophils/100 leukocytes 0 % 0-10 Blood neutrophils automated count (number/volume) 7.7 10*3 1.8-7.8 Blood lymphocytes automated count (number/volume) 2.5 10*3 1.0-4.0 Blood monocytes automated count (number/volume) 1.0 10*3 0.0-1.0 Automated eosinophil count 0.0 10*3/uL 0.0-0.3 Automated blood basophil count (count/volume) 0.0 10*3/uL 0.0-0.1 Whole blood basic metabolic panel - 04/23/18 03:20 Serum or plasma sodium measurement (moles/volume) 142 mmol/L 135-145 Serum or plasma potassium measurement (moles/volume) 3.9 mmol/L 3.6-5.0 Serum or plasma chloride measurement (moles/volume) 111 mmol/L 98-107 Carbon dioxide 22 mmol/L 21-32 Serum or plasma anion gap determination (moles/volume) 9 mmol/L 5-14 Serum or plasma urea nitrogen measurement (mass/volume) 14 mg/dL 7-18 Serum or plasma creatinine measurement (mass/volume) 0.73 mg/dL 0.60-1.30 Serum or plasma urea nitrogen/creatinine mass ratio 19 NRG Serum or plasma creatinine measurement with calculation of estimated glomerular filtration rate > NRG Serum or plasma glucose measurement (mass/volume) 86 mg/dL 70-105 Serum or plasma calcium measurement (mass/volume) 7.5 mg/dL 8.5-10.1 Serum or plasma phosphate measurement (mass/volume) - 04/23/18 03:20 Serum or plasma phosphate measurement (mass/volume) 2.2 mg/dL 2.3-4.7 Magnesium - 04/23/18 03:20 Magnesium 1.9 mg/dL 1.8-2.4 Capillary blood glucose measurement by glucometer (mass/volume) - 04/23/18 08: 42 Capillary blood glucose measurement by glucometer (mass/volume) 85 mg/dL 70-110 Whole blood hemoglobin and hematocrit panel - 04/23/18 10:10 Venous blood hemoglobin measurement (mass/volume) 8.7 g/dL 11.5-16.0 Blood hematocrit (volume fraction) 27 % 35-52 Capillary blood glucose measurement by glucometer (mass/volume) - 04/23/18 14: 55 Capillary blood glucose measurement by glucometer (mass/volume) 65 mg/dL 70-110 Arterial blood gas measurement - 04/23/18 16:25 Blood pCO2 37 mm[Hg] 35-45 Blood pO2 85 mm[Hg] 79-93 Arterial blood bicarbonate measurement (moles/volume) 25 mmol/L 23-27 Arterial blood base excess by calculation 1.1 mmol/L -2.5 -2.5 Arterial blood oxygen saturation measurement 97 % 94-100 * Inhaled oxygen flow rate 21% NRG Arterial blood pH measurement with patient temperature correction 7.44 7.37-7.43 Arterial blood carbon dioxide, total measurement (moles/volume) 25.8 mmol/L 21.0-31.0 Body site LT RAD NRG Assessment of wrist artery patency prior to arterial puncture YES- POS NRG Setting of ventilation mode YES NRG Measurement of body temperature 99.3 NRG Capillary blood glucose measurement by glucometer (mass/volume) - 04/23/18 16: 34 Capillary blood glucose measurement by glucometer (mass/volume) 101 mg/dL 70-110 Capillary blood glucose measurement by glucometer (mass/volume) - 04/24/18 00: 12 Capillary blood glucose measurement by glucometer (mass/volume) 99 mg/dL 70-110 Complete blood count (CBC) with automated white blood cell (WBC) differential - 04/24/18 03:45 Blood leukocytes automated count (number/volume) 9.2 10*3/uL 4.3-11.0 Blood erythrocytes automated count (number/volume) 3.51 10*6/uL 4.35-5.85 Venous blood hemoglobin measurement (mass/volume) 10.6 g/dL 11.5-16.0 Blood hematocrit (volume fraction) 32 % 35-52 Automated erythrocyte mean corpuscular volume 92 [foz_us] 80-99 Automated erythrocyte mean corpuscular hemoglobin (mass per erythrocyte) 30 pg 25-34 Automated erythrocyte mean corpuscular hemoglobin concentration measurement ( mass/volume) 33 g/dL 32-36 Automated erythrocyte distribution width ratio 12.1 % 10.0-14.5 Automated blood platelet count (count/volume) 197 10*3/uL 130-400 Automated blood platelet mean volume measurement 9.8 [foz_us] 7.4-10.4 Automated blood neutrophils/100 leukocytes 66 % 42-75 Automated blood lymphocytes/100 leukocytes 23 % 12-44 Blood monocytes/100 leukocytes 10 % 0-12 Automated blood eosinophils/100 leukocytes 0 % 0-10 Automated blood basophils/100 leukocytes 1 % 0-10 Blood neutrophils automated count (number/volume) 6.1 10*3 1.8-7.8 Blood lymphocytes automated count (number/volume) 2.1 10*3 1.0-4.0 Blood monocytes automated count (number/volume) 1.0 10*3 0.0-1.0 Automated eosinophil count 0.0 10*3/uL 0.0-0.3 Automated blood basophil count (count/volume) 0.1 10*3/uL 0.0-0.1 Whole blood basic metabolic panel - 04/24/18 03:45 Serum or plasma sodium measurement (moles/volume) 144 mmol/L 135-145 Serum or plasma potassium measurement (moles/volume) 3.2 mmol/L 3.6-5.0 Serum or plasma chloride measurement (moles/volume) 109 mmol/L 98-107 Carbon dioxide 25 mmol/L 21-32 Serum or plasma anion gap determination (moles/volume) 10 mmol/L 5-14 Serum or plasma urea nitrogen measurement (mass/volume) 7 mg/dL 7-18 Serum or plasma creatinine measurement (mass/volume) 0.64 mg/dL 0.60-1.30 Serum or plasma urea nitrogen/creatinine mass ratio 11 NRG Serum or plasma creatinine measurement with calculation of estimated glomerular filtration rate > NRG Serum or plasma glucose measurement (mass/volume) 90 mg/dL 70-105 Serum or plasma calcium measurement (mass/volume) 8.2 mg/dL 8.5-10.1 Serum or plasma phosphate measurement (mass/volume) - 04/24/18 03:45 Serum or plasma phosphate measurement (mass/volume) 2.8 mg/dL 2.3-4.7 Magnesium - 04/24/18 03:45 Magnesium 1.8 mg/dL 1.8-2.4 Complete blood count (CBC) with automated white blood cell (WBC) differential - 04/25/18 06:06 Blood leukocytes automated count (number/volume) 6.7 10*3/uL 4.3-11.0 Blood erythrocytes automated count (number/volume) 3.58 10*6/uL 4.35-5.85 Venous blood hemoglobin measurement (mass/volume) 10.8 g/dL 11.5-16.0 Blood hematocrit (volume fraction) 33 % 35-52 Automated erythrocyte mean corpuscular volume 91 [foz_us] 80-99 Automated erythrocyte mean corpuscular hemoglobin (mass per erythrocyte) 30 pg 25-34 Automated erythrocyte mean corpuscular hemoglobin concentration measurement ( mass/volume) 33 g/dL 32-36 Automated erythrocyte distribution width ratio 11.8 % 10.0-14.5 Automated blood platelet count (count/volume) 204 10*3/uL 130-400 Automated blood platelet mean volume measurement 9.7 [foz_us] 7.4-10.4 Automated blood neutrophils/100 leukocytes 65 % 42-75 Automated blood lymphocytes/100 leukocytes 21 % 12-44 Blood monocytes/100 leukocytes 10 % 0-12 Automated blood eosinophils/100 leukocytes 3 % 0-10 Automated blood basophils/100 leukocytes 1 % 0-10 Blood neutrophils automated count (number/volume) 4.3 10*3 1.8-7.8 Blood lymphocytes automated count (number/volume) 1.4 10*3 1.0-4.0 Blood monocytes automated count (number/volume) 0.7 10*3 0.0-1.0 Automated eosinophil count 0.2 10*3/uL 0.0-0.3 Automated blood basophil count (count/volume) 0.1 10*3/uL 0.0-0.1 Whole blood basic metabolic panel - 05/26/18 06:06 Serum or plasma sodium measurement (moles/volume) 141 mmol/L 135-145 Serum or plasma potassium measurement (moles/volume) 3.6 mmol/L 3.6-5.0 Serum or plasma chloride measurement (moles/volume) 107 mmol/L 98-107 Carbon dioxide 24 mmol/L 21-32 Serum or plasma anion gap determination (moles/volume) 10 mmol/L 5-14 Serum or plasma urea nitrogen measurement (mass/volume) 10 mg/dL 7-18 Serum or plasma creatinine measurement (mass/volume) 0.69 mg/dL 0.60-1.30 Serum or plasma urea nitrogen/creatinine mass ratio 14 NRG Serum or plasma creatinine measurement with calculation of estimated glomerular filtration rate > NRG Serum or plasma glucose measurement (mass/volume) 101 mg/dL 70-105 Serum or plasma calcium measurement (mass/volume) 8.4 mg/dL 8.5-10.1 Serum or plasma phosphate measurement (mass/volume) - 04/25/18 06:06 Serum or plasma phosphate measurement (mass/volume) 3.2 mg/dL 2.3-4.7 Magnesium - 04/25/18 06:06 Magnesium 2.0 mg/dL 1.8-2.4 Encounters ACCT No. Visit Date/Time Discharge Status Pt. Type Provider Facility Loc./Unit Complaint [id number] 07/23/2018 07:40:00 07/23/2018 23:59:59 CLS Outpatient DAKOTA SOLIZ DO [facility] RAD PAIN NUMBNESS DOWN LEFT LEG GETTING WORSE [id number] 05/28/2018 10:17:00 05/28/2018 23:59:59 CLS Outpatient ABBEY BURNETT MD [facility] CARD CHEST PAINCHEST PAIN, CORONARY ARTERIOSCLEROSIS [id number] 05/28/2018 10:14:00 05/28/2018 23:59:59 CLS Outpatient ABBEY BURNETT MD [facility] CARD CHEST PAIN,CORONARY ARTERIOSCLEROSIS [id number] 04/22/2018 09:04:00 04/25/2018 13:15:00 DIS Inpatient NEGAR SINGER MD [facility] 4TH THYROID NODULES,HEMATOMA [id number] 04/20/2018 05:41:00 04/20/2018 14:27:00 DIS Outpatient NEGAR SINGER MD [facility] PREOP THYROID NODULES, HEMATOMA [id number] 03/30/2018 13:47:00 03/30/2018 16:34:00 DIS Emergency YVETTE GROVE [facility] ER RIGHT ARM LAC [id number] 03/23/2018 09:54:00 03/23/2018 13:15:00 DIS Outpatient NEGAR SINGER MD [facility] ENDO SCREENING [id number] 03/17/2018 05:40:00 03/17/2018 23:59:59 CLS Outpatient NEGAR SINGER MD [facility] PREOP COLONOSCOPY [id number] 02/20/2018 12:09:00 02/20/2018 23:59:59 CLS Outpatient DAKOTA SOLIZ DO [facility] RAD THYROID NODULE [id number] 01/07/2018 11:31:00 01/07/2018 23:59:59 CLS Outpatient SASKIA JOYNER [facility] RAD Z98.890 I65.23 [id number] 11/25/2017 10:47:00 01/02/2018 10:22:00 DIS Outpatient DAKOTA SOLIZ DO [facility] REHAB LBP WITH L RADICULOPATHY [id number] 11/20/2017 11:26:00 11/20/2017 23:59:59 CLS Outpatient DAKOTA SOLIZ DO [facility] RAD YEARLY MAMMO [id number] 07/17/2017 12:16:00 07/17/2017 23:59:59 CLS Outpatient DAKOTA SOLIZ DO [facility] RAD THYROID NODULE [id number] 04/08/2017 00:14:00 04/08/2017 23:59:59 CLS Preadmit DORITA SANTIAGO [facility] REHAB STENOSIS; LUMBAR RADICULOPATHY [id number] 03/21/2017 14:30:00 04/07/2017 00:01:00 DIS Outpatient DORITA SANTIAGO [facility] REHAB STENOSIS; LUMBAR RADICULOPATHY [id number] 01/01/2017 12:59:00 01/01/2017 23:59:59 CLS Outpatient ROMAINE MACHADO DO [facility] RAD CYST,CLAUDICATION [id number] 12/06/2016 10:35:00 12/06/2016 23:59:59 CLS Outpatient DAKOTA SOLIZ DO [facility] RAD PAIN LT KNEE LT LOWER LEG [id number] 12/03/2016 08:38:00 12/03/2016 23:59:59 CLS Outpatient DAKOTA SOLIZ DO [facility] RAD FOOT COLD,LT LEG PAIN [id number] 10/08/2016 13:25:00 10/08/2016 23:59:59 CLS Outpatient DAKOTA SOLIZ DO [facility] RAD LT THYROID SOLID MASS [id number] 09/19/2016 11:09:00 09/19/2016 23:59:59 CLS Outpatient HARSH ZHAO [facility] RAD HTN,HX OF THYROID NODULE,HLP [id number] 04/01/2016 07:42:00 04/01/2016 23:59:59 CLS Outpatient HARSH ZHAO [facility] CARD HTN,HLP, [id number] 03/28/2016 12:29:00 03/28/2016 23:59:59 CLS Outpatient HARSH ZHAO [facility] CARD HTN,HLP, CORONARY STENOSIS [id number] 03/19/2016 08:44:00 03/19/2016 23:59:59 CLS Outpatient ABBEY BURNETT MD [facility] RAD CAROTID STENOSIS BILATERAL [id number] 03/09/2015 08:02:00 03/09/2015 23:59:59 CLS Outpatient DAKOTA SOLIZ DO [facility] RAD SCREENING [id number] 07/27/2014 09:00:00 07/27/2014 18:00:00 DIS Outpatient ABBEY BURNETT MD [facility] CATH ABNORMAL STRESS, CAD, HTN,HLP,TOBACCOISM [id number] 07/25/2014 07:42:00 07/25/2014 23:59:59 CLS Outpatient HARSH ZHAO [facility] CARD CAD,HTN,HLP, TOBACCO USE [id number] 07/21/2014 08:00:00 07/21/2014 08:13:00 DIS Emergency CAR SALCEDO MD [facility] ER SUTURE REMOVAL [id number] 07/11/2014 11:17:00 07/11/2014 13:03:00 DIS Emergency YVETTE GROVE [facility] ER LEFT HAND LAC [id number] 07/05/2014 10:44:00 07/05/2014 23:59:59 CLS Outpatient HARSH ZHAO [facility] CARD CAD,HTN,HLP, TOBACCO USE [id number] 10/13/2013 07:24:00 10/13/2013 23:59:59 CLS Outpatient DAKOTA SOLIZ DO [facility] RAD ABN MAMMO [id number] 09/22/2013 09:00:00 09/22/2013 23:59:59 CLS Outpatient INDYDAKOTA VILLALBA DO [facility] RAD SCREENING [id number] 05/15/2013 15:37:00 05/15/2013 17:58:00 DIS Emergency CRISTINA DONALD DO [facility] ER HIGH BLOOD PRESSURE [id number] 04/07/2013 08:09:00 04/08/2013 09:30:00 DIS Outpatient ABBEY BURNETT MD [facility] CATH ABN STRESS,CAD,HTN,HLP, CHEST PAIN [id number] 03/29/2013 07:50:00 03/29/2013 23:59:59 CLS Outpatient ABBEY BURNETT MD [facility] RAD CAD,HTN,HLP [id number] 01/11/2019 09:00:00 PEN Preadmit SASKIA JOYNER [facility] RAD I65.23 BILATERAL CAROTID ARTERY ATHEROSCLEROSIS [id number] 05/27/2012 07:18:00 Document Registration [id number] 04/01/2012 07:40:00 Document Registration [id number] 03/17/2012 11:47:00 Document Registration [id number] 05/13/2011 08:37:00 Document Registration [id number] 03/09/2015 08:02:59 ACT Document Registration
[2018-08-10] MEDS ORDERED: NS IV 500 ML 500 ML ONE (10:14)
[2018-08-10] MEDS ORDERED: NS IV 500 ML 500 ML IV ONE (10:25)
--- NOTE | 2018-08-10 10:28 | ED Chest Pain ---
General Stated Complaint: CHEST PAIN Source: patient, family Exam Limitations: no limitations History of Present Illness Date Seen by Provider: Aug 10, 2018 Time Seen by Provider: 09:55 Initial Comments Patient presents to ER by private conveyance with significant other and chief complaint that she is having chest tightness across the top of her chest started about 30 minutes prior to arrival. Does not radiate to her jaw neck or shoulder. She has a history of coronary artery disease with stents as well as a stent her right carotid and recently she's been having quite a bit of pain in her bilateral lower legs that her doctors think is related to her low back. She has appointments to follow up with orthopedics and consider injections for this. Today she was sitting resting doing nothing strenuous when she started having this tightness in her chest without shortness of breath cough fevers or chills. She does have nausea but no vomiting. She is known to Dr. Estrella. The patient admits to having some edema in her left more than right leg the past several weeks. She says her doctor Dr. Soliz remarked that it might be due to her amlodipine. She's not having any swelling or edema today. Allergies and Home Medications Allergies Coded Allergies: No Known Drug Allergies (Unverified , 04/20/18) Home Medications Amlodipine Besylate 5 Mg Tablet, 10 MG PO DAILY, (Reported) Aspirin 81 Mg Tab.chew, 81 MG PO DAILY, (Reported) Benazepril HCl 40 Mg Tab, 40 MG PO DAILY, (Reported) Carvedilol 12.5 Mg Tablet, 12.5 MG PO BID, (Reported) Cholecalciferol (Vitamin D3) 400 Unit Tablet, 400 UNIT PO DAILY, (Reported) Fenofibrate 54 Mg Tablet, 54 MG PO HS, (Reported) Gabapentin 800 Mg Tablet, 800 MG PO TID, (Reported) Hydrochlorothiazide 25 Mg Tablet, 25 MG PO DAILY, (Reported) Hydrocodone Bit/Acetaminophen 1 Tab Tab, 1-2 TAB PO 4-6HR PRN for PAIN Prescribed by: NEGAR SINGER on 04/21/18 1418 Levothyroxine Sodium 100 Mcg Tablet, 100 MCG PO DAILY Prescribed by: NEGAR SINGER on 04/21/18 1419 Patient Home Medication List Home Medication List Reviewed: Yes Review of Systems Review of Systems Constitutional: No chills, No diaphoresis EENTM: No Blurred Vision, No Double Vision Respiratory: Denies Cough, Denies Shortness of Air, Denies Wheezing Cardiovascular: See HPI, Chest Pain; Denies Edema Gastrointestinal: Denies Abdomen Distended, Denies Abdominal Pain; Nausea; Denies Vomiting Genitourinary: Denies Burning, Denies Discharge Musculoskeletal: No back pain, No joint pain Past Neeivro-Guvauw-Wezhml Hx Patient Social History Type Used: Cigarettes Recent Hopitalizations: No Immunizations Up To Date Tetanus Booster (TDap): Less than 5yrs Date of Pneumonia Vaccine: Sep 11, 2015 Date of Influenza Vaccine: Sep 15, 2017 Seasonal Allergies Seasonal Allergies: No Past Medical History Surgeries: Yes (R CAROTID ENDARTERECTOMY AND STENT, L KNEE SURGERY) Appendectomy, Coronary Stent, Orthopedic, Tubal Ligation Respiratory: No Cardiac: Yes (STENTS X5) Coronary Artery Disease, Heart Attack, High Cholesterol, Hypertension Neurological: No Reproductive Disorders: No Sexually Transmitted Disease: No HIV/AIDS: No Genitourinary: No Gastrointestinal: No Musculoskeletal: Yes (SPINAL STENOSIS) Degenerate Disk Disease, Arthritis Endocrine: Yes (THYROID NODULES) Loss of Vision: Bilateral Hearing Impairment: Denies Cancer: Yes (SKIN X 36) Skin Psychosocial: Yes Anxiety Integumentary: No Blood Disorders: No Adverse Reaction/Blood Tranf: No (N/A) Family Medical History Respiratory disorder No Pertinent Family Hx Physical Exam Vital Signs Vital Signs - First Documented 08/10/18 09:55 Temp 97.5 Pulse 60 Resp 24 B/P (MAP) 137/63 (87) Pulse Ox 99 O2 Delivery Room Air Capillary Refill : Height, Weight, BMI Height: 5'9.00" Weight: 148lbs. 0.0oz. 67.352376rp; 22.6 BMI Method:Stated General Appearance: Anxious, Moderate Distress HEENT: PERRL/EOMI, Pharynx Normal; No Moist Mucous Membranes Neck: Full Range of Motion, Normal Inspection, Non Tender Respiratory: Lungs Clear, Normal Breath Sounds, No Accessory Muscle Use, No Respiratory Distress, Other (chest wall was tender to palpation) Cardiovascular: Regular Rate, Rhythm, No Edema, Normal Peripheral Pulses Gastrointestinal: Normal Bowel Sounds, Non Tender, Soft Extremity: Normal Capillary Refill, No Pedal Edema Neurologic/Psychiatric: Alert, Oriented x3 Skin: Normal Color, Warm/Dry Procedures/Interventions Date of ETT Placement: April 22, 2018 Progress/Results/Core Measures Results/Orders Lab Results Laboratory Tests Test 08/10/18 10:05 08/10/18 11:32 Range/Units White Blood Count 7.1 4.3-11.0 10^3/uL Red Blood Count 4.53 4.35-5.85 10^6/uL Hemoglobin 13.7 11.5-16.0 G/DL Hematocrit 41 35-52 % Mean Corpuscular Volume 90 80-99 FL Mean Corpuscular Hemoglobin 30 25-34 PG Mean Corpuscular Hemoglobin Concent 34 32-36 G/DL Red Cell Distribution Width 12.5 10.0-14.5 % Platelet Count 293 130-400 10^3/uL Mean Platelet Volume 9.7 7.4-10.4 FL Neutrophils (%) (Auto) 68 42-75 % Lymphocytes (%) (Auto) 19 12-44 % Monocytes (%) (Auto) 9 0-12 % Eosinophils (%) (Auto) 3 0-10 % Basophils (%) (Auto) 2 0-10 % Neutrophils # (Auto) 4.8 1.8-7.8 X 10^3 Lymphocytes # (Auto) 1.4 1.0-4.0 X 10^3 Monocytes # (Auto) 0.6 0.0-1.0 X 10^3 Eosinophils # (Auto) 0.2 0.0-0.3 10^3/uL Basophils # (Auto) 0.1 0.0-0.1 10^3/uL Prothrombin Time 12.3 12.2-14.7 SEC INR Comment 0.9 0.8-1.4 Activated Partial Thromboplast Time 27 24-35 SEC Sodium Level 135 135-145 MMOL/L Potassium Level 4.1 3.6-5.0 MMOL/L Chloride Level 99 98-107 MMOL/L Carbon Dioxide Level 26 21-32 MMOL/L Anion Gap 10 5-14 MMOL/L Blood Urea Nitrogen 10 7-18 MG/DL Creatinine 0.80 0.60-1.30 MG/DL Estimat Glomerular Filtration Rate > 60 BUN/Creatinine Ratio 13 Glucose Level 105 70-105 MG/DL Calcium Level 9.0 8.5-10.1 MG/DL Corrected Calcium 8.8 8.5-10.1 MG/DL Magnesium Level 2.0 1.8-2.4 MG/DL Total Bilirubin 0.3 0.1-1.0 MG/DL Aspartate Amino Transf (AST/SGOT) 22 5-34 U/L Alanine Aminotransferase (ALT/SGPT) 12 0-55 U/L Alkaline Phosphatase 78 40-136 U/L Myoglobin 47.7 10.0-92.0 NG/ML Troponin I < 0.30 < 0.30 <0.30 NG/ML B-Type Natriuretic Peptide 72.9 <100.0 PG/ML Total Protein 6.8 6.4-8.2 GM/DL Albumin 4.2 3.2-4.5 GM/DL My Orders Orders - YAEL SCHREIBER Nitroglycerin 0.4 Mg Btl 25's (Nitrostat (08/10/18 09:58) Aspirin Chewable Tablet (Baby Aspirin Ch (08/10/18 09:58) Ns Iv 500 Ml (Sodium Chloride 0.9%) (08/10/18 10:14) Acetaminophen Tablet (Tylenol Tablet) (08/10/18 10:30) Cbc With Automated Diff (08/10/18 10:25) Magnesium (08/10/18 10:25) Chest 1 View, Ap/Pa Only (08/10/18 10:25) Ekg Tracing (08/10/18 10:25) Cardiac Profile 1 (08/10/18 10:25) Comprehensive Metabolic Panel (08/10/18 10:25) Myoglobin Serum (08/10/18 10:25) Protime With Inr (08/10/18 10:25) Partial Thromboplastin Time (08/10/18 10:25) O2 (08/10/18 10:25) Monitor-Rhythm Ecg Trace Only (08/10/18 10:25) Lipid Panel (08/11/18 06:00) Aspirin Chewable Tablet (Baby Aspirin Ch (08/10/18 10:30) Nitroglycerin 0.4 Mg Btl 25's (Nitrostat (08/10/18 10:30) Saline Lock/Iv-Start (08/10/18 10:25) BNP (08/10/18 10:25) Saline Lock/Iv-Start (08/10/18 10:25) Ns Iv 500 Ml (Sodium Chloride 0.9%) (08/10/18 10:25) Morphine Injection (Morphine Injection (08/10/18 12:00) Ekg Tracing (08/10/18 12:15) Troponin I (08/10/18 12:15) Medications Given in ED Current Medications Medications Dose Ordered Sig/Sho Route Start Time Stop Time Status Last Admin Dose Admin Acetaminophen 1,000 mg ONCE ONCE PO 08/10/18 10:30 08/10/18 10:31 DC 08/10/18 10:29 1,000 MG Aspirin 324 mg ONCE ONCE PO 08/10/18 10:30 08/10/18 10:31 DC 08/10/18 10:05 324 MG Morphine Sulfate 2 mg ONCE ONCE IVP 08/10/18 12:00 08/10/18 12:01 DC 08/10/18 11:56 2 MG Nitroglycerin 0.4 mg UD PRN SL 08/10/18 10:30 08/10/18 10:10 0.4 MG Sodium Chloride 500 ml @ 0 mls/hr Q0M ONCE IV 08/10/18 10:25 08/10/18 10:26 DC 08/10/18 10:25 500 MLS/HR Vital Signs/I&O 08/10/18 08/10/18 09:55 09:55 Temp 97.5 Pulse 60 Resp 24 B/P (MAP) 137/63 (87) Pulse Ox 99 O2 Delivery Room Air Progress Progress Note #1: Time: 11:[address] Estrella stress test July 08, 2018: No ischemia, calculated EF 67%. Echocardiogram, 2-D July 06, 2018: EF 55-65%. With normal systolic function. Moderate aortic valve regurgitation. Coronary catheter 2014 shows 50% proximal circumflex artery stenosis and mild in -stent restenosis in the mid LAD that is nonobstructive. Patent stent in the diagonal artery and in the right coronary artery. Unremarkable EKG. Chest wall tenderness to palpation but no painful inspiration. No evidence on the chest x-ray of pneumonia. Could be costochondritis versus coronary related. She does have a fairly stiff history of vascular disease. The first nitroglycerin took her chest discomfort always down to 1 out of 10. It also dropped her blood pressure down to around 100 - 110 mmHg systolic so we gave her a half liter bolus. Since she presented only one half hour after her chest pain started a serial troponin would be required to rule out cardiogenic pain. ED ACS score of 8 points. Low risk by the EDACS Score. If the patient also has: (1) EKG without new ischemic changes and (2) negative initial and 2-hour troponins, then this patient is safe for discharge to early outpatient follow-up investigation (or proceed to earlier inpatient testing). If EKG with ischemic changes or positive troponin, they are not low risk and require normal risk stratification. Progress Note #2: Time: 12:30 Progress Note Patient's having some chronic pain in her low back with radiation to both legs. She been worked up for this and has plans to get epidurals outpatient with the orthopedic surgeons. She is asking for something for the pain for that. NSAIDs would be ideal as she takes Naprosyn twice a day already however given the possibility that she's here for CAD we will just give her 2 mg morphine. She was just your couple days ago because she was taking too much of her hydrocodone. She's no longer on the hydrocodone for that reason. Her chest pain is still negative and her nausea resolved spontaneously early on. We will get a repeat the troponin and EKG. Most likely she is having costochondritis since her tightness and pain is reproduced by direct palpation. Initial ECG Impression Date: Aug 10, 2018 Initial ECG Impression Time: 09:56 Initial ECG Rate: 61 Initial ECG Rhythm: Normal Sinus Initial ECG Intervals: Normal Initial ECG Impression: Normal, Nonspecific Changes Initial ECG Comparisson: Unchanged Comment V2 has some half of a millimeter rise in the ST segment above baseline at there are no contiguous leads with similar findings nor reciprocal findings and this was seen in the old EKG from 4 days ago. There is no clinically significant ST elevation or depression at this time. EKG : EKG Time: 12:17 Rate: 57 Rhythm: Normal Sinus Intervals: Normal ECG Comparisson: Unchanged ECG Impression: Normal, Nonspecific Changes Comment No ST elevation or depression. Diagnostic Imaging Diagonstic Imaging: Xray Plain Films/CT/US/NM/MRI: chest Comments VIA [facility]. [place], [place] NAME: MADINA WIGGINS [facility] REC#: [id number] PT STATUS: REG ER : 1945 PHYSICIAN: YAEL SCHREIBER MD ADMIT DATE: 08/10/18/ER Draft Date of Exam:08/10/18 CHEST 1 VIEW, AP/PA ONLY Portable upright AP view of the chest is obtained with comparison made to study of 08/06/2018. Heart size and pulmonary vascularity are within normal limits. There does appear to be air trapping in both lungs. Slight left basilar atelectasis or pneumonitis is noted. Impression: Slight left basilar atelectasis and/or pneumonitis with probable background emphysema. Otherwise, no acute abnormalities identified. Dictated on workstation # [id number] Dict: 08/10/18 1041 Trans: 08/10/18 1044 CVB [id number] Interpreted by: JOSEPHINE LEE MD Electronically signed by: Reviewed: Reviewed by Me Consults : Consulting Physician: ABBEY ESTRELLA MD Consults Notes Discussed case lab EKG imaging and findings with Dr. Estrella, cardiology and he agrees that we could do a 2-4 hour delta troponin rule out. Follow-up in the clinic in the next 1-2 days. Departure Impression Primary Impression: Chest pain Qualified Codes: R07.9 - Chest pain, unspecified Additional Impression: Costochondritis, acute Disposition: HOME, SELF-CARE Condition: Improved Departure-Patient Inst. Decision time for Depature: 13:40 Referrals: DAKOTA SOLIZ DO (PCP/Family) Primary Care Physician ABBEY ESTRELLA MD Patient Instructions: Angina (DC) Add. Discharge Instructions: If you're having chest pain take one tablet of Zofran place under the tongue allowed to absorb every 5 minutes until the chest pain resolves. If you have to take 3 tablets in a row and cannot get your chest pain under control then you should present to the nearest ER promptly. Call Dr. Estrella's office today and make a follow-up appointment in the next 1-2 days. Copy Copies To 1: DAKOTA SOLIZ DO; ABBEY ESTRELLA MD, TITUS J Aug 10, 2018 10:28
[2018-08-10 10:30] LABS: BASOPHILS # (AUTO) 0.1 10^3/uL (0.0-0.1); BASOPHILS % (AUTO) 2 % (0-10); EOSINOPHILS # (AUTO) 0.2 10^3/uL (0.0-0.3); EOSINOPHILS % (AUTO) 3 % (0-10); HEMATOCRIT 41 % (35-52); HEMOGLOBIN 13.7 G/DL (11.5-16.0); LYMPHOCYTES # (AUTO) 1.4 X 10^3 (1.0-4.0); LYMPHOCYTES % (AUTO) 19 % (12-44); MEAN CORPUSCULAR HEMOGLOBIN 30 PG (25-34); MEAN CORPUSCULAR HGB CONC 34 G/DL (32-36); MEAN CORPUSCULAR VOLUME 90 FL (80-99); MEAN PLATELET VOLUME 9.7 FL (7.4-10.4); MONOCYTES # (AUTO) 0.6 X 10^3 (0.0-1.0); MONOCYTES % (AUTO) 9 % (0-12); NEUTROPHILS # (AUTO) 4.8 X 10^3 (1.8-7.8); NEUTROPHILS % (AUTO) 68 % (42-75); PLATELET COUNT 293 10^3/uL (130-400); RED BLOOD COUNT 4.53 10^6/uL (4.35-5.85); RED CELL DISTRIBUTION WIDTH 12.5 % (10.0-14.5); WHITE BLOOD COUNT 7.1 10^3/uL (4.3-11.0)
[2018-08-10] MEDS ORDERED: NITROGLYCERIN 0.4 MG SL TABS BTL 25'S SL PRN (10:30)
[2018-08-10] MEDS ORDERED: ASPIRIN 81 MG CHEW (CHILDREN'S ASA) PO ONE (10:30)
[2018-08-10] MEDS ORDERED: ACETAMINOPHEN 500 MG TAB (TYLENOL) PO ONE (10:30)
[2018-08-10 10:36] LABS: INR 0.9 (0.8-1.4); PROTHROMBIN TIME PATIENT 12.3 SEC (12.2-14.7)
[2018-08-10 10:42] LABS: ALANINE AMINOTRANSFERASE 12 U/L (0-55); ALBUMIN 4.2 GM/DL (3.2-4.5); ALKALINE PHOSPHATASE 78 U/L (40-136); BILIRUBIN,TOTAL 0.3 MG/DL (0.1-1.0); BUN/CREATININE RATIO 13; CARBON DIOXIDE 26 MMOL/L (21-32); CHLORIDE 99 MMOL/L (98-107); GFR ESTIMATED > 60; GLUCOSE 105 MG/DL (70-105); POTASSIUM 4.1 MMOL/L (3.6-5.0); SODIUM 135 MMOL/L (135-145); TOTAL PROTEIN 6.8 GM/DL (6.4-8.2)
--- NOTE | 2018-08-10 10:44 | Diagnostic Imaging Report ---
Portable upright AP view of the chest is obtained with comparison made to study of 08/06/2018. Heart size and pulmonary vascularity are within normal limits. There does appear to be air trapping in both lungs. Slight left basilar atelectasis or pneumonitis is noted. Impression: Slight left basilar atelectasis and/or pneumonitis with probable background emphysema. Otherwise, no acute abnormalities identified. Dictated by: Dictated on workstation # [id number]
[2018-08-10 10:54] LABS: MYOGLOBIN SERUM 47.7 NG/ML (10.0-92.0)
[2018-08-10] MEDS ORDERED: morphine INJ 10 MG/ML 1ML (SYR OR VIAL) IVP ONE (12:00)
[2018-08-10 13:57] VITALS: BP 137/63
[2018-08-11] MEDS ORDERED: CYCL5TAB PO ×2 (19:19→20:31)
== END 2018-08-10 13:57 | disposition home or self-care (01) ==
LOC: EDUNIT# 09:50 → ER 09:52
DX: R07.89 Other chest pain (principal); M94.0 Chondrocostal junction syndrome [Tietze]; I25.10 Atherosclerotic heart disease of native coronary artery without angina pectoris; I25.2 Old myocardial infarction; I10 Essential (primary) hypertension; F41.9 Anxiety disorder, unspecified; E78.00 Pure hypercholesterolemia, unspecified; Z95.5 Presence of coronary angioplasty implant and graft; Z85.828 Personal history of other malignant neoplasm of skin; Z79.82 Long term (current) use of aspirin; Z90.89 Acquired absence of other organs; Z98.51 Tubal ligation status
CPT/HCPCS: 36415; 71045; 80053; 83735; 83874; 83880; 84484; 85025; 85610; 85730; 93005; 93041; 96361; 96374

== ENCOUNTER 2018-08-11 17:47 | Emergency (ER) | payer MEDICARE ==
[~2018-08-11] VITALS: Ht 177.8 cm; Wt 68.5 kg
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
[2018-08-11 18:11] LABS: BILIRUBIN,URINE NEGATIVE (NEGATIVE); CLARITY,URINE CLEAR; COLOR,URINE YELLOW; GLUCOSE, URINE (UA) NEGATIVE (NEGATIVE); KETONES,URINE NEGATIVE (NEGATIVE); LEUKOCYTE ESTERASE ,URINE NEGATIVE (NEGATIVE); NITRITE,URINE NEGATIVE (NEGATIVE); PH,URINE 8 (5-9); PROTEIN,URINE NEGATIVE (NEGATIVE); UROBILINOGEN,URINE NORMAL (NORMAL)
[2018-08-11] MEDS ORDERED: IOHEXOL 350 MG/ML 100 ML (OMNIPAQUE 350) VIAL IV ONE (18:15)
[2018-08-11] MEDS ORDERED: NS 250 ML (IVPB) BAG IV ONE (18:15)
[2018-08-11 18:20] LABS: BACTERIA,URINE NEGATIVE /HPF
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
[2018-08-11 18:37] LABS: BASOPHILS # (AUTO) 0.1 10^3/uL (0.0-0.1); BASOPHILS % (AUTO) 2 % (0-10); EOSINOPHILS # (AUTO) 0.3 10^3/uL (0.0-0.3); EOSINOPHILS % (AUTO) 4 % (0-10); HEMATOCRIT 43 % (35-52); HEMOGLOBIN 14.8 G/DL (11.5-16.0); LYMPHOCYTES # (AUTO) 1.8 X 10^3 (1.0-4.0); LYMPHOCYTES % (AUTO) 25 % (12-44); MEAN CORPUSCULAR HEMOGLOBIN 30 PG (25-34); MEAN CORPUSCULAR HGB CONC 34 G/DL (32-36); MEAN CORPUSCULAR VOLUME 89 FL (80-99); MEAN PLATELET VOLUME 9.2 FL (7.4-10.4); MONOCYTES # (AUTO) 0.5 X 10^3 (0.0-1.0); MONOCYTES % (AUTO) 7 % (0-12); NEUTROPHILS # (AUTO) 4.5 X 10^3 (1.8-7.8); NEUTROPHILS % (AUTO) 62 % (42-75); PLATELET COUNT 268 10^3/uL (130-400); RED BLOOD COUNT 4.88 10^6/uL (4.35-5.85); RED CELL DISTRIBUTION WIDTH 12.3 % (10.0-14.5); WHITE BLOOD COUNT 7.2 10^3/uL (4.3-11.0)
[2018-08-11 18:43] LABS: PROTHROMBIN TIME PATIENT 12.7 SEC (12.2-14.7)
[2018-08-11 18:53] LABS: ALANINE AMINOTRANSFERASE 16 U/L (0-55); ALBUMIN 4.6 GM/DL (3.2-4.5); ALKALINE PHOSPHATASE 76 U/L (40-136); AMYLASE 46 U/L (25-125); BILIRUBIN,TOTAL 0.4 MG/DL (0.1-1.0); BUN/CREATININE RATIO 12; CALCIUM 9.5 MG/DL (8.5-10.1); CARBON DIOXIDE 26 MMOL/L (21-32); CHLORIDE 100 MMOL/L (98-107); CREATINE KINASE 115 U/L (29-168); CREATININE SERUM 0.84 MG/DL (0.60-1.30); GFR ESTIMATED > 60; GLUCOSE 97 MG/DL (70-105); LIPASE 14 U/L (8-78); MAGNESIUM 2.1 MG/DL (1.8-2.4); POTASSIUM 3.9 MMOL/L (3.6-5.0); SODIUM 137 MMOL/L (135-145); TOTAL PROTEIN 7.2 GM/DL (6.4-8.2)
[2018-08-11 19:00] LABS: CREATINE KINASE MB 1.7 NG/ML (<6.6)
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
[2018-08-11] MEDS ORDERED: CYCL5TAB PO ×2 (19:19→20:31)
[2018-08-11] MEDS ORDERED: KETOROLAC 30 MG/ML VIAL IVP ONE (19:30)
[2018-08-11] MEDS ORDERED: ORPHENADRINE 60 MG/2 ML (NORFLEX) AMP IVP ONE (19:30)
[2018-08-11 19:56] VITALS: BP 177/80
== END 2018-08-11 20:00 | disposition home or self-care (01) ==
LOC: EDUNIT# 17:47 → ER 17:48
DX: S50.11XA Contusion of right forearm, initial encounter (principal); S30.1XXA Contusion of abdominal wall, initial encounter; S20.212A Contusion of left front wall of thorax, initial encounter; G89.29 Other chronic pain; R40.2142 Coma scale, eyes open, spontaneous, at arrival to emergency department; R40.2252 Coma scale, best verbal response, oriented, at arrival to emergency department; R40.2362 Coma scale, best motor response, obeys commands, at arrival to emergency department; I25.10 Atherosclerotic heart disease of native coronary artery without angina pectoris; I25.2 Old myocardial infarction; E78.00 Pure hypercholesterolemia, unspecified; I10 Essential (primary) hypertension; I73.9 Peripheral vascular disease, unspecified; F41.9 Anxiety disorder, unspecified; F17.210 Nicotine dependence, cigarettes, uncomplicated; Z98.61 Coronary angioplasty status; Z85.828 Personal history of other malignant neoplasm of skin; Z98.51 Tubal ligation status; Z95.5 Presence of coronary angioplasty implant and graft; Z90.89 Acquired absence of other organs; Z79.82 Long term (current) use of aspirin; V49.00XA Driver injured in collision with unspecified motor vehicles in nontraffic accident, initial encounter; Y92.481 Parking lot as the place of occurrence of the external cause
CPT/HCPCS: 36415; 71045; 71260; 72170; 73090; 74177; 80053; 81000; 82150; 82550; 82553; 83690; 83735; 84484; 85025; 85610; 85730; 93005; 93041; 96374; 96375

== ENCOUNTER 2018-08-17 12:01 | Observation (INO) | payer MEDICARE ==
[~2018-08-17] VITALS: Ht 177.8 cm; Wt 67.6 kg
[~2018-08-17 12:01] MED LIST changes: +CYCL5TAB PO
[2018-08-17 15:22] LABS: BASOPHILS # (AUTO) 0.1 10^3/uL (0.0-0.1); BASOPHILS % (AUTO) 2 % (0-10); EOSINOPHILS # (AUTO) 0.3 10^3/uL (0.0-0.3); EOSINOPHILS % (AUTO) 4 % (0-10); HEMATOCRIT 44 % (35-52); HEMOGLOBIN 14.6 G/DL (11.5-16.0); LYMPHOCYTES # (AUTO) 1.6 X 10^3 (1.0-4.0); LYMPHOCYTES % (AUTO) 25 % (12-44); MEAN CORPUSCULAR HEMOGLOBIN 30 PG (25-34); MEAN CORPUSCULAR HGB CONC 34 G/DL (32-36); MEAN CORPUSCULAR VOLUME 90 FL (80-99); MEAN PLATELET VOLUME 9.5 FL (7.4-10.4); MONOCYTES # (AUTO) 0.6 X 10^3 (0.0-1.0); MONOCYTES % (AUTO) 10 % (0-12); NEUTROPHILS # (AUTO) 3.9 X 10^3 (1.8-7.8); NEUTROPHILS % (AUTO) 60 % (42-75); PLATELET COUNT 297 10^3/uL (130-400); RED BLOOD COUNT 4.86 10^6/uL (4.35-5.85); RED CELL DISTRIBUTION WIDTH 12.6 % (10.0-14.5); WHITE BLOOD COUNT 6.5 10^3/uL (4.3-11.0)
[2018-08-17 15:24] LABS: BILIRUBIN,URINE NEGATIVE (NEGATIVE); CLARITY,URINE CLEAR; COLOR,URINE YELLOW; GLUCOSE, URINE (UA) NEGATIVE (NEGATIVE); KETONES,URINE NEGATIVE (NEGATIVE); LEUKOCYTE ESTERASE ,URINE NEGATIVE (NEGATIVE); NITRITE,URINE NEGATIVE (NEGATIVE); PH,URINE 8 (5-9); PROTEIN,URINE NEGATIVE (NEGATIVE); UROBILINOGEN,URINE NORMAL (NORMAL)
[2018-08-17 15:39] LABS: INR 0.9 (0.8-1.4); PROTHROMBIN TIME PATIENT 12.6 SEC (12.2-14.7)
[2018-08-17 15:43] LABS: AMPHETAMINE SCREEN, URINE NEGATIVE (NEGATIVE); BARBITURATE SCREEN URINE NEGATIVE (NEGATIVE); BENZODIAZEPINES SCREEN URINE NEGATIVE (NEGATIVE); CANNABINOID SCREEN, URINE NEGATIVE (NEGATIVE); COCAINE SCREEN URINE NEGATIVE (NEGATIVE); METHADONE STAT NEGATIVE (NEGATIVE); METHAMPHETAMINE SCREEN URINE S NEGATIVE (NEGATIVE); OPIATE SCREEN URINE NEGATIVE (NEGATIVE); OXYCODONE STAT NEGATIVE (NEGATIVE); PROPOXYPHENE STAT NEGATIVE (NEGATIVE); TRICYCLIC ANTIDEPRESSANTS SCRE NEGATIVE (NEGATIVE)
[2018-08-17 15:49] LABS: ALANINE AMINOTRANSFERASE 12 U/L (0-55); ALBUMIN 4.5 GM/DL (3.2-4.5); ALKALINE PHOSPHATASE 80 U/L (40-136); BILIRUBIN,TOTAL 0.3 MG/DL (0.1-1.0); BUN/CREATININE RATIO 8; CALCIUM 9.6 MG/DL (8.5-10.1); CARBON DIOXIDE 28 MMOL/L (21-32); CHLORIDE 100 MMOL/L (98-107); CREATININE SERUM 0.73 MG/DL (0.60-1.30); GFR ESTIMATED > 60; GLUCOSE 101 MG/DL (70-105); MAGNESIUM 2.1 MG/DL (1.8-2.4); POTASSIUM 3.4 MMOL/L (3.6-5.0); SODIUM 140 MMOL/L (135-145); TOTAL PROTEIN 7.6 GM/DL (6.4-8.2)
[2018-08-17 15:52] LABS: BACTERIA,URINE NEGATIVE /HPF; SQUAMOUS EPITHELIAL CELL,UR RARE /HPF; WBC,URINE RARE /HPF
[2018-08-17 16:09] LABS: TSH (THYROID ANALYZER) 0.37 UIU/ML (0.35-4.94)
--- NOTE | 2018-08-17 16:21 | Diagnostic Imaging Report ---
Patient History: Confusion, blurry vision. Technique: Single frontal view of the chest. Comparison: 08/11/2018 FINDINGS: The lung volumes are normal. No focal consolidation is seen. No large pleural effusion or pneumothorax is seen. The cardiomediastinal silhouette is normal in size and contour. No acute osseous abnormality is seen. Surgical clips are seen in the neck. IMPRESSION: No acute pulmonary abnormality seen. Dictated by: Dictated on workstation # [id number]
--- NOTE | 2018-08-17 16:25 | Diagnostic Imaging Report ---
Indication: Confusion. Comparison: 05/15/2013 Technique: Routine noncontrast CT of the head was performed. Findings: There is an area of decreased attenuation and loss of the normal silva-white matter junction differentiation involving the right occipital lobe. Area in question measures 4.5 x 2.3 cm and is consistent with acute or subacute infarct. There is no evidence of hemorrhagic transformation. There is no appreciable associated mass effect. No other evidence of intra-or extraaxial intracranial hemorrhage is seen. The ventricles and cortical sulci are otherwise normal in size and contour. There is no midline shift. Basal cisterns are maintained. No focal calvarial lesions are identified. Included portions of the paranasal sinuses and mastoid air cells are clear. Impression: 1. 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 No hemorrhagic transformation. Results were discussed with Dr. Astudillo by Dr. Crowley at approximately 1620 hrs on 08/17/2018. Dictated by: Dictated on workstation # [id number]
[2018-08-17] MEDS ORDERED: fentaNYL INJECTION 100 MCG/2 ML AMP IVP STA (16:36)
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
[2018-08-17] MEDS ORDERED: IOHEXOL 350 MG/ML 100 ML (OMNIPAQUE 350) VIAL IV ONE (17:15)
[2018-08-17] MEDS ORDERED: NS 250 ML (IVPB) BAG IV ONE (17:15)
--- NOTE | 2018-08-17 17:57 | Diagnostic Imaging Report ---
PROCEDURE: CT angiography of the head and CT angiography of the neck with and without contrast. TECHNIQUE: Contiguous noncontrast images were obtained from the skull base through the vertex. After intravenous contrast administration, helical CT angiography of the neck was performed. Source data was reformatted into multiple MIP projections. Delayed post contrast acquisition was also obtained. INDICATION: "Follow up for stroke." I have no additional history or description of the neurological impairment which is causing a suspicion for a stroke. COMPARISON: Study correlated with CT angio neck 04/23/2018. FINDINGS: CT ANGIO NECK: There is a right-sided carotid stent. Its lumen proximally is patent; however, its lumen at its mid to distal third is occluded, and the cervical right internal carotid above that level is occluded. The left common and internal carotid arteries are opacified with calcified plaque at the left bulb and bifurcation resulting in maybe 30% luminal stenosis. The vertebrals are patent. CT ANGIO HEAD: The intracranial right ICA is occluded at the skull base. There is likely some cross-filling opacifying its clinoid and supraclinoid segments. We do note the right A1 segment is hypoplastic. There is opacification of the bilateral anterior cerebral arteries. Left middle cerebral arterial segments are patent. There is opacification of the small caliber M1 and M2 segments of the right middle cerebral artery. Its M3 and M4 segments show no obvious intraluminal filling defect. The basilar is patent. The down filler are unremarkable. The right PLANT TENDER has origin. IMPRESSION: CT ANGIO NECK: A right-sided carotid stent is occluded at its mid to distal third with occlusion throughout the remaining right cervical ICA. There is left carotid plaque in the neck without hemodynamically significant stenosis. CT ANGIO HEAD: 1. Intracranial ICA occlusion at the skull base with reconstitution likely cross or backflowing at its diminutive supraclinoid segment. There is no MCA thrombus visualized; however, the right MCA segments show relative hypodensity and hypoenhancement when compared to the larger and more vigorously enhanced left side. Posterior circulation is unremarkable. 2. Edema and sulcal effacement in the right posterior parieto-occipital cortex, unchanged. Dictated by: Dictated on workstation # [id number]
[2018-08-17 19:40] VITALS: BP 164/79
[2018-08-17] MEDS ORDERED: CATHETER FLUSH 10 ML SYR IV PRN (20:00)
[2018-08-17] MEDS: fentaNYL INJECTION 100 MCG/2 ML AMP IV PRN ×2 (20:13→22:48)
[2018-08-17 22:17] VITALS: BP 160/72
[2018-08-17] MEDS: GABAPENTIN 600 MG (NEURONTIN) TAB PO SCH (22:38)
[2018-08-17] MEDS: CARVEDILOL 12.5 MG (COREG) TABLET PO SCH (22:38)
[2018-08-17] MEDS: rOPINIRole 0.25 MG (REQUIP) TAB PO SCH (22:39)
[2018-08-17] MEDS: CATHETER FLUSH 10 ML SYR IV SCH (22:49)
[2018-08-18] VITALS (8 sets, daily range): BP systolic 120–174; BP diastolic 58–72
[2018-08-18] MEDS: fentaNYL INJECTION 100 MCG/2 ML AMP IV PRN ×6 (02:39→21:31)
[2018-08-18] MEDS: CATHETER FLUSH 10 ML SYR IV SCH ×3 (05:13→22:07)
[2018-08-18 06:16] LABS: BASOPHILS # (AUTO) 0.1 10^3/uL (0.0-0.1); BASOPHILS % (AUTO) 2 % (0-10); EOSINOPHILS # (AUTO) 0.3 10^3/uL (0.0-0.3); EOSINOPHILS % (AUTO) 5 % (0-10); HEMATOCRIT 42 % (35-52); HEMOGLOBIN 14.7 G/DL (11.5-16.0); LYMPHOCYTES # (AUTO) 1.5 X 10^3 (1.0-4.0); LYMPHOCYTES % (AUTO) 26 % (12-44); MEAN CORPUSCULAR HEMOGLOBIN 31 PG (25-34); MEAN CORPUSCULAR HGB CONC 35 G/DL (32-36); MEAN CORPUSCULAR VOLUME 89 FL (80-99); MEAN PLATELET VOLUME 9.2 FL (7.4-10.4); MONOCYTES # (AUTO) 0.6 X 10^3 (0.0-1.0); MONOCYTES % (AUTO) 10 % (0-12); NEUTROPHILS # (AUTO) 3.2 X 10^3 (1.8-7.8); NEUTROPHILS % (AUTO) 57 % (42-75); PLATELET COUNT 278 10^3/uL (130-400); RED BLOOD COUNT 4.79 10^6/uL (4.35-5.85); RED CELL DISTRIBUTION WIDTH 12.6 % (10.0-14.5); WHITE BLOOD COUNT 5.7 10^3/uL (4.3-11.0)
[2018-08-18] MEDS: ALPRAZolam 0.25 MG (XANAX) TAB PO PRN ×3 (06:36→14:54)
[2018-08-18 06:39] LABS: ALANINE AMINOTRANSFERASE 13 U/L (0-55); ALBUMIN 4.3 GM/DL (3.2-4.5); ALKALINE PHOSPHATASE 74 U/L (40-136); BILIRUBIN,TOTAL 0.4 MG/DL (0.1-1.0); BUN/CREATININE RATIO 10; CALCIUM 9.3 MG/DL (8.5-10.1); CARBON DIOXIDE 23 MMOL/L (21-32); CHLORIDE 103 MMOL/L (98-107); CREATININE SERUM 0.72 MG/DL (0.60-1.30); GFR ESTIMATED > 60; GLUCOSE 103 MG/DL (70-105); POTASSIUM 3.9 MMOL/L (3.6-5.0); SODIUM 138 MMOL/L (135-145); TOTAL PROTEIN 7.2 GM/DL (6.4-8.2)
--- NOTE | 2018-08-18 07:48 | History & Physicial ---
History of Present Illness History of Present Illness Reason for visit/HPI Patient states she woke up confused and had a headache. Call Dr. Ramos's office and told by the nurse to go to the emergency room. At the emergency room NIH score was 0. Patient states she had a headache on waking today. Patient also did admit to some chest pain. Patient had a CAT scan of the head which showed a stroke. Patient also has been complaining of leg pain. Patient had a stent in the right carotid. Date of Admission Aug 17, 2018 at 18:30 Time Seen by Provider: 07:42 I consulted on this patient on 08/18/18 07:42 Attending Physician Patrick Soliz DO Admitting Physician Patrick Soliz DO Consult Allergies and Home Medications Allergies Coded Allergies: No Known Drug Allergies (Unverified , 04/20/18) Home Medications Amlodipine Besylate 5 Mg Tablet, 10 MG PO DAILY, (Reported) Aspirin 81 Mg Tab.chew, 81 MG PO DAILY, (Reported) Benazepril HCl 40 Mg Tab, 40 MG PO DAILY, (Reported) Carvedilol 12.5 Mg Tablet, 12.5 MG PO BID, (Reported) Cholecalciferol (Vitamin D3) 400 Unit Tablet, 400 UNIT PO DAILY, (Reported) Cyclobenzaprine HCl 5 Mg Tablet, 5-10 MG PO Q8H Prescribed by: CRISTINA DONALD on 08/11/182030 Fenofibrate 54 Mg Tablet, 54 MG PO HS, (Reported) Gabapentin 800 Mg Tablet, 800 MG PO TID, (Reported) Hydrochlorothiazide 25 Mg Tablet, 25 MG PO DAILY, (Reported) Hydrocodone Bit/Acetaminophen 1 Tab Tab, 1-2 TAB PO 4-6HR PRN for PAIN Prescribed by: NEGAR SINGER on 04/21/18 1418 Levothyroxine Sodium 100 Mcg Tablet, 100 MCG PO DAILY Prescribed by: NEGAR SINGER on 04/21/18 1419 Patient Home Medication List Home Medication List Reviewed: No Past Lazwnmt-Znboym-Paxbnk Hx Patient Social History Marrital Status: Employed/Student: unemployed Alcohol Use: Denies Use Recreational Drug Use: No Smoking Status: Current Everyday Smoker Type Used: Cigarettes 2nd Hand Smoke Exposure: Yes Physical Abuse Screen: No Sexual Abuse: No Recent Foreign Travel: No Contact w/other who traveled: No Recent Hopitalizations: No Recent Infectious Disease Expo: No Immunizations Up To Date Tetanus Booster (TDap): Less than 5yrs Date of Pneumonia Vaccine: Sep 11, 2015 Date of Influenza Vaccine: Sep 15, 2017 Seasonal Allergies Seasonal Allergies: No Surgeries Yes (RIGHT CAROTID STENT AND ENDARTERECTOMY; THYROIDECTOMY) Appendectomy, Cardiac, Coronary Stent, Orthopedic, Thyroidectomy, Tubal Ligation , Vascular Surgery Respiratory No Cardiovascular Yes (STENTS X4, ANGIOPLASTY X 1; RIGHT CAROTID ENDARTERECTOMY AND STENT) Coronary Artery Disease, Heart Attack, Heart Murmur, High Cholesterol, Hypertension, Peripheral Vascular, Valvular Heart Disease Neurological Yes Neuropathy Reproductive System Hx Reproductive Disorders: No Sexually Transmitted Disease: No 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 Genitourinary No Gastrointestinal No Musculoskeletal Yes Degenerate Disk Disease, Arthritis, Chronic Back Pain Endocrine History of Endocrine Disorders: Yes (THYROID NODULES) HEENT History of HEENT Disorders: No Loss of Vision: Bilateral Hearing Impairment: Denies Cancer Yes (SKIN X 36) Skin Did You Recieve Any Treatments: Yes Type of Treatment: Surgical Intervention Psychosocial History of Psychiatric Problem: Yes Behavioral Health Disorders: Anxiety Integumentary History of Skin or Integumenta: Yes (SKIN CANCER) Blood Transfusions History of Blood Disorders: No Adverse Reaction to a Blood Tr: No (N/A) Family Medical History Significant Family History: No Pertinent Family Hx Family Hx: Cardiovascular disease 19 MOTHER, G8 BROTHER, G8 BROTHER, G8 BROTHER, Neoplasm 19 FATHER, Respiratory disorder G8 SISTER Review of Systems Constitutional: weakness EENTM: no symptoms reported Respiratory: no symptoms reported Cardiovascular: chest pain Gastrointestinal: no symptoms reported Genitourinary: no symptoms reported Physical Exam Vital Signs Vital Signs - First Documented 08/17/18 14:00 Temp 96.9 Pulse 70 Resp 18 B/P (MAP) 165/71 (102) Pulse Ox 98 O2 Delivery Room Air Capillary Refill : Less Than 3 Seconds Height, Weight, BMI Height: 5'10.00" Weight: 149lbs. 0.0oz. 67.994604wl; 21.4 BMI Method:Stated General Appearance: No Apparent Distress, WD/WN Eyes: Bilateral Eye Normal Inspection HEENT: Normal ENT Inspection Neck: Full Range of Motion, Normal Inspection, Non Tender Respiratory: Lungs Clear, No Accessory Muscle Use, No Respiratory Distress Cardiovascular: Regular Rate, Rhythm, No Murmur Gastrointestinal: Non Tender, Soft Extremity: Normal Inspection, Normal Range of Motion, Other (Babinski sign negative) Assessment/Plan Assessment and Plan Subacute CVA. Right carotid stenosis. Leg pain. Coronary artery disease.. Hypothyroid. Cancer of the thyroid. Admission Diagnosis Admission Status: Inpatient Order (span 2 midnights) Reason for Inpatient Admission: CVA subacute. Hypertension. Confusion Weakness Clinical Quality Measures DVT/VTE Risk/Contraindication: Risk Factor Score Per Nursin RFS Level Per Nursing on Admit: 4+=Very High PATRICK SOLIZ DO Aug 18, 2018 07:48
[2018-08-18] MEDS: CARVEDILOL 12.5 MG (COREG) TABLET PO SCH (08:43)
[2018-08-18] MEDS ORDERED: GADOBUTROL 7.5 MMOL/7.5 ML (GADAVIST) VIAL IV ONE (09:15)
--- NOTE | 2018-08-18 09:40 | Diagnostic Imaging Report ---
PROCEDURE: MR imaging of the brain with and without contrast. TECHNIQUE: Multiplanar, multisequence MR imaging of the brain was performed with and without contrast. INDICATION: Subacute CVA. COMPARISON: Correlation is made with CT angiogram of the head and neck performed one day earlier. FINDINGS: Ventricles are appropriate for the patient's age. No sulcal effacement is seen. There is no midline shift or acute intracranial hemorrhage identified. There are several areas of diffusion restriction noted in the right cerebral hemisphere. An area of restriction in the right posterior parietal-occipital lobe is noted. There is some restriction along the insular cortex on the right. There is also some restriction in the deep white matter and right garcia radiata and centrum semiovale. These areas also demonstrate contrast enhancement on the postcontrast images and are consistent with subacute infarcts. Loss of the normal expected flow-void in the right carotid siphon is seen consistent with known distal right ICA occlusion. The left carotid siphon demonstrates normal flow void. The corpus callosum is unremarkable. The sella and parasellar structures are unremarkable. IMPRESSION: Subacute infarcts in the right cerebral hemisphere, as described which appeared to be in the right MCA territory. No acute intracranial hemorrhage is detected. Dictated by: Dictated on workstation # [id number]
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
[2018-08-18] MEDS ORDERED: FLU QUADRIvalent (5+ YOA) 2018-2019 (AFLURIA) 0.5 ML IM ONE (10:15)
[2018-08-18 10:28] LABS: CHOLESTEROL 235 MG/DL (< 200); HDL CHOLESTEROL 44 MG/DL (40-60); TRIGLYCERIDES 138 MG/DL (<150); VLDL CHOLESTEROL 28 MG/DL (5-40)
[2018-08-18] MEDS ORDERED: GABA600T2 PO ×2 (10:56)
[2018-08-18] MEDS ORDERED: LEVO112T55 PO (10:56)
[2018-08-18] MEDS ORDERED: ROPI0.5T2 PO (10:56)
[2018-08-18] MEDS ORDERED: CA C1TAB80 PO (10:56)
[2018-08-18] MEDS ORDERED: AMLO10TA6 PO (10:56)
[2018-08-18] MEDS ORDERED: TRAM50TA2 PO (10:56)
[2018-08-18] MEDS ORDERED: NAPR-915 PO (10:56)
[2018-08-18] MEDS ORDERED: ALPR0.5T7 PO (10:56)
[2018-08-18] MEDS ORDERED: CYCL5TAB PO (10:56)
[2018-08-18] MEDS ORDERED: BISA-65 PO (10:59)
--- NOTE | 2018-08-18 11:13 | Consultation-Cardiology ---
HPI-Cardiology Cardiology Consultation Date of Consultation 08/18/18 Date of Admission Time Seen by Provider: 08:00 Indication: acute CVA HPI 72 years old lady with history of hypertension, hyperlipidemia. Has been complaining of generalized body ache, back pain and lower extremity pain. Started having episodes of confusion and had weakness in her lower extremity about 2 weeks ago, improved spontaneously. Continue to have recurrent pain. Yesterday she contacted my office and did not feel well, has significant headache. Was sent to the emergency room and admitted. Diagnosed with subacute CVA. Upper my evaluation this morning patient is still having back and lower extremities pain. No weakness was reported. Denied any chest pain. Having headache. Having blurred vision and difficulty reading the Bible. No syncope. Home Medications & Allergies Allergies: Coded Allergies: No Known Drug Allergies (Unverified , 04/20/18) Home Medication List Reviewed: Yes [id number] Hx Patient Social History Marital Status: Employed/Student: unemployed Alcohol Use: Denies Use Recreational Drug Use: No Smoking Status: Current Everyday Smoker Type Used: Cigarettes 2nd Hand Smoke Exposure: Yes Recent Foreign Travel: No Recent Infectious Disease Expo: No Recent Hopitalizations: No Physical Abuse Screen: No Sexual Abuse: No Immunizations Up To Date Tetanus Booster (TDap): Less than 5yrs Date of Pneumonia Vaccine: Sep 11, 2015 Date of Influenza Vaccine: Sep 15, 2017 Past Medical History Past medical history as described below Family Medical History Significant Family History: No Pertinent Family Hx Family History: Cardiovascular disease 19 MOTHER, G8 BROTHER, G8 BROTHER, G8 BROTHER, Neoplasm 19 FATHER, Respiratory disorder G8 SISTER Review of Systems Constitutional: see HPI, dizziness, malaise, weakness EENTM: see HPI, blurred vision, nose congestion Respiratory: see HPI, dyspnea on exertion Cardiovascular: see HPI Gastrointestinal: no symptoms reported, see HPI Genitourinary: no symptoms reported, see HPI Musculoskeletal: see HPI, back pain, joint pain, muscle pain, muscle cramps Skin: no symptoms reported, see HPI Psychiatric/Neurological: No Symptoms Reported, See HPI, Anxiety, Headache, Numbness, Paresthesia Reviewed Test Results Reviewed Test Results Lab Laboratory Tests Test 08/17/18 14:59 08/17/18 15:04 08/18/18 05:45 Range/Units White Blood Count 6.5 5.7 4.3-11.0 10^3/uL Red Blood Count 4.86 4.79 4.35-5.85 10^6/uL Hemoglobin 14.6 14.7 11.5-16.0 G/DL Hematocrit 44 42 35-52 % Mean Corpuscular Volume 90 89 80-99 FL Mean Corpuscular Hemoglobin 30 31 25-34 PG Mean Corpuscular Hemoglobin Concent 34 35 32-36 G/DL Red Cell Distribution Width 12.6 12.6 10.0-14.5 % Platelet Count 297 278 130-400 10^3/uL Mean Platelet Volume 9.5 9.2 7.4-10.4 FL Neutrophils (%) (Auto) 60 57 42-75 % Lymphocytes (%) (Auto) 25 26 12-44 % Monocytes (%) (Auto) 10 10 0-12 % Eosinophils (%) (Auto) 4 5 0-10 % Basophils (%) (Auto) 2 2 0-10 % Neutrophils # (Auto) 3.9 3.2 1.8-7.8 X 10^3 Lymphocytes # (Auto) 1.6 1.5 1.0-4.0 X 10^3 Monocytes # (Auto) 0.6 0.6 0.0-1.0 X 10^3 Eosinophils # (Auto) 0.3 0.3 0.0-0.3 10^3/uL Basophils # (Auto) 0.1 0.1 0.0-0.1 10^3/uL Prothrombin Time 12.6 12.2-14.7 SEC INR Comment 0.9 0.8-1.4 Activated Partial Thromboplast Time 28 24-35 SEC Sodium Level 140 138 135-145 MMOL/L Potassium Level 3.4 L 3.9 3.6-5.0 MMOL/L Chloride Level 100 103 98-107 MMOL/L Carbon Dioxide Level 28 23 21-32 MMOL/L Anion Gap 12 12 5-14 MMOL/L Blood Urea Nitrogen 6 L 7 7-18 MG/DL Creatinine 0.73 0.72 0.60-1.30 MG/DL Estimat Glomerular Filtration Rate > 60 > 60 BUN/Creatinine Ratio 8 10 Glucose Level 101 103 70-105 MG/DL Calcium Level 9.6 9.3 8.5-10.1 MG/DL Corrected Calcium 9.2 9.1 8.5-10.1 MG/DL Magnesium Level 2.1 1.8-2.4 MG/DL Total Bilirubin 0.3 0.4 0.1-1.0 MG/DL Aspartate Amino Transf (AST/SGOT) 21 20 5-34 U/L Alanine Aminotransferase (ALT/SGPT) 12 13 0-55 U/L Alkaline Phosphatase 80 74 40-136 U/L Total Protein 7.6 7.2 6.4-8.2 GM/DL Albumin 4.5 4.3 3.2-4.5 GM/DL TSH [place] Testing 0.37 0.35-4.94 UIU/ML Serum Alcohol < 10 <10 MG/DL Urine Color YELLOW Urine Clarity CLEAR Urine pH 8 5-9 Urine Specific [place] 1.010 L 1.016-1.022 Urine Protein NEGATIVE NEGATIVE Urine Glucose (UA) NEGATIVE NEGATIVE Urine Ketones NEGATIVE NEGATIVE Urine Nitrite NEGATIVE NEGATIVE Urine Bilirubin NEGATIVE NEGATIVE Urine Urobilinogen NORMAL NORMAL MG/DL Urine Leukocyte Esterase NEGATIVE NEGATIVE Urine RBC (Auto) NEGATIVE NEGATIVE Urine RBC NONE /HPF Urine WBC RARE /HPF Urine Squamous Epithelial Cells RARE /HPF Urine Crystals NONE /LPF Urine Bacteria NEGATIVE /HPF Urine Casts NONE /LPF Urine Mucus NEGATIVE /LPF Urine Culture Indicated NO Urine Opiates Screen NEGATIVE NEGATIVE Urine Oxycodone Screen NEGATIVE NEGATIVE Urine Methadone Screen NEGATIVE NEGATIVE Urine Propoxyphene Screen NEGATIVE NEGATIVE Urine Barbiturates Screen NEGATIVE NEGATIVE Ur Tricyclic Antidepressants Screen NEGATIVE NEGATIVE Urine Phencyclidine Screen NEGATIVE NEGATIVE Urine Amphetamines Screen NEGATIVE NEGATIVE Urine Methamphetamines Screen NEGATIVE NEGATIVE Urine Benzodiazepines Screen NEGATIVE NEGATIVE Urine Cocaine Screen NEGATIVE NEGATIVE Urine Cannabinoids Screen NEGATIVE NEGATIVE Troponin I < 0.30 <0.30 NG/ML Triglycerides Level 138 <150 MG/DL Cholesterol Level 235 H < 200 MG/DL LDL Cholesterol Direct 182 H 1-129 MG/DL VLDL Cholesterol 28 5-40 MG/DL HDL Cholesterol 44 40-60 MG/DL Physical Exam Vital Signs Vital Signs - First Documented 08/17/18 14:00 Temp 96.9 Pulse 70 Resp 18 B/P (MAP) 165/71 (102) Pulse Ox 98 O2 Delivery Room Air Capillary Refill : Less Than 3 Seconds Height, Weight, BMI Height: 5'10.00" Weight: 149lbs. 0.0oz. [id number]; 21.4 BMI Method:Stated General Appearance: WD/WN, Mild Distress Eyes: Bilateral Eye Normal Inspection, Bilateral Eye PERRL, Bilateral Eye EOMI HEENT: PERRL/EOMI, TMs Normal, Normal ENT Inspection, Pharynx Normal Neck: Full Range of Motion, Normal Inspection, Non Tender, Supple, Carotid Bruit Respiratory: Chest Non Tender, Lungs Clear, Normal Breath Sounds, No Accessory Muscle Use, No Respiratory Distress Cardiovascular: Regular Rate, Rhythm, No Edema, No Gallop, No JVD, Normal Peripheral Pulses, Systolic Murmur Gastrointestinal: Normal Bowel Sounds, No Organomegaly, No Pulsatile Mass, Non Tender, Soft Back: Normal Inspection, No Vertebral Tenderness, CVA Tenderness (R) Extremity: Normal Capillary Refill, Normal Inspection, Normal Range of Motion, Non Tender, No Calf Tenderness, No Pedal Edema Neurologic/Psychiatric: Alert, Oriented x3, Normal Mood/Affect, Other ( confusion and numbness.) Skin: Normal Color, Warm/Dry Lymphatic: No Adenopathy A/P-Cardiology Admission Diagnosis Subacute CVA Carotid stenosis Hypertension Spinal stenosis Assessment/Plan Subacute CVA, weakness and blurred vision, reporting improvement in her weakness , still having blurred vision. Stroke was at the right MCA territory. Has total occlusion of the right carotid artery. History of right carotid endarterectomy October 2016 and then right carotid stenting done in May 2017. Maintained on aspirin, I will restart Plavix at this time. Coronary artery disease, history of multiple interventions in the past. Last cardiac catheterization was done in July 2014. Had 50 percent stenosis in the mid circumflex artery, confirmed with flow wire. Had a patent stent in the LAD, diagonal artery, patent 2 stents in the right coronary artery. Small vessel disease in the distal right coronary artery. Treated conservatively. Stress test was done in July 2018 showing no significant ischemia or infarction, continue to monitor Hypertension, restart home medication monitor blood pressure Hyperlipidemia, continue to monitor lipids History of transient episode of asystole after nitroglycerin injection during left heart catheterization, continue to monitor at this time Tobaccoism, patient was educated and instructed in length on smoking cessation. Carotid artery stenosis-status post right carotid endarterectomy in October 2016, and right carotid stenting May [address] Plascencia, currently the right carotid artery appeared to be occluded. Thyroid nodule, status post resection done by Dr. Tarango. Lower extremity cramps and pain, reporting some improvement. Has history of spinal stenosis. BATOOL was normal, still having lower back pain and extremity pain Anxiety. Clinical Quality Measures DVT/VTE Risk/Contraindication: Risk Factor Score Per Nursin RFS Level Per Nursing on Admit: 4+=Very High ABBEY BURNETT MD Aug 18, 2018 11:13
[2018-08-18] MEDS ORDERED: CLOPIDOGREL 75 MG (PLAVIX) TABLET PO NR (11:30)
[2018-08-18] MEDS: ASPIRIN 81 MG CHEW (CHILDREN'S ASA) PO SCH (11:35)
[2018-08-18] MEDS ORDERED: NON-FORMULARY MEDICATION 1 EA EA (Cyclobenzaprine HCl 5 MG) PO PRN (14:30)
[2018-08-18] MEDS ORDERED: BISACODYL 5 MG (DULCOLAX) TABLET PO SCH (14:30)
[2018-08-18] MEDS ORDERED: CYCLOBENZAPRINE 10 MG (FLEXERIL) TAB PO PRN (14:45)
[2018-08-18] MEDS: GABAPENTIN 600 MG (NEURONTIN) TAB PO SCH ×2 (14:51→21:30)
[2018-08-18] MEDS ORDERED: CARVEDILOL 12.5 MG (COREG) TABLET PO SCH (21:00)
[2018-08-18] MEDS: rOPINIRole 0.25 MG (REQUIP) TAB PO SCH (21:30)
[2018-08-19 00:06] VITALS: BP 134/65
[2018-08-19 04:00] VITALS: BP 150/70
[2018-08-19] MEDS: CATHETER FLUSH 10 ML SYR IV SCH (05:41)
[2018-08-19] MEDS: fentaNYL INJECTION 100 MCG/2 ML AMP IV PRN (05:44)
[2018-08-19 05:59] LABS: BASOPHILS # (AUTO) 0.1 10^3/uL (0.0-0.1); BASOPHILS % (AUTO) 2 % (0-10); EOSINOPHILS # (AUTO) 0.2 10^3/uL (0.0-0.3); EOSINOPHILS % (AUTO) 3 % (0-10); HEMATOCRIT 41 % (35-52); HEMOGLOBIN 13.9 G/DL (11.5-16.0); LYMPHOCYTES # (AUTO) 1.7 X 10^3 (1.0-4.0); LYMPHOCYTES % (AUTO) 28 % (12-44); MEAN CORPUSCULAR HEMOGLOBIN 31 PG (25-34); MEAN CORPUSCULAR HGB CONC 34 G/DL (32-36); MEAN CORPUSCULAR VOLUME 90 FL (80-99); MEAN PLATELET VOLUME 9.4 FL (7.4-10.4); MONOCYTES # (AUTO) 0.6 X 10^3 (0.0-1.0); MONOCYTES % (AUTO) 10 % (0-12); NEUTROPHILS # (AUTO) 3.5 X 10^3 (1.8-7.8); NEUTROPHILS % (AUTO) 57 % (42-75); PLATELET COUNT 313 10^3/uL (130-400); RED BLOOD COUNT 4.56 10^6/uL (4.35-5.85); RED CELL DISTRIBUTION WIDTH 12.4 % (10.0-14.5); WHITE BLOOD COUNT 6.2 10^3/uL (4.3-11.0)
[2018-08-19] MEDS ORDERED: LEVOTHYROXINE 112 MCG (LEVOTHROID) TAB PO SCH ×2 (06:00→06:30)
[2018-08-19] MEDS: ALPRAZolam 0.25 MG (XANAX) TAB PO PRN (06:05)
[2018-08-19 06:20] LABS: ALANINE AMINOTRANSFERASE 9 U/L (0-55); ALBUMIN 3.8 GM/DL (3.2-4.5); ALKALINE PHOSPHATASE 69 U/L (40-136); BILIRUBIN,TOTAL 0.3 MG/DL (0.1-1.0); BUN/CREATININE RATIO 14; CALCIUM 9.4 MG/DL (8.5-10.1); CARBON DIOXIDE 26 MMOL/L (21-32); CHLORIDE 101 MMOL/L (98-107); CREATININE SERUM 0.74 MG/DL (0.60-1.30); GFR ESTIMATED > 60; GLUCOSE 96 MG/DL (70-105); POTASSIUM 3.9 MMOL/L (3.6-5.0); SODIUM 136 MMOL/L (135-145); TOTAL PROTEIN 6.3 GM/DL (6.4-8.2)
--- NOTE | 2018-08-19 07:38 | Progress Note (SOAP) ---
Subjective Time Seen by a Provider: 07:35 Subjective/Events-last exam Patient doing better today. Patient has headache. Patient LDL elevated. Patient stopped statin to due leg pain Objective Exam Vital Signs Date Time Temp Pulse Resp B/P (MAP) Pulse Ox O2 Delivery O2 Flow Rate FiO2 08/19/18 04:00 97.8 67 16 150/70 (96) 96 Room Air 08/19/18 01:00 62 08/19/18 00:06 97.8 64 20 134/65 (88) 97 Room Air 08/18/18 19:50 98.6 64 20 120/70 (87) 98 Room Air 08/18/18 19:00 63 08/18/18 16:20 98.3 66 16 130/72 (91) 96 Room Air 08/18/18 12:00 97.4 64 16 174/64 (100) 97 Room Air 08/18/18 08:00 97.8 62 18 133/63 (86) 95 Room Air I & O 08/19/18 07:00 Intake Total 1870 ml Output Total 2150 ml Balance -280 ml Capillary Refill : Less Than 3 Seconds General Appearance: No Apparent Distress, Thin HEENT: Normal ENT Inspection Neck: Normal Inspection Respiratory: No Accessory Muscle Use, No Respiratory Distress Cardiovascular: Regular Rate, Rhythm, No Murmur Gastrointestinal: non tender Results Lab Laboratory Tests 08/19/18 05:16 Laboratory Tests 08/19/18 05:16: White Blood Count 6.2, Red Blood Count 4.56, Hemoglobin 13.9, Hematocrit 41, Mean Corpuscular Volume 90, Mean Corpuscular Hemoglobin 31, Mean Corpuscular Hemoglobin Concent 34, Red Cell Distribution Width 12.4, Platelet Count 313, Mean Platelet Volume 9.4, Neutrophils (%) (Auto) 57, Lymphocytes (%) (Auto) 28, Monocytes (%) (Auto) 10, Eosinophils (%) (Auto) 3, Basophils (%) (Auto) 2, Neutrophils # (Auto) 3.5, Lymphocytes # (Auto) 1.7, Monocytes # (Auto) 0.6, Eosinophils # (Auto) 0.2, Basophils # (Auto) 0.1, Sodium Level 136, Potassium Level 3.9, Chloride Level 101, Carbon Dioxide Level 26, Anion Gap 9, Blood Urea Nitrogen 10, Creatinine 0.74, Estimat Glomerular Filtration Rate > 60, BUN/ Creatinine Ratio 14, Glucose Level 96, Calcium Level 9.4, Corrected Calcium 9.6 , Total Bilirubin 0.3, Aspartate Amino Transf (AST/SGOT) 17, Alanine Aminotransferase (ALT/SGPT) 9, Alkaline Phosphatase 69, Total Protein 6.3L, Albumin 3.8 Assessment/Plan Assessment/Plan Assess & Plan/Chief Complaint Subacute CVA. Carotid stenosis. Carotid occlusion. Hypertension. Spinal stenosis. Hyperlipidemia. Thyroid removed Clinical Quality Measures Admission Status Admission Dx Subacute CVA. Right carotid stenosis. Leg pain. Coronary artery disease.. Hypothyroid. Cancer of the thyroid. DVT/VTE Risk/Contraindication: Risk Factor Score Per Nursin RFS Level Per Nursing on Admit: 4+=Very High DAKOTA SOLIZ DO Aug 19, 2018 07:37
[2018-08-19] MEDS ORDERED: GABAPENTIN 600 MG (NEURONTIN) TAB PO SCH (08:00)
[2018-08-19] MEDS ORDERED: ALPRAZolam 0.25 MG (XANAX) TAB PO NR (08:15)
[2018-08-19 08:22] VITALS: BP 130/80
--- NOTE | 2018-08-19 08:32 | Cardiology Progress Note ---
Subjective Date Seen by Provider: Aug 19, 2018 Time Seen by Provider: 08:30 Subjective/Events-last exam Patient is laying down in bed, still very anxious, still having lower except he pain, reporting overall improvement, took Xanax earlier today and asking to take additional dose Review of Systems General: No Chills, No Night Sweats, No Fatigue, No Malaise, No Appetite, No Other HEENT: No Head Aches, No Visual Changes, No Eye Pain, No Ear Pain, No Dysphasia , No Sinus Congestion, No Post Nasal Drip, No Sore Throat, No Other Pulmonary: No Dyspnea, No Cough, No Pleuritic Chest Pain, No Other Cardiovascular: No: Chest Pain, Palpitations, Orthopnea, Paroxysmal Noc. Dyspnea, Edema, Lt Headedness, Other Objective-Cardiology Exam Last Set of Vital Signs Vital Signs 08/19/18 08:22 Temp 99.1 Pulse 77 Resp 20 B/P (MAP) 130/80 (97) Pulse Ox 96 O2 Delivery Room Air Capillary Refill : Less Than 3 Seconds I&O Intake and Output 08/19/18 00:00 Intake Total 1420 ml Output Total 2050 ml Balance -630 ml Intake Oral 1420 ml Output Urine Total 2050 ml # Voids 1 General: Alert, Oriented X3, Cooperative HEENT: Atraumatic, PERRLA Neck: Supple, No JVD, No Thyromegaly Lungs: Clear to Auscultation, Normal Air Movement Heart: Regular Rate, Normal S1, Normal S2, No Murmurs Abdomen: Normal Bowel Sounds, Soft, No Tenderness, No Hepatosplenomegaly, No Masses Extremities: No Clubbing, No Cyanosis, No Edema, Normal Pulses, No Tenderness/ Swelling Skin: No Rashes, No Breakdown, No Significant Lesion Neuro: Normal Gait, Normal Speech, Strength at 5/5 X4 Ext, Normal Tone, Sensation Intact Psych/Mental Status: Mental Status NL, Mood NL Results Lab Laboratory Tests 08/19/18 05:16 A/P-Cardiology Admission Diagnosis Subacute CVA Carotid stenosis Hypertension Spinal stenosis Assessment/Plan Subacute CVA, weakness and blurred vision, reporting improvement in her weakness , still having blurred vision. Stroke was at the right MCA territory. Has total occlusion of the right carotid artery. History of right carotid endarterectomy October 2016 and then right carotid stenting done in May 2017. Kidney on aspirin and Plavix, start Lipitor. Coronary artery disease, history of multiple interventions in the past. Last cardiac catheterization was done in July 2014. Had 50 percent stenosis in the mid circumflex artery, confirmed with flow wire. Had a patent stent in the LAD, diagonal artery, patent 2 stents in the right coronary artery. Small vessel disease in the distal right coronary artery. Treated conservatively. Stress test was done in July 2018 showing no significant ischemia or infarction, continue to monitor Hypertension, restart home medication monitor blood pressure Hyperlipidemia, history of intolerance to Lipitor due to leg pain, patient is reported that she is willing to try to again, will consider the use of Repatha History of transient episode of asystole after nitroglycerin injection during left heart catheterization, continue to monitor at this time Tobaccoism, patient was educated and instructed in length on smoking cessation. Carotid artery stenosis-status post right carotid endarterectomy in October 2016, and right carotid stenting May [address] Plascencia, currently the right carotid artery appeared to be occluded. Thyroid nodule, status post resection done by Dr. Tarango. Lower extremity cramps and pain, reporting some improvement. Has history of spinal stenosis. BATOOL was normal, still having lower back pain and extremity pain Anxiety. Clinical Quality Measures DVT/VTE Risk/Contraindication: Risk Factor Score Per Nursin RFS Level Per Nursing on Admit: 4+=Very High ABBEY BURNETT MD Aug 19, 2018 08:32
[2018-08-19] MEDS ORDERED: VITAMIN D3 400 UNITS (CHOLECALCIFEROL) TABLET PO SCH (09:00)
[2018-08-19] MEDS ORDERED: NON-FORMULARY MEDICATION 1 EA EA (Hydrochlorothiazide 25 MG) PO SCH (09:00)
[2018-08-19] MEDS ORDERED: lisINopril 40 MG (PRINIVIL) TABLET PO SCH (09:00)
[2018-08-19] MEDS ORDERED: amLODIPine 10 MG (NORVASC) TAB PO SCH (09:00)
[2018-08-19] MEDS ORDERED: NON-FORMULARY MEDICATION 1 EA EA (Amlodipine Besylate 10 MG) PO SCH (09:00)
[2018-08-19] MEDS ORDERED: CLOPIDOGREL 75 MG (PLAVIX) TABLET PO SCH (09:00)
[2018-08-19] MEDS ORDERED: NON-FORMULARY MEDICATION 1 EA EA (Benazepril HCl 40 MG) PO SCH (09:00)
[2018-08-19] MEDS ORDERED: HYDROCHLOROTHIAZIDE 25 MG (HCTZ) TAB PO SCH (09:00)
[2018-08-19] MEDS: GABAPENTIN 600 MG (NEURONTIN) TAB PO SCH ×2 (09:12→12:47)
[2018-08-19] MEDS: ASPIRIN 81 MG CHEW (CHILDREN'S ASA) PO SCH (09:12)
[2018-08-19] MEDS ORDERED: FLU QUADRIvalent (5+ YOA) 2018-2019 (AFLURIA) 0.5 ML IM ONE (09:41)
--- NOTE | 2018-08-19 11:07 | Physical Therapy Daily Note ---
PT Daily Note-Current Subjective Pt sitting up in bed visiting with daughter upon arrival. Pt reports discharging today, Nurse confirms. Pt reports not wanting to walk due to get leg cramps after walk & feeling too fatigued for going home. LICENSED PRACTICAL NURSE CLINIC NURSE gives pt education instead. Transfers Functional [place] Measure 0=Not Assessed/NA 4=Minimal Assistance 1=Total Assistance 5=Supervision or Setup 2=Maximal Assistance 6=Modified [place] 3=Moderate Assistance 7=Complete IndependenceIRFPAI Quality Coding Scale 6 Independent with activity with or without an assistive device 5 Patient requires set up or clean up by helper. Patient completes activity by themselves 4 Supervision or touching assist (CGA). [place] provide cues , steadying assist 3 The helper provides less than half the effort to complete the activity 2 The helper provides more than half the effort to complete the activity 1 Dependent. The helper does all the effort to complete an activity 7 Patient refused to complete or attempt activity 9 The patient did not perform the activity before the current illness or injury 88 Not attempted due to Medical conditions or safety concerns Weight Bearing Right Lower Extremity: Right Full Weight Bearing Left Lower Extremity: Left Full Weight Bearing Treatments LICENSED PRACTICAL NURSE CLINIC NURSE, pt & pt's daughter discuss how pt has progressed and what might be needed upon discharge. Pt wants to go to OP Therapy for traction of compressed discs in back as well as SP for some pointers of ways pt can improve. Pt is resting with daughter & sister present. Pt has all need met. Assessment Current Status: Good Progress Pt tolerates tx well and reports feeling less anxious about discharge. PT Short Term Goals Short Term Goals Time Frame: Aug 21, 2018 Transfers (B,C,W/C) (FIM): 6 Gait (FIM): 6 Distance (FIM): 3=150 ft Gait Level of Assist: 6 Gait Assistive Device: Cane Single Point PT Plan Problem List Problem List: Activity Tolerance, Functional Strength, Safety Treatment/Plan Treatment Plan: Continue Plan of Care Treatment Plan: Education, Functional Activity [place], Functional Strength, Gait , Safety, Therapeutic Exercise Treatment Duration: Aug 21, 2018 Frequency: 4 times per week Estimated Hrs Per Day: .25 hour per day Patient and/or Family Agrees t: Yes Safety Risks/Education Patient Education: Correct Positioning, Safety Issues Teaching Recipient: Patient, Family Teaching Methods: Discussion Response to Teaching: Verbalize Understanding Time/GCodes Time In: 922 Time Out: 945 Total Billed Treatment Time: 23 Total Billed Treatment 1, FA x2 (23m) G Codes Necessary: ROGELIO Brooks LICENSED PRACTICAL NURSE CLINIC NURSE Aug 19, 2018 11:07
[2018-08-19] MEDS ORDERED: FENOFIBRATE 54 MG PO SCH (11:30)
[2018-08-19 12:00] VITALS: BP 144/63
[2018-08-19] MEDS ORDERED: ATOR10TA66 PO (13:13)
[2018-08-19] MEDS ORDERED: CLOP75TA28 PO (13:13)
[2018-08-19] MEDS ORDERED: ATORVASTATIN 10 MG (LIPITOR) TABLET PO SCH ×2 (21:00)
[2018-08-19] MEDS ORDERED: FENOFIBRATE, MICRO 67 MG (LOFIBRA) CAPSULE PO SCH (21:00)
--- NOTE | 2018-08-20 07:30 | Discharge Summary ---
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 Hyperlipidemia. Hypertension. Spinal stenosis. Coronary artery disease. Headache. Anxiety. Carotid artery disease. Reason Hospital Visit Patient states she woke up confused and had a headache. Call Dr. Ramos's office and told by the nurse to go to the emergency room. At the emergency room NIH score was 0. Patient states she had a headache on waking today. Patient also did admit to some chest pain. Patient had a CAT scan of the head which showed a stroke. Patient also has been complaining of leg pain. Patient had a stent in the right carotid. Discharge Summary Consultations Cardiology Discharge Physical Examination Allergies: Coded Allergies: No Known Drug Allergies (Unverified , 04/20/18) Vitals & I&Os Vital Signs Date Time Temp Pulse Resp B/P (MAP) Pulse Ox O2 Delivery O2 Flow Rate FiO2 08/19/18 13:56 74 08/19/18 12:00 98.5 20 144/63 (90) 95 Room Air Hospital Course Patient in hospital did good. Patient had no neurological deficits. Patient discharged home. Patient to be seen in the office in one week Patient to be seen by Dr. Ramos 2 weeks cardiology Labs (last 24 hrs) Laboratory Tests 08/17/18 14:59: White Blood Count 6.5, Red Blood Count 4.86, Hemoglobin 14.6, Hematocrit 44, Mean Corpuscular Volume 90, Mean Corpuscular Hemoglobin 30, Mean Corpuscular Hemoglobin Concent 34, Red Cell Distribution Width 12.6, Platelet Count 297, Mean Platelet Volume 9.5, Neutrophils (%) (Auto) 60, Lymphocytes (%) (Auto) 25, Monocytes (%) (Auto) 10, Eosinophils (%) (Auto) 4, Basophils (%) (Auto) 2, Neutrophils # (Auto) 3.9, Lymphocytes # (Auto) 1.6, Monocytes # (Auto) 0.6, Eosinophils # (Auto) 0.3, Basophils # (Auto) 0.1, Prothrombin Time 12.6, INR Comment 0.9, Activated Partial Thromboplast Time 28, Sodium Level 140, Potassium Level 3.4L, Chloride Level 100, Carbon Dioxide Level 28, Anion Gap 12 , Blood Urea Nitrogen 6L, Creatinine 0.73, Estimat Glomerular Filtration Rate > 60, BUN/Creatinine Ratio 8, Glucose Level 101, Calcium Level 9.6, Corrected Calcium 9.2, Magnesium Level 2.1, Total Bilirubin 0.3, Aspartate Amino Transf ( AST/SGOT) 21, Alanine Aminotransferase (ALT/SGPT) 12, Alkaline Phosphatase 80, Total Protein 7.6, Albumin 4.5, TSH [place] Testing 0.37, Serum Alcohol < 10 08/17/18 15:04: Urine Color YELLOW, Urine Clarity CLEAR, Urine pH 8, Urine Specific [place] 1.010L, Urine Protein NEGATIVE, Urine Glucose (UA) NEGATIVE, Urine Ketones NEGATIVE, Urine Nitrite NEGATIVE, Urine Bilirubin NEGATIVE, Urine Urobilinogen NORMAL, Urine Leukocyte Esterase NEGATIVE, Urine RBC (Auto) NEGATIVE, Urine RBC NONE, Urine WBC RARE, Urine Squamous Epithelial Cells RARE, Urine Crystals NONE , Urine Bacteria NEGATIVE, Urine Casts NONE, Urine Mucus NEGATIVE, Urine Culture Indicated NO, Urine Opiates Screen NEGATIVE, Urine Oxycodone Screen NEGATIVE, Urine Methadone Screen NEGATIVE, Urine Propoxyphene Screen NEGATIVE, Urine Barbiturates Screen NEGATIVE, Ur Tricyclic Antidepressants Screen NEGATIVE , Urine Phencyclidine Screen NEGATIVE, Urine Amphetamines Screen NEGATIVE, Urine Methamphetamines Screen NEGATIVE, Urine Benzodiazepines Screen NEGATIVE, Urine Cocaine Screen NEGATIVE, Urine Cannabinoids Screen NEGATIVE 08/18/18 05:45: White Blood Count 5.7, Red Blood Count 4.79, Hemoglobin 14.7, Hematocrit 42, Mean Corpuscular Volume 89, Mean Corpuscular Hemoglobin 31, Mean Corpuscular Hemoglobin Concent 35, Red Cell Distribution Width 12.6, Platelet Count 278, Mean Platelet Volume 9.2, Neutrophils (%) (Auto) 57, Lymphocytes (%) (Auto) 26, Monocytes (%) (Auto) 10, Eosinophils (%) (Auto) 5, Basophils (%) (Auto) 2, Neutrophils # (Auto) 3.2, Lymphocytes # (Auto) 1.5, Monocytes # (Auto) 0.6, Eosinophils # (Auto) 0.3, Basophils # (Auto) 0.1, Sodium Level 138, Potassium Level 3.9, Chloride Level 103, Carbon Dioxide Level 23, Anion Gap 12, Blood Urea Nitrogen 7, Creatinine 0.72, Estimat Glomerular Filtration Rate > 60, BUN/ Creatinine Ratio 10, Glucose Level 103, Calcium Level 9.3, Corrected Calcium 9.1 , Total Bilirubin 0.4, Aspartate Amino Transf (AST/SGOT) 20, Alanine Aminotransferase (ALT/SGPT) 13, Alkaline Phosphatase 74, Total Protein 7.2, Albumin 4.3, Troponin I < 0.30, Triglycerides Level 138, Cholesterol Level 235H , LDL Cholesterol Direct 182H, VLDL Cholesterol 28, HDL Cholesterol 44, Thyroid Stimulating Hormone (TSH) 0.82 08/19/18 05:16: White Blood Count 6.2, Red Blood Count 4.56, Hemoglobin 13.9, Hematocrit 41, Mean Corpuscular Volume 90, Mean Corpuscular Hemoglobin 31, Mean Corpuscular Hemoglobin Concent 34, Red Cell Distribution Width 12.4, Platelet Count 313, Mean Platelet Volume 9.4, Neutrophils (%) (Auto) 57, Lymphocytes (%) (Auto) 28, Monocytes (%) (Auto) 10, Eosinophils (%) (Auto) 3, Basophils (%) (Auto) 2, Neutrophils # (Auto) 3.5, Lymphocytes # (Auto) 1.7, Monocytes # (Auto) 0.6, Eosinophils # (Auto) 0.2, Basophils # (Auto) 0.1, Sodium Level 136, Potassium Level 3.9, Chloride Level 101, Carbon Dioxide Level 26, Anion Gap 9, Blood Urea Nitrogen 10, Creatinine 0.74, Estimat Glomerular Filtration Rate > 60, BUN/ Creatinine Ratio 14, Glucose Level 96, Calcium Level 9.4, Corrected Calcium 9.6 , Total Bilirubin 0.3, Aspartate Amino Transf (AST/SGOT) 17, Alanine Aminotransferase (ALT/SGPT) 9, Alkaline Phosphatase 69, Total Protein 6.3L, Albumin 3.8 Laboratory Tests 08/17/18 14:59 08/18/18 05:45 08/19/18 05:16 Pending Labs Laboratory Tests 08/17/18 14:59: White Blood Count 6.5, Red Blood Count 4.86, Hemoglobin 14.6, Hematocrit 44, Mean Corpuscular Volume 90, Mean Corpuscular Hemoglobin 30, Mean Corpuscular Hemoglobin Concent 34, Red Cell Distribution Width 12.6, Platelet Count 297, Mean Platelet Volume 9.5, Neutrophils (%) (Auto) 60, Lymphocytes (%) (Auto) 25, Monocytes (%) (Auto) 10, Eosinophils (%) (Auto) 4, Basophils (%) (Auto) 2, Neutrophils # (Auto) 3.9, Lymphocytes # (Auto) 1.6, Monocytes # (Auto) 0.6, Eosinophils # (Auto) 0.3, Basophils # (Auto) 0.1, Prothrombin Time 12.6, INR Comment 0.9, Activated Partial Thromboplast Time 28, Sodium Level 140, Potassium Level 3.4, Chloride Level 100, Carbon Dioxide Level 28, Anion Gap 12, Blood Urea Nitrogen 6, Creatinine 0.73, Estimat Glomerular Filtration Rate > 60 , BUN/Creatinine Ratio 8, Glucose Level 101, Calcium Level 9.6, Corrected Calcium 9.2, Magnesium Level 2.1, Total Bilirubin 0.3, Aspartate Amino Transf ( AST/SGOT) 21, Alanine Aminotransferase (ALT/SGPT) 12, Alkaline Phosphatase 80, Total Protein 7.6, Albumin 4.5, TSH [place] Testing 0.37, Serum Alcohol < 10 08/17/18 15:04: Urine Color YELLOW, Urine Clarity CLEAR, Urine pH 8, Urine Specific [place] 1.010, Urine Protein NEGATIVE, Urine Glucose (UA) NEGATIVE, Urine Ketones NEGATIVE, Urine Nitrite NEGATIVE, Urine Bilirubin NEGATIVE, Urine Urobilinogen NORMAL, Urine Leukocyte Esterase NEGATIVE, Urine RBC (Auto) NEGATIVE, Urine RBC NONE, Urine WBC RARE, Urine Squamous Epithelial Cells RARE, Urine Crystals NONE , Urine Bacteria NEGATIVE, Urine Casts NONE, Urine Mucus NEGATIVE, Urine Culture Indicated NO, Urine Opiates Screen NEGATIVE, Urine Oxycodone Screen NEGATIVE, Urine Methadone Screen NEGATIVE, Urine Propoxyphene Screen NEGATIVE, Urine Barbiturates Screen NEGATIVE, Ur Tricyclic Antidepressants Screen NEGATIVE , Urine Phencyclidine Screen NEGATIVE, Urine Amphetamines Screen NEGATIVE, Urine Methamphetamines Screen NEGATIVE, Urine Benzodiazepines Screen NEGATIVE, Urine Cocaine Screen NEGATIVE, Urine Cannabinoids Screen NEGATIVE 08/18/18 05:45: White Blood Count 5.7, Red Blood Count 4.79, Hemoglobin 14.7, Hematocrit 42, Mean Corpuscular Volume 89, Mean Corpuscular Hemoglobin 31, Mean Corpuscular Hemoglobin Concent 35, Red Cell Distribution Width 12.6, Platelet Count 278, Mean Platelet Volume 9.2, Neutrophils (%) (Auto) 57, Lymphocytes (%) (Auto) 26, Monocytes (%) (Auto) 10, Eosinophils (%) (Auto) 5, Basophils (%) (Auto) 2, Neutrophils # (Auto) 3.2, Lymphocytes # (Auto) 1.5, Monocytes # (Auto) 0.6, Eosinophils # (Auto) 0.3, Basophils # (Auto) 0.1, Sodium Level 138, Potassium Level 3.9, Chloride Level 103, Carbon Dioxide Level 23, Anion Gap 12, Blood Urea Nitrogen 7, Creatinine 0.72, Estimat Glomerular Filtration Rate > 60, BUN/ Creatinine Ratio 10, Glucose Level 103, Calcium Level 9.3, Corrected Calcium 9.1 , Total Bilirubin 0.4, Aspartate Amino Transf (AST/SGOT) 20, Alanine Aminotransferase (ALT/SGPT) 13, Alkaline Phosphatase 74, Total Protein 7.2, Albumin 4.3, Troponin I < 0.30, Triglycerides Level 138, Cholesterol Level 235, LDL Cholesterol Direct 182, VLDL Cholesterol 28, HDL Cholesterol 44, Thyroid Stimulating Hormone (TSH) 0.82 08/19/18 05:16: White Blood Count 6.2, Red Blood Count 4.56, Hemoglobin 13.9, Hematocrit 41, Mean Corpuscular Volume 90, Mean Corpuscular Hemoglobin 31, Mean Corpuscular Hemoglobin Concent 34, Red Cell Distribution Width 12.4, Platelet Count 313, Mean Platelet Volume 9.4, Neutrophils (%) (Auto) 57, Lymphocytes (%) (Auto) 28, Monocytes (%) (Auto) 10, Eosinophils (%) (Auto) 3, Basophils (%) (Auto) 2, Neutrophils # (Auto) 3.5, Lymphocytes # (Auto) 1.7, Monocytes # (Auto) 0.6, Eosinophils # (Auto) 0.2, Basophils # (Auto) 0.1, Sodium Level 136, Potassium Level 3.9, Chloride Level 101, Carbon Dioxide Level 26, Anion Gap 9, Blood Urea Nitrogen 10, Creatinine 0.74, Estimat Glomerular Filtration Rate > 60, BUN/ Creatinine Ratio 14, Glucose Level 96, Calcium Level 9.4, Corrected Calcium 9.6 , Total Bilirubin 0.3, Aspartate Amino Transf (AST/SGOT) 17, Alanine Aminotransferase (ALT/SGPT) 9, Alkaline Phosphatase 69, Total Protein 6.3, Albumin 3.8 Discharge Home Medications: Active Scripts Active Atorvastatin Calcium 10 Mg Tablet 10 Mg PO HS 30 Days Clopidogrel (Clopidogrel Bisulfate) 75 Mg Tablet 75 Mg PO DAILY 30 Days Reported Dulcolax (Bisacodyl) 5 Mg Tablet.dr 5-10 Mg PO Q48H Viactiv Soft Chew Tablet (Ca Carbonate/Vitamin D3/Vit K) 1 Each Tab.chew 2 Tab.chew PO DAILY Levothyroxine Sodium 112 Mcg Tablet 112 Mcg PO DAILY Tramadol HCl 50 Mg Tablet 50 Mg PO TID PRN Gabapentin 600 Mg Tablet 600 Mg PO 0800,1200 Amlodipine Besylate 10 Mg Tablet 10 Mg PO DAILY Ropinirole HCl 0.5 Mg Tablet 0.5 Mg PO HS Alprazolam 0.5 Mg Tablet 0.25-0.5 Mg PO TID PRN Cyclobenzaprine HCl 5 Mg Tablet 5 Mg PO Q8H PRN Gabapentin 600 Mg Tablet 900 Mg PO HS TAKES 1 & 1/2 (600MG) TABLET Vitamin D (Cholecalciferol (Vitamin D3)) 400 Unit Tablet 400 Unit PO DAILY Fenofibrate 54 Mg Tablet 54 Mg PO MOWEFR Hydrochlorothiazide 25 Mg Tablet 25 Mg PO DAILY Aspirin 81 Mg Tab.chew 81 Mg PO DAILY Benazepril HCl 40 Mg Tab 40 Mg PO DAILY Carvedilol 12.5 Mg Tablet 12.5 Mg PO BID Instructions to patient/family Please see electronic discharge instructions given to patient. Clinical Quality Measures DVT/VTE Risk/Contraindication: Risk Factor Score Per Nursin RFS Level Per Nursing on Admit: 4+=Very High DAKOTA SOLIZ DO Aug 20, 2018 07:30
== END 2018-08-19 13:15 | disposition home or self-care (01) ==
LOC: EDUNIT# 12:01 → ER 12:02 → 4TH 18:30 → UNDOADMIN 18:30 → 4TH 19:34 → UNDODISIN 08-19 13:36
PROVIDERS: ADMIT Family Medicine; ATTEND Family Medicine
DX: I63.511 Cerebral infarction due to unspecified occlusion or stenosis of right middle cerebral artery (principal); I65.23 Occlusion and stenosis of bilateral carotid arteries; T82.858A Stenosis of other vascular prosthetic devices, implants and grafts, initial encounter; R29.700 NIHSS score 0; R41.0 Disorientation, unspecified; R51 Headache; H53.8 Other visual disturbances; F17.210 Nicotine dependence, cigarettes, uncomplicated; E89.0 Postprocedural hypothyroidism; I25.10 Atherosclerotic heart disease of native coronary artery without angina pectoris; R01.1 Cardiac murmur, unspecified; E78.00 Pure hypercholesterolemia, unspecified; I10 Essential (primary) hypertension; I73.9 Peripheral vascular disease, unspecified; G62.9 Polyneuropathy, unspecified; M48.00 Spinal stenosis, site unspecified; M19.91 Primary osteoarthritis, unspecified site; F41.9 Anxiety disorder, unspecified; M79.604 Pain in right leg; M79.605 Pain in left leg; T46.6X5A Adverse effect of antihyperlipidemic and antiarteriosclerotic drugs, initial encounter; I25.2 Old myocardial infarction; Z95.5 Presence of coronary angioplasty implant and graft; Z85.828 Personal history of other malignant neoplasm of skin; T23.071D Burn of unspecified degree of right wrist, subsequent encounter; V89.2XXD Person injured in unspecified motor-vehicle accident, traffic, subsequent encounter
CPT/HCPCS: 36415; 70450; 70496; 70498; 70553; 71045; 80053; 80061; 80306; 80320; 81000; 83735; 84443; 84484; 85025; 85610; 85730; 90686; 93005; 93041; 96374; G0378

== ENCOUNTER 2018-09-01 19:36 | Emergency (ER) | payer MEDICARE ==
[~2018-09-01] VITALS: Ht 177.8 cm; Wt 68.5 kg
[~2018-09-01 19:36] MED LIST changes: +ALPR0.5T7 PO; +AMLO10TA6 PO; +ATOR10TA66 PO; +BISA-65 PO; +CA C1TAB80 PO; +GABA600T2 PO; +LEVO112T55 PO; +NAPR-915 PO; +ROPI0.5T2 PO
--- OUTSIDE RECORDS SUMMARY | 2018-09-01 19:53 | XMS REPORT | Continuity of Care Document ---
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 23:59:59 CLS Outpatient HARSH ZHAO [facility] RAD HTN,HX OF THYROID NODULE,HLP [id number] 04/01/2016 07:42:00 04/01/2016 23:59:59 CLS Outpatient HARSH ZHAO [facility] CARD HTN,HLP, [id number] 03/28/2016 12:29:00 03/28/2016 23:59:59 CLS Outpatient HARSH ZHAO [facility] CARD HTN,HLP, CORONARY STENOSIS [id number] 03/19/2016 08:44:00 03/19/2016 23:59:59 CLS Outpatient ABBEY BURNETT MD [facility] RAD CAROTID STENOSIS BILATERAL [id number] 03/09/2015 08:02:00 03/09/2015 23:59:59 CLS Outpatient DAKOTA SOLIZ DO [facility] RAD SCREENING [id number] 07/27/2014 09:00:00 07/27/2014 18:00:00 DIS Outpatient ABBEY BURNETT MD [facility] CATH ABNORMAL STRESS, CAD, HTN,HLP,TOBACCOISM [id number] 07/25/2014 07:42:00 07/25/2014 23:59:59 CLS Outpatient HARSH ZHAO [facility] CARD CAD,HTN,HLP, TOBACCO USE [id number] 07/21/2014 08:00:00 07/21/2014 08:13:00 DIS Emergency CAR SALCEDO MD [facility] ER SUTURE REMOVAL [id number] 07/11/2014 11:17:00 07/11/2014 13:03:00 DIS Emergency YVETTE GROVE [facility] ER LEFT HAND LAC [id number] 07/05/2014 10:44:00 07/05/2014 23:59:59 CLS Outpatient HARSH ZHAO [facility] CARD CAD,HTN,HLP, TOBACCO USE [id number] 10/13/2013 07:24:00 10/13/2013 23:59:59 CLS Outpatient DAKOTA SOLIZ DO [facility] RAD ABN MAMMO [id number] 09/22/2013 09:00:00 09/22/2013 23:59:59 CLS Outpatient DAKOTA SOLIZ DO [facility] RAD SCREENING [id number] 05/15/2013 15:37:00 05/15/2013 17:58:00 DIS Emergency ODILON CRISTINA LOPEZ [facility] ER HIGH BLOOD PRESSURE [id number] 04/07/2013 08:09:00 04/08/2013 09:30:00 DIS Outpatient ABBEY BURNETT MD [facility] CATH ABN STRESS,CAD,HTN,HLP, CHEST PAIN [id number] 03/29/2013 07:50:00 03/29/2013 23:59:59 CLS Outpatient ABBEY BURNETT MD [facility] RAD CAD,HTN,HLP [id number] 01/11/2019 09:00:00 PEN Preadmit SASKIA JOYNER [facility] RAD I65.23 BILATERAL CAROTID ARTERY ATHEROSCLEROSIS [id number] 07/15/2018 10:35:00 Document Registration [id number] 05/27/2012 07:18:00 Document Registration [id number] 04/01/2012 07:40:00 Document Registration [id number] 03/17/2012 11:47:00 Document Registration [id number] 05/13/2011 08:37:00 Document Registration [email or web address] 03/09/2015 08:02:59 ACT Document Registration
--- NOTE | 2018-09-01 20:12 | ED Cough/URI ---
General Stated Complaint: COUGH Source: patient Exam Limitations: no limitations History of Present Illness Date Seen by Provider: Sep 01, 2018 Time Seen by Provider: 19:55 Initial Comments Here with report of cough. Apparently she was getting a sore throat today and tried to gargle and then choked on that. She states that the gargle went down the wrong tube and that she has been coughing since. Denies fever or chills. Overall feeling okay. Denies shortness of breath. Timing/Duration: just prior to arrival Severity/Quality: moderate, dry cough Prior Episodes/Possible Cause: occasional episodes Associated Symptoms: cough, nasal congestion, sore throat Allergies and Home Medications Allergies Coded Allergies: No Known Drug Allergies (Unverified , 04/20/18) Home Medications Alprazolam 0.5 Mg Tablet, 0.25-0.5 MG PO TID PRN for ANXIETY, (Reported) Amlodipine Besylate 10 Mg Tablet, 10 MG PO DAILY, (Reported) Aspirin 81 Mg Tab.chew, 81 MG PO DAILY, (Reported) Atorvastatin Calcium 10 Mg Tablet, 10 MG PO HS Prescribed by: PADMINI REY on 08/19/18 1313 Benazepril HCl 40 Mg Tab, 40 MG PO DAILY, (Reported) Bisacodyl 5 Mg Tablet.dr, 5-10 MG PO Q48H, (Reported) Ca Carbonate/Vitamin D3/Vit K 1 Each Tab.chew, 2 TAB.CHEW PO DAILY, (Reported) Carvedilol 12.5 Mg Tablet, 12.5 MG PO BID, (Reported) Cholecalciferol (Vitamin D3) 400 Unit Tablet, 400 UNIT PO DAILY, (Reported) Clopidogrel Bisulfate 75 Mg Tablet, 75 MG PO DAILY Prescribed by: PADMINI REY on 08/19/18 1313 Cyclobenzaprine HCl 5 Mg Tablet, 5 MG PO Q8H PRN for MUSCLE SPASMS, (Reported) Fenofibrate 54 Mg Tablet, 54 MG PO MoWeFr, (Reported) Gabapentin 600 Mg Tablet, 900 MG PO HS, (Reported) TAKES 1 & 1/2 (600MG) TABLET Gabapentin 600 Mg Tablet, 600 MG PO 0800,1200, (Reported) Hydrochlorothiazide 25 Mg Tablet, 25 MG PO DAILY, (Reported) Levothyroxine Sodium 112 Mcg Tablet, 112 MCG PO DAILY, (Reported) Ropinirole HCl 0.5 Mg Tablet, 0.5 MG PO HS, (Reported) Tramadol HCl 50 Mg Tablet, 50 MG PO TID PRN for PAIN-MODERATE, (Reported) Patient Home Medication List Home Medication List Reviewed: Yes Review of Systems Review of Systems Constitutional: see HPI; No chills, No fever EENTM: see HPI Respiratory: see HPI; No wheezing Cardiovascular: no symptoms reported Gastrointestinal: no symptoms reported Musculoskeletal: no symptoms reported Skin: no symptoms reported Past Myfhjwg-Qxbbpk-Imjpmy Hx Past Med/Social Hx: Reviewed Nursing Past Med/Soc Hx Patient Social History Alcohol Use: Denies Use Recreational Drug Use: No Smoking Status: Current Everyday Smoker Type Used: Cigarettes 2nd Hand Smoke Exposure: Yes Recent Foreign Travel: No Contact w/Someone Who Travel: No Recent Hopitalizations: No Immunizations Up To Date Tetanus Booster (TDap): Less than 5yrs Date of Pneumonia Vaccine: Sep 11, 2015 Date of Influenza Vaccine: Sep 15, 2017 Seasonal Allergies Seasonal Allergies: No Past Medical History Surgeries: Yes Appendectomy, Cardiac, Coronary Stent, Orthopedic, Thyroidectomy, Tubal Ligation , Vascular Surgery Respiratory: No (BUT IS A CURRENT SMOKER) Cardiac: Yes (STENTS X4, ANGIOPLASTY X 1; RIGHT CAROTID ENDARTERECTOMY AND STENT) Coronary Artery Disease, Heart Attack, Heart Murmur, High Cholesterol, Hypertension, Peripheral Vascular, Valvular Heart Disease Neurological: Yes Neuropathy Reproductive Disorders: No AT RISK PARAPROFESSIONAL History: Menopausal Sexually Transmitted Disease: No HIV/AIDS: No Genitourinary: No Gastrointestinal: No Musculoskeletal: Yes Degenerate Disk Disease, Arthritis, Chronic Back Pain Endocrine: Yes (THYROID NODULES--S/P THYROIDECTOMY) HEENT: No Loss of Vision: Bilateral Hearing Impairment: Denies Cancer: Yes (SKIN X 36) Skin Did You Recieve Any Treatments: Yes What Type of Treatment Did You: Surgical Intervention Psychosocial: Yes Anxiety Integumentary: Yes (SKIN CANCER) Blood Disorders: No Adverse Reaction/Blood Tranf: No (N/A) Family Medical History Reviewed Nursing Family Hx Cardiovascular disease 19 MOTHER, G8 BROTHER, G8 BROTHER, G8 BROTHER, Neoplasm 19 FATHER, Respiratory disorder G8 SISTER Physical Exam Vital Signs - First Documented 09/01/18 20:16 Pulse Ox 97 O2 Delivery Room Air Capillary Refill : Height: 5'10.00" Weight: 149lbs. 0.0oz. 67.705323yp; 21.4 BMI Method:Stated General Appearance: WD/WN, no apparent distress HEENT: PERRL/EOMI, pharynx normal Neck: full range of motion, supple Respiratory: lungs clear, normal breath sounds, other (persistent dry cough noted and worsened with deep breathing) Cardiovascular: regular rate, rhythm, no murmur Gastrointestinal: non tender, soft Neurologic/Psychiatric: alert, oriented x 3 Skin: normal color, warm/dry Procedures/Interventions Date of ETT Placement: April 22, 2018 Progress/Results/Core Measures Suspected Sepsis SIRS Temperature: Pulse: Respiratory Rate: Blood Pressure / Mean: Results/Orders My Orders Orders - CAR SALCEDO MD Albuterol/Ipra Inhalation Soln (Duoneb I (09/01/18 20:15) Chest Pa/Lat (2 View) (09/01/18 20:01) Svn Small Volume Nebulizer (09/01/18 20:01) Decadron 10 Mg Im (09/01/18 20:38) Tramadol Tablet (Ultram Tablet) (09/01/18 20:38) Medications Given in ED Current Medications Medications Dose Ordered Sig/Sho Route Start Time Stop Time Status Last Admin Dose Admin Albuterol/ Ipratropium 3 ml ONCE ONCE INH 09/01/18 20:15 09/01/18 20:16 DC 09/01/18 20:16 3 ML Vital Signs/I&O 09/01/18 20:16 Pulse Ox 97 O2 Delivery Room Air Capillary Refill : Progress Note : Progress Note Seen and evaluated. Duo neb and chest x-ray ordered. Monitor patient. A little better after the treatment. We will give Decadron 10 mg IM and patient is starting to have a headache so we will holter technician her nightly dose of tramadol. Her sisters can come get her. 2039: Patient is able to swallow without difficulty but complains of the tickle in her throat. I do believe the Decadron will help us in time. Likely upper respiratory infection and this was discussed with the patient who agrees. Her blood pressure is increasing and she needs her night meds. She will take those as soon as she gets home. Discharged home with return precautions. Patient verbalize understanding instructions and agreement with plan. Diagnostic Imaging Diagonstic Imaging: Xray Plain Films/CT/US/NM/MRI: chest [facility] [employer] [facility] [place], [place] NAME: MADINA WIGGINS [facility] REC#: [id number] PT STATUS: REG ER : 1945 PHYSICIAN: CAR SALCEDO MD ADMIT DATE: 09/01/18/ER Draft Date of Exam:09/01/18 CHEST PA/LAT (2 VIEW) EXAM: PA and lateral chest. COMPARISON to prior study from 08/17/2018 INDICATION: Cough. FINDINGS: The lungs demonstrate no focal infiltrate or consolidation. There is no effusion. There is no pneumothorax. The lungs appear hyperinflated as evidenced by the flattened diaphragms on lateral view. Heart size and mediastinal contours appear appropriate and pulmonary vascularity appears normal. No acute or suspicious osseous abnormality demonstrated. IMPRESSION: 1. No radiographic evidence of an acute cardiopulmonary process. Flattened diaphragms suggests underlying air trapping. Correlate for any known history of COPD. Dictated on workstation # [id number] Dict: 09/01/182016 Trans: 09/01/182021 [facility] [id number] Interpreted by: JOSE JONES MD Electronically signed by: Departure Impression Primary Impression: Upper respiratory infection, viral Additional Impression: Cough Disposition: 01 HOME, SELF-CARE Condition: Improved Departure-Patient Inst. Decision time for Depature: 20:41 Referrals: DAKOTA SOLIZ DO (PCP/Family) Primary Care Physician RODRIGUEZ LOCK MD Patient Instructions: Viral Upper Respiratory Infection, Adult (DC) Add. Discharge Instructions: You may use dehk-loa-xlcgtch cough drops to help with your cough. Continue other home medications as previously prescribed. Follow-up with your DrDino in one to 2 days for recheck. Return for worse pain, fever, vomiting, weakness, breathing problems or other concerns as needed. CAR SALCEDO MD Sep 01, 2018 20:12
[2018-09-01] MEDS ORDERED: RT-ALBUTEROL/IPRATROPIUM 3 ML (DUONEB) VIAL INH ONE (20:15)
--- NOTE | 2018-09-01 20:22 | Diagnostic Imaging Report ---
EXAM: PA and lateral chest. COMPARISON to prior study from 08/17/2018 INDICATION: Cough. FINDINGS: The lungs demonstrate no focal infiltrate or consolidation. There is no effusion. There is no pneumothorax. The lungs appear hyperinflated as evidenced by the flattened diaphragms on lateral view. Heart size and mediastinal contours appear appropriate and pulmonary vascularity appears normal. No acute or suspicious osseous abnormality demonstrated. IMPRESSION: 1. No radiographic evidence of an acute cardiopulmonary process. Flattened diaphragms suggests underlying air trapping. Correlate for any known history of COPD. Dictated by: Dictated on workstation # [id number]
[2018-09-01] MEDS ORDERED: DEXAMETHASONE PF 10 MG/ML (DECADRON) VIAL IM STA (20:38)
[2018-09-01 21:16] VITALS: BP 183/96
== END 2018-09-01 21:16 | disposition home or self-care (01) ==
LOC: EDUNIT# 19:36 → ER 19:37
DX: J06.9 Acute upper respiratory infection, unspecified (principal); I25.10 Atherosclerotic heart disease of native coronary artery without angina pectoris; I73.9 Peripheral vascular disease, unspecified; I10 Essential (primary) hypertension; E78.00 Pure hypercholesterolemia, unspecified; I25.2 Old myocardial infarction; F41.9 Anxiety disorder, unspecified; F17.210 Nicotine dependence, cigarettes, uncomplicated; Z90.89 Acquired absence of other organs; Z82.49 Family history of ischemic heart disease and other diseases of the circulatory system; Z85.828 Personal history of other malignant neoplasm of skin; Z95.5 Presence of coronary angioplasty implant and graft; Z98.51 Tubal ligation status; Z79.82 Long term (current) use of aspirin; Z79.02 Long term (current) use of antithrombotics/antiplatelets
CPT/HCPCS: 71046; 94640; 94664

== ENCOUNTER → 2018-09-16 | Outpatient (CLI) | payer MEDICARE, OTHER ==
[~2018-09-16] MED LIST changes: +BARIUM SUSPENSION 105% (LIQUID POLIBAR PLUS) 240 ML/DOSE PO ONE; +BARIUM SUSPENSION 60% (LIQUID EZ PAQUE) 240 ML DOSE PO ONE
--- NOTE | 2018-09-16 13:01 | Diagnostic Imaging Report ---
INDICATION: Dysphagia. Patient has history of thyroid surgery earlier in the year. TECHNIQUE: Patient ingested effervescent crystals as well as thin and thick barium and imaging of the esophagus was performed. A total of 1 minute and 41 seconds of fluoroscopy was utilized. FINDINGS: The esophagus has a fairly smooth contour. No definite mass or stricture is identified. There are occasional tertiary contractions present. No significant hiatal hernia or gastroesophageal reflux was demonstrated. IMPRESSION: Generalized esophageal dysmotility. No mass or stricture is identified. Dictated by: Dictated on workstation # [id number]
== END ==
LOC: RAD 09:00
PROVIDERS: ATTEND Internal Medicine
DX: K22.4 Dyskinesia of esophagus (principal); R13.14 Dysphagia, pharyngoesophageal phase; Z98.890 Other specified postprocedural states
CPT/HCPCS: 74220

== ENCOUNTER 2021-12-03 05:38 | Outpatient (CLI) | payer MEDICARE ==
[~2021-12-03] VITALS: Ht 175.3 cm; Wt 73.6 kg
[~2021-12-03 05:38] MED LIST changes: +AMLO-250 PO; +AMLO-251 PO; -AMLO10TA6 PO; -AMLO5TAB7 PO; -BARIUM SUSPENSION 105% (LIQUID POLIBAR PLUS) 240 ML/DOSE PO ONE; -BARIUM SUSPENSION 60% (LIQUID EZ PAQUE) 240 ML DOSE PO ONE; -BENA40TA5 PO; +BENA40TA84 PO; -CA C1TAB80 PO; -FOLI0.4T2 PO; +FOLI0.4T6 PO; -GABA600T2 PO; +GABA800T10 PO; -GABA800T2 PO; +GBPN600T PO; -HYDR-3812 PO; -ROPI0.5T2 PO; +ROPI0.5T4 PO; +TRM50T PO; +VIACTIV SOFT C1 EAC1 PO
[2021-12-05] MEDS ORDERED: BUSP15TA60 PO (16:06)
[2021-12-05] MEDS ORDERED: DILT120T3 PO (16:06)
[2021-12-05] MEDS ORDERED: CARV25TA PO (16:06)
[2021-12-05] MEDS ORDERED: ATOR40TA70 PO (16:06)
[2021-12-10] MEDS ORDERED: ACHD5005 PO (08:39)
== END 2021-12-05 16:12 | disposition home or self-care (01) ==
LOC: PREOP 05:38
PROVIDERS: ATTEND Obstetrics & Gynecology
DX: Z01.818 Encounter for other preprocedural examination (principal)

== ENCOUNTER 2021-12-10 06:57 | Day surgery (SDC) | payer MEDICARE ==
[~2021-12-10] VITALS: Ht 175 cm; Wt 73.6 kg
[2021-12-10] VITALS (9 sets, daily range): BP systolic 152–196; BP diastolic 51–82
[~2021-12-10 06:57] MED LIST changes: +BUSP15TA60 PO; +CARV25TA PO; +DILT120T3 PO
[2021-12-10] MEDS ORDERED: LACTATED RINGERS 1,000 ML IV PRN (07:15)
[2021-12-10] MEDS ORDERED: BUPIVACAINE 0.25% 30 ML (SENSORCAINE) VIAL ONE (07:17)
[2021-12-10] MEDS ORDERED: LIDOCAINE PF 2% 5 ML (XYLOCAINE) VIAL ONE (07:40)
[2021-12-10] MEDS ORDERED: proPOfol 200 MG/20 ML (DIPRIVAN) VIAL IV ONE (07:40)
[2021-12-10] MEDS ORDERED: ONDANSETRON 4 MG/2 ML (SDV) Z0FRAN ONE (07:40)
[2021-12-10] MEDS ORDERED: fentaNYL INJ 100 MCG/2 ML AMP ONE (07:40)
[2021-12-10 07:46] LABS: BASOPHILS # (AUTO) 0.1 10^3/uL (0.0-0.1); BASOPHILS % (AUTO) 2 % (0-10); EOSINOPHILS # (AUTO) 0.2 10^3/uL (0.0-0.3); EOSINOPHILS % (AUTO) 5 % (0-10); HEMATOCRIT 42 % (35-52); HEMOGLOBIN 13.7 g/dL (11.5-16.0); LYMPHOCYTES # (AUTO) 1.4 10^3/uL (1.0-4.0); LYMPHOCYTES % (AUTO) 31 % (12-44); MEAN CORPUSCULAR HEMOGLOBIN 31 pg (25-34); MEAN CORPUSCULAR HGB CONC 33 g/dL (32-36); MEAN CORPUSCULAR VOLUME 96 fL (80-99); MEAN PLATELET VOLUME 9.4 fL (9.0-12.2); MONOCYTES # (AUTO) 0.5 10^3/uL (0.0-1.0); MONOCYTES % (AUTO) 10 % (0-12); NEUTROPHILS # (AUTO) 2.3 10^3/uL (1.8-7.8); NEUTROPHILS % (AUTO) 51 % (42-75); PLATELET COUNT 247 10^3/uL (130-400); WHITE BLOOD COUNT 4.5 10^3/uL (4.3-11.0)
--- NOTE | 2021-12-10 08:36 | Progress Note-Pre Operative ---
Pre-Operative Progress Note H&P Reviewed The H&P was reviewed, patient examined and no changes noted. Date Seen by Provider: Dec 10, 2021 Time Seen by Provider: 08:35 Date H&P Reviewed: Dec 10, 2021 Time H&P Reviewed: 08:30 Pre-Operative Diagnosis: PMB, Thickened endometrium THIERRY CEE DO Dec 10, 2021 08:36
[2021-12-10] MEDS ORDERED: ACHD5005 PO (08:39)
--- NOTE | 2021-12-10 08:39 | Discharge Inst-Women's Service ---
Discharge Inst-Women's Serv Depart Medication/Instructions New, Converted or Re-Newed RX: Transmitted to Pharmacy Problems Reviewed?: Yes Consults/Follow Up Additional Follow Up: Yes Orders/Referrals Dr. Cee in 2 weeks Activity Activity: Activity as Tolerated Driving Instructions: No Driving for 2 Weeks NO SMOKING: NO SMOKING Nothing Inside Vagina: No Douching, No [place], No Tampons Diet Discharge Diet: No Restrictions Symptoms to Report to : Bleeding Excessive, Pain Increased, Fever Over 101 Degrees F, Vaginal Bleeding Increase, Questions/Concerns THIERRY CEE DO Dec 10, 2021 08:39
[2021-12-10] MEDS ORDERED: ONDANSETRON 4 MG/2 ML (SDV) Z0FRAN IVP PRN (08:45)
[2021-12-10] MEDS ORDERED: HYDROcodone/APAP 5 MG/325 MG (LORTAB) TAB PO PRN (08:45)
[2021-12-10] MEDS ORDERED: D5 LR IV SOLUTION 1,000 ML IV SCH (08:45)
[2021-12-10] MEDS ORDERED: KETOROLAC 15 MG/ML VIAL IVP PRN (08:45)
[2021-12-10] MEDS ORDERED: DOXYCYCLINE INJECTION 100 MG in NS (IVPB) 100 ML IV ONE (09:00)
[2021-12-10] MEDS ORDERED: SEVOFLURANE (ULTANE) 15 ML INHAL SOLN ONE (09:04)
[2021-12-10] MEDS ORDERED: KETOROLAC 30 MG/ML VIAL IV PRN (10:00)
--- NOTE | 2021-12-10 12:24 | OPERATIVE REPORT ---
DATE OF SERVICE: PREOPERATIVE DIAGNOSES: 1. A 76-year-old female with postmenopausal bleeding. 2. Thickened endometrium on ultrasound. POSTOPERATIVE DIAGNOSES: 1. A 76-year-old female with postmenopausal bleeding. 2. Thickened endometrium on ultrasound. 3. Pyometrium. SURGEON: Thierry Cee DO ANESTHESIA: LMA general. ESTIMATED BLOOD LOSS: Minimal. URINE OUTPUT: 30 mL drained at the end of the procedure. FLUIDS: 800 mL lactated Ringer's solution. FINDINGS: Grossly normal appearing and age-appropriate atrophy to external female genitalia, purulent exudate expressed from the cervix on sounding of the cavity depth. Otherwise, grossly normal appearing anatomy. SPECIMEN SENT: Pyometrium culture and endometrial curettings. INDICATIONS FOR PROCEDURE: This 76-year-old female is a patient consulted to my office for postmenopausal bleeding. She had an ultrasound, which demonstrated a thickened endometrium. Due to this, we discussed proceeding with D and C as endometrial biopsy was not seen as definitive therapy for this if there was a thickened endometrium and endometrial polyp. I discussed with the patient the risk of the procedure after all of her questions were answered with family present, consent was obtained in the preoperative area, the patient was taken to the operating room. OPERATIVE REPORT IN DETAIL: Once in the operating room, anesthesia was found to be adequate, placed in dorsal lithotomy position, prepped and draped in normal sterile fashion where a timeout was performed. Weighted speculum was inserted to the patient's vagina. Right angle retractor was used to visualize the cervix, which was grasped at 12 o'clock position using a single tooth tenaculum. A paracervical block was then performed at 3 and 9 o'clock positions on the cervix. Care was taken to aspirate for injecting a total of 5 mL were injected into each site. I then gently sound the uterine cavity, depth was found to be approximately 5 to 6 cm. There is expression of purulent exudate from the cervix after doing this. I then gently dilated the cervix using Hanks dilators to allow a curettage. In the process of doing this, I collect a culture of the purulent exudate coming from the cervix. I performed a gentle curettage of all endometrial surfaces to ensure removal of the vast majority of the pyometrium that was expressed. I do this until a gentle uterine cry was appreciated. I ordered intraoperatively 100 mg of doxycycline to be given IV for infection prophylaxis due to the risk of infection. The endometrial curettings were collected and sent as endometrial curettings, after which there was no active bleeding noted from any of my dissection planes or the cervix itself. There was no active bleeding noted from the tenaculum site. I removed all the instruments from the patient's vagina. The patient tolerated the procedure well and sent to recovery area in stable condition. Lap and sponge counts were correct at the end of the procedure. Instrument counts correct as well. Job ID: [id number] DocumentID: [id number] Dictated Date: 12/10/2021 09:45:44 Rf Design Engineer Date: 12/10/2021 12:23:01 Dictated By: THIERRY CEE DO
--- NOTE | 2021-12-14 01:36 | Anesthesia-General Post-Op ---
General Significant Intra-Op Events Notes late entry from 12-10-21 at 1000 Patient Condition Mental Status/LOC: Same as Preop Cardiovascular: Satisfactory Nausea/Vomiting: Absent Respiratory: Satisfactory Pain: Controlled Complications: Absent Post Op Complications Complications None Follow Up Care/Instructions Patient Instructions None needed. Anesthesia/Patient Condition Patient Condition Patient is doing well, no complaints, stable vital signs, no apparent adverse anesthesia problems. No complications reported per nursing. CAESAR CASTLE CRNA Dec 14, 2021 01:36
== END 2021-12-10 11:20 | disposition home or self-care (01) ==
LOC: SDC 06:57
PROVIDERS: ATTEND Obstetrics & Gynecology
DX: N95.0 Postmenopausal bleeding (principal); N71.9 Inflammatory disease of uterus, unspecified; R93.89 Abnormal findings on diagnostic imaging of other specified body structures; I25.10 Atherosclerotic heart disease of native coronary artery without angina pectoris; I10 Essential (primary) hypertension; I73.9 Peripheral vascular disease, unspecified; E78.5 Hyperlipidemia, unspecified; G62.9 Polyneuropathy, unspecified; E78.00 Pure hypercholesterolemia, unspecified; F32.A Depression, unspecified; F17.210 Nicotine dependence, cigarettes, uncomplicated; Z79.82 Long term (current) use of aspirin; Z85.828 Personal history of other malignant neoplasm of skin; Z90.89 Acquired absence of other organs; Z79.890 Hormone replacement therapy; Z79.02 Long term (current) use of antithrombotics/antiplatelets; Z95.1 Presence of aortocoronary bypass graft; Z86.73 Personal history of transient ischemic attack (TIA), and cerebral infarction without residual deficits; Z79.891 Long term (current) use of opiate analgesic; Z83.3 Family history of diabetes mellitus
CPT/HCPCS: 36415; 85025; 86850; 86900; 86901; 87070; 87075; 87077; 87081; 87186; 87205; 88305

== ENCOUNTER → 2022-01-01 | Outpatient (CLI) | payer MEDICARE | LOC: CARD 10:00 | PROVIDERS: ATTEND Internal Medicine Cardiovascular Disease | DX: I08.0 Rheumatic disorders of both mitral and aortic valves (principal); I11.9 Hypertensive heart disease without heart failure; I25.10 Atherosclerotic heart disease of native coronary artery without angina pectoris | CPT/HCPCS: 93306 ==

== ENCOUNTER → 2022-08-12 | Outpatient (CLI) | payer MEDICARE, OTHER ==
[~2022-08-12] MED LIST changes: +CATHETER FLUSH 10 ML SYR IVP PRN; +REGADENOSON 0.4 MG/5 ML SYR (LEXISCAN) IV ONE
[2022-08-12 09:39] VITALS: BP 163/92
--- NOTE | 2022-08-12 12:00 | Cardiology Stress Test Report ---
Stress Test Report Date of Procedure/Referring: Date of Procedure: Aug 12, 2022 PCP Ariel De Santiago MD Admitting Physician Admitting Physician: Attending Physician: Abbey Estrella MD Indications: CP Baseline Heart Rate: 67 Baseline Blood Pressure: Blood Pressure Systolic: 163 Blood Pressure Diastolic: 92 Baseline Vitals Vital Signs Date Time Temp Pulse Resp B/P (MAP) Pulse Ox O2 Delivery O2 Flow Rate FiO2 08/12/22 09:39 65 163/92 (115) Baseline EKG: Baseline EKG: NSR Summary After explaining the procedure to the patient, she signed a consent and then brought to the stress nuclear laboratory. Patient received 0.4 mg Lexiscan for stress test, ECG, heart rate and blood pressure were monitored continuously. Resting and stress dose of radio tracer were injected, imaging was acquired and reviewed in short axis, horizontal long axis and vertical long axis views. TID: 1.12 SSS: 6 SDS: 3 EF: 68 1. Patient tolerated Lexiscan well 2. Increase gastric uptake with no significant ischemia or infarction on SPECT images 3. Normal left ventricular size, ejection fraction 68% Copy Copies To 1: [facility] [place] ABBEY ESTRELLA MD Aug 12, 2022 12:00
== END ==
LOC: CARD 08:30
PROVIDERS: ATTEND Internal Medicine Cardiovascular Disease
DX: I25.10 Atherosclerotic heart disease of native coronary artery without angina pectoris (principal); I10 Essential (primary) hypertension
CPT/HCPCS: 78452; 93017; A9502